=== PATIENT | female | born 1980 | race Caucasian/White ===

== ENCOUNTER 2024-08-09 15:57 | Inpatient (IN) | payer OTHER, SELFPAY ==
[2024-08-09 16:33] VITALS: BMI 40.0
[2024-08-09 16:57] VITALS: BP 135/78; PULSE 99; RESP 16; TEMP 37.3; O2SAT 96; O2SAT 97
[2024-08-09 16:58] LABS: Absolute Lymphocyte Count 1.71 X10^3/uL (0.83-4.51); Absolute Neutrophil Count 7.6 X10^3/uL (2.0-7.7); Basophil# 0.02 X10^3/uL; Basophil% 0.2 % (0-1); Eosinophil# 0.07 X10^3/uL; Eosinophils% 0.7 % (0-5); Hematocrit 37.4 % (37-47); Hemoglobin 12.9 g/dL (12.0-15.0); Lymphocyte # 1.71 X10^3/ul (0.83-4.51); Lymphocyte % 17.1 % (19-41); Mean Corp Hgb Conc 34.5 g/dL (32-36); Mean Corpuscular Hgb 29.5 pg (27.0-32.0); Mean Corpuscular Volume 85.6 fL (81-99); Mean Platelet Vol. 10.1 fl (6.2-12.0); Monocyte# 0.52 X10^3/uL; Monocyte% 5.2 % (0-10); NRBC Flagged by Analyzer 0 % (0-5); Neutrophil # 7.62 X10^3/uL (2.7-7.7); Neutrophil % 76.3 % (47-70); Platelet Count 304 K/mm3 (150-450); RBC Distribution Width CV 12.9 % (11.6-14.6); RBC Distribution Width SD 39.8 fl (35.1-43.9); Red Blood Count 4.37 M/mm3 (4.2-5.4)
[2024-08-09 17:33] LABS: Bedside Glucose 97 mg/dL (74-106)
[2024-08-09 17:50] LABS: Syphilis Antibodies Non-reactive
[2024-08-09 18:00] LABS: Prothrombin Time (Protime)PT. 13.3 SECONDS (11.7-14.9)
[2024-08-09 18:01] LABS: Partial Thromboplast Time 26.3 Seconds (24.1-36.2)
[2024-08-09 18:05] LABS: Hemoglobin A1c 5.2 % (3.8-5.6)
[2024-08-09 18:17] LABS: Mucous, Urine 0 SEEN /hpf (<or=2+); Red Blood Cells-Urine 0 SEEN /hpf (0-5)
[2024-08-09 18:20] LABS: Color, Urine Yellow (Yellow); Glucose, Dipstick Normal (Normal); Leukocyte Esterase-Dipstick Negative /ul (Negative); Nitrite-Dipstick Negative (Negative); Occult Blood-Urine 10 /ul (Negative); Protein-Dipstick Negative (Negative); Urine Bilirubin Dipstick Negative (Negative); Urine Clarity Sl. Cloudy (Clear); Urine Urobilinogen Normal (Normal)
[2024-08-09 18:20] LABS: Fibrinogen 540 mg/dl (203-444)
[2024-08-09 18:31] LABS: ALB/GLOB Ratio 0.8 RATIO (0.9-2.4); AST(SGOT) 14 U/L (15-37); Alanine Aminotransfer ALT/SGPT 23 U/L (13-56); Albumin, Serum 3.1 g/dL (3.2-5.0); Alkaline Phosphatase 42 U/L (45-117); Anion Gap 10 (5-15); BUN 8 mg/dL (7-18); BUN/Creat Ratio 15.3 RATIO (10-20); Chloride 109 mmol/L (98-107); Creatinine, Serum 0.52 mg/dL (0.55-1.02); EST Glomerular Filtration Rate 136 mL/min (>60); Est Glom Filt Rate - Afr Amer 165 mL/min (>60); Estimated Creatinine Clearance 167.27 ml/min; Globulin 3.7 g/dL (2.2-4.2); Glucose 92 mg/dL (74-106); Potassium 3.3 mmol/L (3.5-5.1); Protein, Total 6.8 g/dL (6.4-8.2); Sodium Level 138 mmol/L (136-145)
[2024-08-09] MEDS: miSOPROStol 200 MCG Tablet 800 MCG VAGINAL (18:40)
[2024-08-09 19:01] LABS: Ketone-Dipstick 150 mg/dl (Negative)
--- NOTE | 2024-08-09 19:02 | NURSING ---
Per Dr Ansari patient does not require TOCO or US monitoring
[2024-08-09 19:05] LABS: Bacteria RARE /hpf (None Seen); Squamous Epithelial Cells - UA 0-5 SEEN /hpf (5-10); White Blood Cells 0-5 SEEN /hpf (0-5)
[2024-08-09 19:40] VITALS: TEMP 36.8
[2024-08-09 19:41] VITALS: BP 137/64; PULSE 101; RESP 16; TEMP 36.8
[2024-08-09] MEDS: miSOPROStol 200 MCG Tablet 400 MCG VAGINAL (22:49)
[2024-08-09 22:52] VITALS: BP 138/65; PULSE 94
[2024-08-10] VITALS (48 sets, daily range): BP systolic 98–141; BP diastolic 49–82; PULSE 79–114; RESP 16–18; TEMP 35.5–37.2; O2SAT 82–98
--- NOTE | 2024-08-10 00:44 | PCM.HP.OB ---
HPI - General General Date of Admission: 08/09/24 HPI Narrative NITZA PASTRANA, is a 43 F who presents @ 19w1d with demise, confirmed on ultrasound over the weekend with demise infant measuring 15 weeks. no vb lof no regular ctx no fevers or recent illness. she was checking some BS at home and fastings were elevtaed in the 120s and she had some random sugars in the 200s. she had been receiving care by [facility] the [facility] community [facility] ultrasound confirms no color doppler flow, transverse to oblique presentation normal fluid, scalloping of the head/? lemon sign Maternal Data Information DC Calculator Estimated Delivery Date Method Current WG Current Estimate 01/03/25 Manual 19w 1d PFSH [facility] Medical History (Updated 08/10/24 @ 00:[address] Tiffani Ansari MD) Gestational diabetes Home Medications ?Medication ?Instructions ?Recorded ?Last Taken ?Type NK 08/09/24 Unknown History Allergy/AdvReac Type Severity Reaction Status Date / Time No Known Allergies Allergy Verified 08/09/24 16:33 Surgical History History of surgery Social History Smoking Status: Never smoker History Elective abortions Hx Para 3 Spontaneous abortions Hx # Term Pregnancies Ectopic pregnancies Hx # Pregnancies Multiple births # of living children ROS Constitutional Constitutional: Reports systems reviewed and no addt'l complaints, except as documented Eyes Eyes: Denies change in vision ENT HEENT: Reports systems reviewed and no addt'l complaints, except as documented; Denies headache(s) Cardiovascular Cardiovascular: Reports systems reviewed and no addt'l complaints, except as documented; Denies chest pain or dyspnea Respiratory/Chest Respiratory/Chest: Reports systems reviewed and no addt'l complaints, except as documented Gastrointestinal Gastrointestinal: Reports systems reviewed and no addt'l complaints, except as documented; Denies abdominal pain Genitourinary Genitourinary: Reports systems reviewed and no addt'l complaints, except as documented, contractions Details: present (irregular) and movement Details: present; Denies dysuria or genital lesions Musculoskeletal Musculoskeletal: Reports systems reviewed and no addt'l complaints, except as documented Neurologic Neurologic: Reports systems reviewed and no addt'l complaints, except as documented Endocrine Endocrinology: Reports systems reviewed and no addt'l complaints, except as documented Vital Signs Vital Signs Vital Signs: 08/09/24 16:57 08/09/24 16:57 08/09/24 16:57 Temperature Temperature Source Pulse Rate 99 Respiratory Rate Blood Pressure 135/78 H BP Systolic 135 BP Diastolic 78 Pulse Ox 96 08/09/24 16:57 08/09/24 16:57 08/09/24 16:57 Temperature 99.1 F Temperature Source Temporal Pulse Rate Respiratory Rate 16 Blood Pressure BP Systolic BP Diastolic Pulse Ox 08/09/24 16:57 08/09/24 16:57 08/09/24 19:40 Temperature 99.2 F H 98.2 F Temperature Source Pulse Rate Respiratory Rate Blood Pressure BP Systolic BP Diastolic Pulse Ox 97 08/09/24 19:41 08/09/24 19:41 08/09/24 19:41 Temperature Temperature Source Temporal Pulse Rate 101 H Respiratory Rate Blood Pressure 137/64 H BP Systolic 137 BP Diastolic 64 Pulse Ox 08/09/24 19:41 08/09/24 19:41 08/09/24 22:52 Temperature 98.3 F Temperature Source Pulse Rate Respiratory Rate 16 Blood Pressure 138/65 H BP Systolic 138 BP Diastolic 65 Pulse Ox 08/09/24 22:52 Temperature Temperature Source Pulse Rate 94 Respiratory Rate Blood Pressure BP Systolic BP Diastolic Pulse Ox Weight Weight: 233 lb 7.512 oz Body Mass Index (BMI) 40.0 Physical Exam Const alert, oriented x3, no apparent distress and healthy appearing HEENT normocephalic and moist oral mucous membranes Head and Scalp: atraumatic Neck full ROM, no lymphadenopathy, supple and thyroid normal General: trachea midline Lymph Lymphatic: no lymphadenopathy noted Chest inspection of chest normal Resp normal respiratory effort Cardio regular rate GI soft to palpation and non-tender Inspection: gravid Extremity normal to inspection General Extremity: Negative for edema Skin no rashes or lesions noted Neuro no focal motor deficits and deep tendon reflexes 2+ bilaterally Motor Exam: strength 5/5 throughout and clonus absent Psych mental status grossly normal Labs Labs Labs: Blood Type A NEGATIVE Antibody Screen NEGATIVE Hct 37.4 % (37-47) Hgb 12.9 g/dL (12.0-15.0) Syphilis Total Ab Non-reactive Assessment & Plan (1) demise before 20 weeks with retention of fetus: PLAN: Plan plan demise workup, cytotec IOL
[2024-08-10] MEDS: Acetaminophen 500 MG Tablet PO (02:42)
[2024-08-10] MEDS: fentaNYL 100 MCG/2 ML Ampul IV (02:46)
[2024-08-10] MEDS: miSOPROStol 200 MCG Tablet 400 MCG PO (05:23)
--- NOTE | 2024-08-10 05:41 | OB.VAGDELI_ITS ---
Assessment & Plan (1) Vaginal delivery: COMMENT: vaginal breech delivery 19 week demise measuring 15 weeks, carlos service order dispatcher chief patient Maternal Data Information DC Calculator Estimated Delivery Date Method Current WG Current Estimate 01/03/25 Manual 19w 1d Vaginal Delivery Vaginal Delivery Information Procedure Performed: Spontaneous Vaginal Delivery Surgeon/Practitioner: Tiffani Ansari Date of Procedure: 08/10/24 Pre-Procedure Diagnosis: IUFD 19 weeks Post-Procedure Diagnosis: same Type of anesthesia: None Estimated Blood Loss: 300 Findings Description of procedure: patient was feeling pressure and had increased bleeding. Upon vaginal examination the membranes were bulging through the cervix into the vagina with the presenting part of feet. Patient began having nausea and vomiting and spontaneously delivered in with spontaneous rupture of membranes. Cord was clamped and cut and the infant examined and noted to have low-set ears but otherwise no distinguishing abnormal features. Bleeding was within normal limits. Cord clamp placed on the patient's side of the cord and vaginal exam performed and part of the placenta was felt coming through the cervix additional Cytotec dose was given, pitocin started to aid in delivery of the placenta. Expectant management for the placenta was done and retained products noted after 3 hours so decision for d and c made please see separate operative note. ebl [id number] Multi Select Codes Urinary/Genital Urinary/Genital CPT Codes: Other Procedure See Report ([place] [id number] [place] IOL with cytotec delivery of infant under 20 weeks and then d and c for retained placenta)
--- NOTE | 2024-08-10 05:47 | DCINST_ITS ---
Discharge Instructions Diet Discharge Diet: No restrictions Activity Discharge Activity: Return to Normal Activity, May Not Drive (while taking narcotic pain medications.) and May Shower May resume sexual activity in: 4-6 weeks Dressing / Incision Call your doctor if your incision/area has: Continuous Slow Oozing, Sudden Increased Bleeding, Increased Pain/ Swelling, Increased Redness and Foul Smelling Discharge Follow Up Care Please Follow Up With: Tiffani Ansari MD When: Call [phone] to make an appointment with your doctor in 6 weeks. If you had elevated blood pressure or 4th degree laceration, you will need to be seen in 2 weeks. Test Results: Test results from this visit will be discussed in further detail at your follow- up appointment, if applicable. Discharge Plan Admission Admit Date/Time: 08/09/24 15:10 Attending Provider: Tiffani Ansari Primary Care Provider: Lionel Cruz Discharge Orders/Prescriptions Prescriptions: No Action NK Referrals / Follow Up: Lionel Cruz PA-C [Primary Care Provider] -
[2024-08-10] MEDS: Oxytocin 15 Units/NS 250ml 15 UNITS/250 ML IV.SOLN 83 UNITS IV (06:00)
[2024-08-10] MEDS: Ondansetron 4 MG/2 ML Vial IV (06:21)
--- NOTE | 2024-08-10 07:30 | PLAC_PTH ---
PATIENT: NITZA PASTRANA LOC: [facility] U#:[id number] AGE/SX: 43/F ROOM: WP020 RE08/09/[address]: Dr. Tiffani Ansari MD : 1980 BED: 1 DIS: 08/10/2024 SPEC #: [id number] RECD: 08/10/24 10:59 STATUS: KAVEH CAREY #: [id number] JACEK: 08/10/24 07:[address]: Tiffani Ansari DEPT: SURGICAL PATHOLOGY RECD BY: Althea Phillips ENTERED: 08/10/24 11:57 SP TYPE: PLACENTA OTHR DR: Lionel Cruz PA-C Tissues: Placenta, NOS Procedures: Surgery Specimen Level V HEADER OPERATION: Dilation and curettage, suction PRE-OP DIAGNOSIS: demise before 20 weeks with retention of fetus TISSUE SUBMITTED: Retained placenta MICROSCOPIC DIAGNOSIS Retained placenta: Placental disc - disrupted immature placental tissue and blood clots (108gm). - Focal calcification. Membranes - no pathologic diagnosis. Umbilical cord - three blood vessels and no pathologic diagnosis. : 08/11/2024 MICROSCOPIC DESCRIPTION Slides are reviewed. GROSS DESCRIPTION Received in fixative is one container labeled with the patient's name and designated Retained placenta. The specimen consists of placental tissue with marked disruption, separate pieces of placental tissue and blood clots weighing in aggregate 108gm and measuring 11.0 x 10.0 x 3.0cm. Placental tissue also shows presence of membrane which are watts, davis in color. Centrally inserted umbilical cord measures 16.5cm in length and 0.1cm in diameter. Lunch Cook sections are submitted as follows: 1- Membrane roll, 2- Cord, maternal end, 3 -Cord, end, 4- Placental disc, and maternal surfaces, 5- Placental disc, and maternal surfaces, 6- Placental disc, and maternal surfaces. . 08/10/2024 TC:5 CPT:94935
--- NOTE | 2024-08-10 07:49 | PRE.ANES_ITS ---
ASA Classification* ASA Classification ASA Classification: 3 Assessment & Plan Anesthesia* Anesthesia Assessment Anesthesia Assessment: Discussed sedation and/or anesthesia options, risks, benefits, and alternatives with patient/parents/legal guardian/POA. Questions invited. The patient/parents/legal guardian/POA seems to understand and agrees to proceed with anesthesia plan. Reviewed the physical assessment, medical history, allergy history and patient home medications list prior to surgery/procedure/anesthetic and documented any changes. Performed airway and anesthesia risk assessments. Anesthesia Type Anesthesia Type: MAC (Clear liquids until 5Am, No food over 8 hours) Anesthesia Focused Assessment* Temperature: 98.4 F Pulse Rate: 92 Blood Pressure: 127/58 Respiratory Rate: 18 Pulse Ox: 96 Airway Assessment Mouth opens: >3 cm Mallampati Score: II Focused Labs Anesthesia Preop lab: CBC WBC 10.0 K/mm3 (4.4-11.0) 08/09/24 16:45 RBC 4.37 M/mm3 (4.2-5.4) 08/09/24 16:45 Hgb 12.9 g/dL (12.0-15.0) 08/09/24 16:45 Hct 37.4 % (37-47) 08/09/24 16:45 Plt Count 304 K/mm3 (150-450) 08/09/24 16:45 CHEMISTRY Potassium 3.3 mmol/L (3.5-5.1) L 08/09/24 17:00 Sodium 138 mmol/L (136-145) 08/09/24 17:00 BUN 8 mg/dL (7-18) 08/09/24 17:00 Creatinine 0.52 mg/dL (0.55-1.02) L 08/09/24 17:00 Glucose 92 mg/dL (74-106) 08/09/24 17:00 POC Glucose 97 mg/dL (74-106) 08/09/24 17:03 TSH 1.110 uIU/mL (0.358-3.740) 08/09/24 17:00 COAG PT 13.3 SECONDS (11.7-14.9) 08/09/24 17:00 Pre-Assessment Diagnosis/Proposed Procedure Planned Operative Procedure(s): D&C Anesthesia History 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 When Was Last Pacemaker Check QUESTION #4 FULL TEXT: You/Your Family Experience fever (hyperthermia) with Anesthesia Last Oral Intake Last Oral intake: Last Oral Intake NPO since Meds taken in AM with sips of water? Meds patient instructed to take am of surgery PONV PONV - vice president business & corporate development: PONV - vice president business [employer] corporate development Female HX of Motion Sickness HX of N/V After Surgery Non-Smoker Duration of Surgery greater than 60 minutes Number of Risk Factors PONV Score Height & Weight Height & Weight: Anesthesia: Height & Weight Height 5 ft 4 in 08/09/24 16:33 Weight: 105.9 kg 08/09/24 16:33 Body Mass Index (BMI) 40.0 08/09/24 16:33 Respiratory Assessment Respiratory Assessment - vice president business & corporate development: Respiratory Tract Infection Hx - vice president business & corporate development Hx Respiratory Tract Infection STOP Sleep Apnea STOP Sleep Apnea - vice [employer] business [employer] corporate development: STOP Sleep Apnea - vice [employer] business [employer] corporate development Hx Hypertension Hx Sleep Apnea CPAP BIPAP Do you snore loudly (louder than talking or can be heard Do you often feel tired/ fatigued/ sleepy during daytime? Has anyone observed you stop breathing during sleep? STOP Results QUESTION #5 FULL TEXT : Do you snore loudly (louder than talking or can be heard through closed doors)? Tobacco Use History Tobacco Use History - vice president business & corporate development: Tobacco Use History - vice president business & corporate development Tobacco Use Smoking Status Never smoker 08/09/24 16:53 Hx Tobacco Use No 08/09/24 16:53 Years Smoking Packs Smoked per Day Smoking Cessation Date was within the last 15 years Hx Smoking Cessation Date Hx Smoking Cessation Counseling Hematologic Medial History Hematologic Hx - vice president business & corporate development: Hematologic Medical Hx - claims sorter Hx of Blood Transfusion Hx of Transfusion in last 3 Months Date of Last Transfusion (if within last 3 months) Ever experience any problems with transfusion(s)? Specify any problems Hx of Preganancy in last 3 Months Nurse Filling Out Transfusion & Questions: Date: Time: Patient unable to answer at this time (ie. confused, unrespo /Reproduction History /Reproductive History - [employer] president business [employer] corporate development: /Reproductive Hx- vice president business & corporate development Hx Now Gestational Age (in weeks): 19 08/10/24 06:36 EDC: 01/03/25 08/10/24 06:36 Hx 5 08/09/24 16:53 Hx Para 3 08/09/24 16:53 Hx Section SAB 1 08/09/24 16:53 Active Medications Active Medications: Current Medications Generic Name Dose Route Start Last Admin Trade Name Freq PRN Reason Stop Dose Admin Acetaminophen 500 - 1,000 mg 08/09/24 15:56 08/10/24 02:42 Acetaminophen 500 Mg Tablet PO 1,000 mg Q6H PRN PRN Administration Pain Score 1-3 Al Hydroxide/Mg Hydroxide 15 - 30 ml 08/09/24 15:56 Mag Hydrox/Al Hydrox/Simeth 30 Ml Udc PO Q4H PRN PRN INDIGESTION Carboprost Tromethamine 250 mcg 08/09/24 15:56 Carboprost Tromethamine 250 Mcg/Ml Ampul IM X1 PRN Provider Request Citric Acid/Sodium Citrate 30 ml 08/09/24 15:56 Sodium Citrate/Citric Acid 30 Ml Udc PO X1 PRN Section Fentanyl Citrate 25 - 50 mcg 08/09/24 15:56 08/10/24 02:46 Fentanyl 100 Mcg/2 Ml Ampul IV 25 mcg Q2H PRN PRN Administration Pain Score 4-10 Oxytocin/Sodium Chloride 15 units in 250 mls @ 334 mls/hr 08/09/24 15:56 IV .Q45M PRN Post Vaginal Delivery Lactated Ringer's 1,000 mls @ 999 mls/hr 08/09/24 15:56 IV .Q1H1M PRN Epidural Placement Protocol Lactated Ringer's 1,000 mls @ 50 mls/hr 08/09/24 16:00 08/10/24 06:44 IV 08/13/24 19:59 Not Given .Q20H NANCY Protocol Oxytocin/Sodium Chloride 15 units in 250 mls @ 83 mls/hr 08/10/24 05:46 08/10/24 06:00 IV 08/10/24 08:46 83 mls/hr .Q3H1M ONE Administration Lidocaine HCl 0 ml 08/09/24 15:56 Lidocaine 1% (20 Ml Mdv) 20 Ml Vial INFILT X1 PRN Provider Request Methylergonovine Maleate 0.2 mg 08/09/24 15:56 Methylergonovine 0.2 Mg/Ml Ampul IM X1 PRN Provider Request Misoprostol 400 mcg 08/09/24 15:30 08/10/24 06:43 Misoprostol 200 Mcg Tablet VAGINAL Not Given Q4H NANCY Misoprostol 1,000 mcg 08/09/24 15:56 Misoprostol 200 Mcg Tablet RC X1 PRN Provider Request Ondansetron HCl 4 mg 08/09/24 15:56 08/10/24 06:21 Ondansetron 4 Mg/2 Ml Vial IV 4 mg Q4H PRN PRN Administration NAUSEA Oxytocin 10 units 08/09/24 15:56 Oxytocin 10 Units/Ml Vial IM X1 PRN Post Vaginal Delivery Prochlorperazine Edisylate 10 mg 08/09/24 15:56 Prochlorperazine 10 Mg/2 Ml Vial IV Q6H PRN PRN NAUSEA Sodium Chloride 10 - 40 ml 08/09/24 15:56 0.9% Saline Lock 10 Ml Syringe IV X1 PRN SALINE FLUSH PFSH Medical History Gestational diabetes Home Medications ?Medication ?Instructions ?Recorded ?Last Taken ?Type NK 08/09/24 Unknown History Allergy/AdvReac Type Severity Reaction Status Date / Time No Known Allergies Allergy Verified 08/09/24 16:33 Surgical History History of surgery Social History Smoking Status: Never smoker Review of Systems (Anesthesia) ROS Narrative System reviewed and no additional complaints, except as documented.
--- NOTE | 2024-08-10 07:55 | OP.PCM_ITS ---
Problems Associated Problem List Diagnoses (1) Retained placenta: (2) Vaginal delivery: (3) demise before 20 weeks with retention of fetus: Operative Report (Standard) Operative Information Surgery/Procedure Performed: suction d and c Surgeon: Tiffani Ansari Date of Procedure: 08/10/24 Procedure Start Time: 08:15 Procedure Stop Time: 08:25 Pre-Operative Diagnosis: retained POC Post-Operative Diagnosis: same Select all DRAINS/GRAFTS/IMPLANTS that apply: None Type of Anesthesia: IV Sedation Estimated Blood Loss: 200 Specimen collected: Yes Description of specimen(s) removed: placenta Description of surgery: Patient was taken to the operating room and placed under MAC local anesthesia. She was prepped and draped in the normal sterile fashion the dorsal lithotomy position. Bladder was drained of clear urine and anterior lip of the cervix was grasped and after plcaenta noted at the cervical os was removed, multiple pieces were still seen left as it was very friable and fell apart, and the uterus sounded to 10cm. Cervix was progressively dilated to allow passage of a 10mm suction curette. Progressive passes were made removing the retained products of conception without complication. Sharp curettage confirmed complete removal of the retained products. All instruments were removed from the vagina and excellent hemostasis was noted and the patient was taken to recovery in stable condition. Surgical Findings: retained placenta Heat And Vent Aircraft Mechanic residential treatment specialist: No Complications Complications: No Multi Select Codes Urinary/Genital Urinary/Genital CPT Codes: Other Procedure See Report ([place] [id number] because IOL with cytotec delivery of infant under 20 weeks and then d and c for retained placenta)
[2024-08-10] MEDS: Cefazolin 2 GM in Syringe IV (08:03)
--- NOTE | 2024-08-10 08:42 | PCM.POST.ANE ---
Anesthesia: Postop Eval I Current Vital Signs Temperature: 97.8 F Pulse Rate: 94 Blood Pressure: 122/81 Respiratory Rate: 16 Pulse Ox: 98 Oxygen Delivery Method: Room Air Assessment Airway patent: Yes Spontaneous unlabored respirations: Yes Mental status: Awake and Calm nausea: No Vomiting: No Anesthesia Complication: No Fluid Hydration Crystalloid volume administer (ml): 20 Total IV fluid infused: 20 Progress Note Anesthesia document: Postop Eval 1 completed: Yes
[2024-08-10] MEDS: Rho(D) Immune Globulin 300 MCG (1500 Unit) Syringe IV (10:58)
[2024-08-10 11:14] LABS: Hematocrit 35.5 % (37-47); Hemoglobin 12.3 g/dL (12.0-15.0); Mean Corp Hgb Conc 34.6 g/dL (32-36); Mean Corpuscular Hgb 29.6 pg (27.0-32.0); Mean Corpuscular Volume 85.3 fL (81-99); Mean Platelet Vol. 10.1 fl (6.2-12.0); Platelet Count 316 K/mm3 (150-450); RBC Distribution Width CV 12.9 % (11.6-14.6); RBC Distribution Width SD 39.9 fl (35.1-43.9); Red Blood Count 4.16 M/mm3 (4.2-5.4); White Blood Count 10.1 K/mm3 (4.4-11.0)
--- NOTE | 2024-08-10 12:02 | NURSING ---
weight- 1.6 oz, 0.045 gram, length- 5.5 inches, head circ- 3 1/2 inches
--- NOTE | 2024-08-10 13:03 | CASEMGMT ---
Labor and Delivery Pit Crew Support Worker Sw presented to bedside to offer support to patient following demise. Also present was patient's and support person. Patient states that she has support at home and also found in family members and their gnosticism. Patient states that she is considering talking to her candy cooker helper when they have settled at home. Patient states that they have children at home that they know are going to be curious about their loss and they have been talking about how to help them process this. Sw provided parents with mental health resources and websites to utilize to help them process their loss/ grief. Parents were receptive to sw support. Much supportive listening and empathetic support provided. No other needs or concerns at this time. Zach Hernández, ELECTROTYPER APPRENTICE, ABRASIVE GRINDER
[2024-08-10 13:29] LABS: Kleihauer-Betke POSITIVE
--- NOTE | 2024-08-11 09:11 | POSTOPAN2_ITS ---
Anesthesia Postop Eval I Sum Postop Eval Completion status Anesthesia document: Postop Eval 1 completed: Yes Anesthesia Postop Eval I Summary Anesthesia Postop Eval I Summary: Anesthesia Postop Eval I: Assessment Summary Airway patent Yes 08/10/24 08:43 CHARGE MASTER [email or web address] Spontaneous unlabored Yes 08/10/24 08:43 CHARGE MASTER [email or web address] respirations Mental status Awake,Calm 08/10/24 08:43 CHARGE MASTER [email or web address] nausea No 08/10/24 08:43 CHARGE MASTER [email or web address] Vomiting No 08/10/24 08:43 CHARGE MASTER [email or web address] Anesthesia Postop Eval I: Fluid Summary Crystalloid volume administer 20 08/10/24 08:43 CHARGE MASTER [email or web address] (ml) Colloids volume administered ( ml) Blood Product volume administered (ml) Total IV fluid infused 20 08/10/24 08:43 CHARGE MASTER [email or web address] Anesthesia Postop Eval I: Summary Notes Anesthesia Complication No 08/10/24 08:43 CHARGE MASTER [email or web address] Anesthesia Complication Comment: Post-operative progress note Anesthesia: Postop Eval II Evaluation Mental status: Awake and Calm Pain Level: 1 nausea: No Vomiting: No Complications Anesthesia Complication: No
--- NOTE | 2024-08-11 09:11 | PCM.POSTANE2 ---
Anesthesia Postop Eval I Sum Postop Eval Completion status Anesthesia document: Postop Eval 1 completed: Yes Anesthesia Postop Eval I Summary Anesthesia Postop Eval I Summary: Anesthesia Postop Eval I: Assessment Summary Airway patent Yes 08/10/24 08:43 GRADES 1 THROUGH 5 [email or web address] Spontaneous unlabored Yes 08/10/24 08:43 GRADES 1 THROUGH 5 [email or web address] respirations Mental status Awake,Calm 08/10/24 08:43 GRADES 1 THROUGH 5 [email or web address] nausea No 08/10/24 08:43 GRADES 1 THROUGH 5 [email or web address] Vomiting No 08/10/24 08:43 GRADES 1 THROUGH 5 [email or web address] Anesthesia Postop Eval I: Fluid Summary Crystalloid volume administer 20 08/10/24 08:43 GRADES 1 THROUGH 5 [email or web address] (ml) Colloids volume administered ( ml) Blood Product volume administered (ml) Total IV fluid infused 20 08/10/24 08:43 GRADES 1 THROUGH 5 [email or web address] Anesthesia Postop Eval I: Summary Notes Anesthesia Complication No 08/10/24 08:43 GRADES 1 THROUGH 5 [email or web address] Anesthesia Complication Comment: Post-operative progress note Anesthesia: Postop Eval II Evaluation Mental status: Awake and Calm Pain Level: 1 nausea: No Vomiting: No Complications Anesthesia Complication: No
[2024-08-13 14:10] LABS: Anti-Cardiolipin Ab, IgA, Qn < 9 APL U/mL (0-11); Anti-Cardiolipin Ab, IgG, Qn < 9 GPL U/mL (0-14); Anti-Cardiolipin Ab, IgM, Qn < 9 MPL U/mL (0-12); Beta-2-Glycoprotein I IgA <9 (0-25); Beta-2-Glycoprotein I IgG <9 (0-20); Beta-2-Glycoprotein I IgM <9 (0-32); CMV Acute Antibody IgM < 30.0 AU/mL (0.0-29.9); Dilute Prothrombin Time (dPT) 34.2 sec (0.0-47.6); Dilute Russell Viper Venom 38.8 sec (0.0-47.0); Interpretation Comment: (.); PARVOVIRUS B19 IGG 0.2 index (0.0-0.8); PARVOVIRUS B19 IGM 0.1 index (0.0-0.8); Thrombin Time 16.2 sec (0.0-23.0); Toxoplasma Gondii IgG < 3.0 IU/mL (0.0-7.1); Toxoplasma Gondii IgM < 3.0 AU/mL (0.0-7.9); dPT Confirm Ratio 1.22 Ratio (0.00-1.34)
== END 2024-08-10 13:15 | disposition home or self-care (01) | DRG 798 ==
PROVIDERS: Advanced Practice Midwife; Admitting Provider Obstetrics & Gynecology; PCP Physician Assistant; Referring Provider Obstetrics & Gynecology; Visit Provider Obstetrics & Gynecology
PROC: 10D17ZZ Extraction of Products of Conception, Retained, Via Natural or Artificial Opening (ICD-10-PCS; principal; 2024-08-10 07:15)
DX: O02.1 Missed abortion (principal); Z37.1 Single stillbirth; O32.1XX0 Maternal care for breech presentation, not applicable or unspecified; Z3A.19 19 weeks gestation of pregnancy; O73.1 Retained portions of placenta and membranes, without hemorrhage
CPT/HCPCS: 59050; 80053; 81001; 82962; 83036; 84443; 85025; 85027; 85384; 85460; 85610; 85730; 86146; 86147; 86644; 86645; 86747; 86777; 86778; 86780; 86850; 86900; 86901; 87086; 87088; 87653; 88307; 90384; 99221; G0378; J2405; J2790; J2791; J3490

== ENCOUNTER → 2025-01-17 | Outpatient (CLI) | payer OTHER, SELFPAY ==
[2025-01-17 12:10] LABS: Absolute Lymphocyte Count 1.47 X10^3/uL (0.83-4.51); Absolute Neutrophil Count 6.7 X10^3/uL (2.0-7.7); Basophil# 0.03 X10^3/uL; Basophil% 0.3 % (0-1); Eosinophil# 0.01 X10^3/uL; Eosinophils% 0.1 % (0-5); Hematocrit 38.9 % (37-47); Hemoglobin 13.2 g/dL (12.0-15.0); Lymphocyte # 1.47 X10^3/ul (0.83-4.51); Mean Corp Hgb Conc 33.9 g/dL (32-36); Mean Corpuscular Hgb 28.5 pg (27.0-32.0); Monocyte# 0.44 X10^3/uL; Monocyte% 5.1 % (0-10); NRBC Flagged by Analyzer 0 % (0-5); Neutrophil # 6.67 X10^3/uL (2.7-7.7); Neutrophil % 77.3 % (47-70); Platelet Count 320 K/mm3 (150-450); RBC Distribution Width CV 14.9 % (11.6-14.6); RBC Distribution Width SD 45.2 fl (35.1-43.9); Red Blood Count 4.63 M/mm3 (4.2-5.4); White Blood Count 8.6 K/mm3 (4.4-11.0)
[2025-01-17 12:56] LABS: Hemoglobin A1c 5.3 % (<=5.6)
[2025-01-17 13:17] LABS: HIV Nonreactive (Nonreactive); Hepatitis B Surface Antigen Nonreactive (Nonreactive); Hepatitis C Antibody Nonreactive (Nonreactive); Rubella IgG Nonreactive (Nonreactive); Syphilis Antibodies Nonreactive (Nonreactive)
[2025-01-19 06:07] LABS: Chlamydia By Nucleic Acid AMP Negative (Negative); Gonococcus By Nucleic Acid AMP Negative (Negative)
[2025-01-20 10:08] LABS: HPV APTIMA, High Risk Negative (Negative)
== END | disposition home or self-care (01) ==
PROVIDERS: PCP Physician Assistant; Referring Provider Obstetrics & Gynecology; Visit Provider Obstetrics & Gynecology
DX: Z12.4 Encounter for screening for malignant neoplasm of cervix (principal); O99.210 Obesity complicating pregnancy, unspecified trimester; E66.9 Obesity, unspecified; Z3A.00 Weeks of gestation of pregnancy not specified
CPT/HCPCS: 36415; 83036; 85025; 86703; 86762; 86780; 86803; 86850; 86900; 86901; 87086; 87088; 87340; 87491; 87591; 87624; 88175; G0145

== ENCOUNTER → 2025-02-15 | Outpatient (CLI) | payer OTHER, SELFPAY ==
[2025-02-15 16:35] LABS: Protein, Urine (Random) 7.4 mg/dL (0.0-12.0); Protein:Creat Ratio 74 mg/g CRE (0-200)
== END | disposition home or self-care (01) ==
LOC: LABSPEC 14:10
PROVIDERS: PCP Physician Assistant; Referring Provider Nurse Practitioner Women's Health; Visit Provider Nurse Practitioner Women's Health
DX: I10 Essential (primary) hypertension (principal)
CPT/HCPCS: 82570; 84156

== ENCOUNTER → 2025-03-09 | Outpatient (CLI) | payer OTHER, SELFPAY ==
--- NOTE | 2025-03-09 14:46 | US_ITS ---
PROCEDURE: OB ANATOMY W/ TRANSVAGINAL 03/09/2025 REASON FOR EXAM: ANATOMY TECHNIQUE: High resolution obstetric ultrasound performed using a 2D transducer. Standard views obtained, including biometry, anatomy survey, and Doppler studies. FINDINGS Number: 1 Position: Variable between breech and transverse to the right Placental Position: Anterior, low-lying, 0.5 cm from the cervix. Placental Abnormalities: Placenta grade 0 Cervical length: 3.6 cm with closed cervical os DIMENSIONS: Biparietal Diameter: 5.02 cm/21 weeks, 2 days Head Circumference: 19.24 cm/21 weeks, 3 days Abdominal Circumference: 17.14 cm/22 weeks, 1 day Femur Length: 3.36 cm/20 weeks, 4 days ESTIMATED WEIGHT: 423 g +/-64 g ESTIMATED WEIGHT PERCENTILE (24+ weeks): 81 % ESTIMATED GESTATIONAL AGE: Baseline: 20 weeks, 5 days by LMP By Ultrasound: 21 weeks, 0 days ESTIMATED DATE OF DELIVERY: Baseline: 07 22 25 By Ultrasound: 07 20 25 BIOPHYSICAL ASSESSMENT: Amniotic Fluid Volume: 6.2 cm largest vertical pocket. Amniotic Fluid Index: Not calculated (8-24 cm normal range) Cardiac Motion: 164 (average) Trunk and Limb Motion: Present. MATERNAL ANATOMY: Adnexa: Neither maternal ovary is successfully identified. Cervical Length (if measured): 3.6 cm ANATOMY: Spine: Visualized Cranium: Visualized Cerebellum: Visualized 1.93 cm Cisterna Magna: Visualized 0.62 cm Cavum Septum Pellucidi: Visualized Lateral Ventricles: Visualized. 0.86 cm Choroid Plexus: Visualized Midline Falx: Nuchal Fold: Upper Lip: Visualized Heart: Four-chamber heart visualized Ventricular Outflow Tracts: Stomach: Visualized Kidneys: Visualized Bladder: Visualized Umbilical Cord: Visualized cord insertion three-vessel cord visualized Extremities: Visualized US/OB Anatomy w/ Transvaginal IMPRESSION: Live intrauterine gestation 21 weeks, 0 days and estimated due date of 07/20/20 Visualization of midline falx, nuchal fold and ventricular outflow tracts not r ecorded No gross anatomic defects. Estimated weight percentile: 81%. Reading [facility] [place]
== END | disposition home or self-care (01) ==
LOC: US 14:45
PROVIDERS: PCP Physician Assistant; Referring Provider Nurse Practitioner Women's Health; Visit Provider Nurse Practitioner Women's Health
DX: O09.90 Supervision of high risk pregnancy, unspecified, unspecified trimester (principal); Z3A.00 Weeks of gestation of pregnancy not specified
CPT/HCPCS: 76805; 76817

== ENCOUNTER → 2025-04-26 | Outpatient (CLI) | payer OTHER, SELFPAY ==
[2025-04-26 12:24] LABS: Hematocrit 34.8 % (37-47); Hemoglobin 11.9 g/dL (12.0-15.0); Immature Granulocytes Count 0.020 X10^3/uL (0.0-0.0); Mean Corp Hgb Conc 34.2 g/dL (32-36); Mean Corpuscular Volume 87.7 fL (81-99); Mean Platelet Vol. 10.4 fl (6.2-12.0); NRBC Flagged by Analyzer 0 % (0-5); Platelet Count 295 K/mm3 (150-450); RBC Distribution Width CV 13.2 % (11.6-14.6); RBC Distribution Width SD 42.5 fl (35.1-43.9); Red Blood Count 3.97 M/mm3 (4.2-5.4); White Blood Count 9.6 K/mm3 (4.4-11.0)
[2025-04-26 13:53] LABS: Glucose Challenge Gest 1H 50g 119 mg/dL (70-140); HIV Nonreactive (Nonreactive); Syphilis Antibodies Nonreactive (Nonreactive)
== END | disposition home or self-care (01) ==
PROVIDERS: Advanced Practice Midwife; PCP Physician Assistant; Referring Provider Obstetrics & Gynecology; Visit Provider Obstetrics & Gynecology
DX: O09.92 Supervision of high risk pregnancy, unspecified, second trimester (principal); Z3A.25 25 weeks gestation of pregnancy; Z13.1 Encounter for screening for diabetes mellitus
CPT/HCPCS: 36415; 82950; 85025; 86703; 86780; 86850; 86900; 86901

== ENCOUNTER → 2025-05-10 | Outpatient (CLI) | payer OTHER, SELFPAY | END | disposition home or self-care (01) | PROVIDERS: PCP Physician Assistant; Visit Provider Obstetrics & Gynecology | DX: O26.899 Other specified pregnancy related conditions, unspecified trimester (principal); Z67.91 Unspecified blood type, Rh negative; Z3A.00 Weeks of gestation of pregnancy not specified | CPT/HCPCS: 36415; 86850; 86900; 86901 ==

== ENCOUNTER → 2025-05-27 | Outpatient (CLI) | payer OTHER, SELFPAY ==
--- NOTE | 2025-05-27 11:47 | US_ITS ---
PROCEDURE: OB LIMITED WITH BIOMETRICS 05/27/2025 REASON FOR EXAM: GROWTH TECHNIQUE: OB LIMITED WITH BIOMETRICS COMPARISON: Prior study dated March 09, 2025. FINDINGS Number: 1 Position: Breech Placental Position: Anterior and not low-lying Placental Abnormalities: No evidence of previa. DIMENSIONS: Biparietal Diameter: 8.48 cm: 34 weeks and 1 day: 93rd percentile/ Head Circumference: 31.78 cm: 35 weeks and 5 days: 95th percentile/ Abdominal Circumference: 29.14 cm: 33 weeks and 1 day: 80 percentile/ Femur Length: 5.93 cm: 31 weeks and 0 days: 13 percentile/ ESTIMATED WEIGHT: 2041 g plus/-306 g ESTIMATED WEIGHT PERCENTILE (24+ weeks): 63rd ESTIMATED GESTATIONAL AGE: Baseline: 32 weeks and 0 days By Ultrasound: 34 weeks and 5 days ESTIMATED DATE OF DELIVERY: Baseline: July 22, 2025 By Ultrasound: July 03, 2025 BIOPHYSICAL ASSESSMENT: Amniotic Fluid Volume: 5.8 cm Amniotic Fluid Index: 10.8 cm (8-24 cm normal range) Cardiac Motion: 143 beats per min (average) Trunk and Limb Motion: Present. MATERNAL ANATOMY: Adnexa: Neither maternal ovary is successfully identified. Cervical Length (if measured): 4.1 cm US/OB Limited With Biometrics IMPRESSION: Single live intrauterine gestation with a mean gestational age of 32 weeks and 2 days. The measurements obtained today fall within normal expected range. Reading Location: [facility]
== END | disposition home or self-care (01) ==
PROVIDERS: PCP Physician Assistant; Referring Provider Obstetrics & Gynecology; Visit Provider Obstetrics & Gynecology
DX: O09.523 Supervision of elderly multigravida, third trimester (principal); O44.43 Low lying placenta NOS or without hemorrhage, third trimester; O99.213 Obesity complicating pregnancy, third trimester; O16.3 Unspecified maternal hypertension, third trimester; Z3A.32 32 weeks gestation of pregnancy; E66.9 Obesity, unspecified
CPT/HCPCS: 76816

== ENCOUNTER 2025-06-21 17:00 | Observation (INO) | payer SELFPAY ==
[2025-06-21] VITALS (15 sets, daily range): BP systolic 109–142; BP diastolic 55–79; PULSE 83–105; RESP 14–18; TEMP 36.4–36.9; O2SAT 95–100; BMI 40.4
[2025-06-21] MEDS: LACTATED RINGERS 1,000 ML 999 ML IV (12:20)
[2025-06-21] MEDS: Betamethasone/Betamethasone 30 MG/5 ML Vial 12 MG IM (13:06)
[2025-06-22 03:32] VITALS: BP 104/57; PULSE 92; RESP 18; TEMP 36.4; O2SAT 96
[2025-06-22 05:56] VITALS: PULSE 112; O2SAT 97
--- NOTE | 2025-06-22 06:53 | OB.TRI.PN ---
Progress Notes Date of Service: 06/21/25 Progress Note: Patient presents for triage evaluation secondary to uterine contractions at 35 weeks gestation. Was sent from the office for uterine contractions every 3 minutes and tachycardia. FHT: 130 Moderate variability reactive no decelerations category I tracing [place]: Moderate to strong Contractions every 3-4 minutes- now irregular and mild, no cervical change. SVE: 4.5/20/-4 Assessment and plan: IV hydration, Celestone IM x 2, Reactive NST, reassuring maternal and status patient discharged to home to follow-up in office. Will need growth US after friday See problem list details for additional plan information. Charges/Coding Multi Select Codes Visit Charges Office Visit/Consults: 88248 OV L3 Est 20min Urinary/Genital Urinary/Genital CPT Codes: 01335-61 non-stress test Interp Assessment & Plan (1) Uterine contractions during : COMMENT: celestone x 2, IV hydration, reactive NST, no cervical change (2) AMA (advanced maternal age) multigravida 35+: QUALIFIERS: Trimester: third trimester Qualified Code(s): O09.523 - Supervision of elderly multigravida, third trimester COMMENT: normal growth at 32 weeks (3) FH: Down syndrome: COMMENT: Pt Nephew (4) Obesity affecting : QUALIFIERS: Trimester: second trimester Obesity type affecting : unspecified obesity Qualified Code(s): O99.212 - Obesity complicating , second trimester COMMENT: [id number]. Weekly NSTs with growth US every 4w (5) Mild anxiety: (6) HTN (hypertension): QUALIFIERS: Hypertension type: unspecified Qualified Code(s): I10 - Essential (primary) hypertension COMMENT: Pt reports a little on the high side- baseline pih labs at [facility] ob (7) Supervision of high-risk : QUALIFIERS: Trimester: third trimester Qualified Code(s): O09.93 - Supervision of high risk , unspecified, third trimester COMMENT: PRR , [place] 07/22/25, CHIQUI Aldridge & Sohail(adopted), Pérez Medina Matthew, (Joel-19 wk demise), Jomar (8) : QUALIFIERS: Weeks of gestation: 35 weeks Qualified Code(s): Z3A.35 - 35 weeks gestation of COMMENT: discussed NIPT & Carrier testing-undecided (9) History of miscarriage, currently : COMMENT: x2, 2014 9 wk miscarriage, demise @ 19wks 08/2024 (10) Rh negative state in antepartum period: COMMENT: Rhogam given 05/10/25
--- NOTE | 2025-06-22 08:04 | OB.TRI.HP_ITS ---
HPI - General General Date of Admission: 06/21/25 HPI Narrative NITZA PASTRANA, is a 44 F who presents with PTL smptoms irregular ctx no vb lof good fm reeling better overnight no uti symptoms Maternal Data Information DC Calculator Estimated Delivery Date Method Current WG Current Estimate 07/22/25 LMP (Certain) 35w 5d PFSH PFSH Medical History PCOS (polycystic ovarian syndrome) demise before 20 weeks with retention of fetus Retained placenta Gestational diabetes Home Medications ?Medication ?Instructions ?Recorded ?Last Taken ?Type chromium 1,000 mcg tablet See Rx Instructions PO QDAY 01/14/25 Unknown History multivit-min no.71-iron fum 28 cap PO 01/14/25 Unknown History mg-folate no.1 1 mg-dha 300 mg capsule (PNV-[place]andem[place]) ondansetron HCl 4 mg tablet 4 mg PO Q6H PRN nausea and 01/17/25 06/14/25 08:00 Rx vomiting #60 tabs 4 mg Allergy/AdvReac Type Severity Reaction Status Date / Time No Known Allergies Allergy Verified 06/21/25 10:01 Family History Mother Cancer, Onset Age: 65 Leukemia- chronic Sister Cancer, Onset Age: 17 Lymphoma x2 Surgical History H/O dilation and curettage History of surgery Social History adopted: No household members: spouse and children housing: house number of children: 5 current occupational status: employed and unemployed current occupation: [employer] current occupational exposures/hazards: No pets and animals: Yes (chickens, cows) pets and animals: farm animals history of recent travel: No sexually active: Yes Smoking Status: Never smoker alcohol intake: never substance use type: does not use diet: diabetic well-balanced diet: daily or most days caffeine: No eating out: rarely or never during the past year weight has: remained stable what type of physical activity do you participate in: walking frequency: daily duration: < 15 minutes/day song/faith: Anabaptism seatbelt use: sometimes do you feel safe at home: Yes additional social history: - Jomar Singh History 6 Elective abortions Hx Para 3 Spontaneous abortions 2 Hx # Term Pregnancies Ectopic pregnancies Hx # Pregnancies Multiple births # of living children 3 Past Pregnancies Del. Date Name GA/Weeks Outcome Route Bth Weight Gen Labor Lgth Anesthesia Del Locatn Provider FOB Unknown 10/2014 9 spontaneous Unknown adopted Oly (20yo) Unknown adopted Sohail(13yo) 12/13/16 Jose Juan Hadley 40 live - full term 7# Male none Henrik Hadley 07/04/19 Pérez 40 live - full term 9# Male Home Jomar 08/14/21 Sina 38 live - full term 8# Male Home Jomar 08/10/24 Joel 19 still Male none [facility] Delivery Date: Last Updated by: Sonya Courtney D&C Delivery Date: 12/13/16 Last Updated by: Sonya Courtney IOL post date Delivery Date: 07/04/19 Last Updated by: Sonya Courtney PUPS Delivery Date: 08/10/24 Last Updated by: Terra Bains, RN See problem list for complications, and ? diabetes, anora testing sent, & D and C done for retained placenta Visit Details Expected Delivery Route/Plan Labor Preferences- CB/BF classes: no labor support person: Jomar labor intervention preferences: [] pain management options preferred: limited cut cord/dad catch: yes : yes PP control planned: [] discussed possible routes of delivery and associated risks: [] special requests: [] Plans Covid status: [] Flu vaccine: [] Tdap vaccine:declined Rhogam: [] LARC form signed: [] Problem list reviewed and updated with the most current plan of care details and appropriate orders placed. Relevant counseling for the gestational age provided. Continue routine care and follow up unless otherwise noted in visit notes/problem list details OB Flowsheet Initial Weight: 230 lb Date -?-?-?--?-?-?-?-?-?-?-?-?- EGA Weight BP Urine Prot -?-?-?-?-?-?-?-?-?-?-?-?- Glucose FHR FuHt Pres Dilation -?-?-?-?-?-?-?-?-?-?-?-?- Effaced St Visit Note 01/17/25 -?-?-?-?-?-?-?-?-?-?-?-?- 13w 3d 229 lb (-16 oz) 131/81 -?-?-?-?-?-?-?-?-?-?-?-?- 150 -?-?-?-?-?-?-?-?-?-?-?-?- JV- CRL consiste nt with LMP> patient declines NIPT despite AMA. plan for MFM anatomy scan. 02/15/25 -?-?-?-?-?-?-?-?-?-?-?-?- 17w 4d 233 lb 2 oz (+3 lb 2 oz) 132/82 Negative -?-?-?-?-?-?-?-?-?-?-?-?- Negative 151 -?-?-?-?-?-?-?-?-?-?-?-?- -no VB. Nano crum. Getting baseline P/C ratio today as was unable to do with NOB labs. She will RTO 3 weeks inorder to save on drivers with [address] fina 03/09/25 -?-?-?-?-?-?-?-?-?-?-?-?- 20w 5d 233 lb 4 oz (+3 lb 4 oz) 134/82 Negative -?-?-?-?-?-?-?-?-?-?-?-?- Negative 154 -?-?-?-?-?-?-?-?-?-?-?-?- MH-No VB. Quentin Gerard McdonaldHans Has glucose monitor at home and checked FBS and a couple >100 but she doesn't always go 8 hr for fasting. Discussed this, diet. She is checking because of issues in last . She will call w abnormal readings. 04/14/25 -?-?-?-?-?-?-?-?-?-?-?-?- 25w 6d 232 lb 6 oz (+2 lb 6 oz) 116/69 Negative -?-?-?-?-?-?-?-?-?-?-?-?- Negative 154 -?-?-?-?-?-?-?-?-?-?-?-?- KW- no vb/lof/ct x. good fm. adding high protein snack in the evenings to help with fasting numbers- around 100. will bring in numbers next visit and plans to do the 1 hour gct 04/26/25 -?-?-?-?-?-?-?-?-?-?-?-?- 27w 4d 231 lb 6 oz (+1 lb 6 oz) 126/83 Negative -?-?-?-?-?-?-?-?-?-?-?-?- Negative 145 29 -?-?-?-?-?-?-?-?-?-?-?-?- Sm- no vb lof go od fm no regular ctx Sm- no vb lof good fm no reg ular ctx cbc gct today too early for rhogam will give next visit 05/10/25 -?-?-?-?-?-?-?-?-?-?-?-?- 29w 4d 234 lb 1 oz (+4 lb 1 oz) 120/78 Negative -?-?-?-?-?-?-?-?-?-?-?-?- Negative 140 29 -?-?-?-?-?-?-?-?-?-?-?-?- JV- plannign 32 week scan to look at placenta placement. (was 0.5 cm from os) rhogam done today. 05/27/25 -?-?-?-?-?-?-?-?-?-?-?-?- 32w 0d 237 lb (+7 lb) 133/85 Negative -?-?-?-?-?-?-?-?-?-?-?-?- Negative 155 32 -?-?-?-?-?-?-?-?-?-?-?-?- LC- no vb/ctx/lo f. has growth scan this afternoon. mild le swelling in afternoons otherwise no complaints. 06/08/25 -?-?-?-?-?-?-?-?-?-?-?-?- 33w 5d 235 lb 2 oz (+5 lb 2 oz) 111/76 Negative -?-?-?-?-?-?-?-?-?-?-?-?- Negative 140 -?-?-?-?-?-?-?-?-?-?-?-?- MH-reactive NST. No VB, LOF. Good FM. No concerns 06/21/25 -?-?-?-?-?-?-?-?-?-?-?-?- 35w 4d 235 lb 8 oz (+5 lb 8 oz) 124/76 Negative -?-?-?-?-?-?-?-?-?-?-?-?- Negative 165 3 -?-?-?-?-?-?-?-?-?-?-?-?- 70 -3 KW- NST sh ows tachycardia of 165-170 and regular ctx. GBS done and to WP for monitoring ROS Constitutional Constitutional: Reports systems reviewed and no addt'l complaints, except as documented and as per HPI ENT HEENT: Reports systems reviewed and no addt'l complaints, except as documented Cardiovascular Cardiovascular: Reports systems reviewed and no addt'l complaints, except as documented Respiratory/Chest Respiratory/Chest: Reports systems reviewed and no addt'l complaints, except as documented Gastrointestinal Gastrointestinal: Reports as per HPI Genitourinary Genitourinary: Reports as per HPI Musculoskeletal Musculoskeletal: Reports systems reviewed and no addt'l complaints, except as documented Integumentary Integumentary: Reports systems reviewed and no addt'l complaints, except as documented Neurologic Neurologic: Reports systems reviewed and no addt'l complaints, except as documented Physical Exam Const alert, oriented x3 and no apparent distress HEENT Head and Scalp: normocephalic and atraumatic Neck full ROM and no lymphadenopathy Chest inspection of chest normal Resp normal respiratory effort GI GI Narrative: gravid, abdomen nontender, AGA Manual OB Exam: dilated, effaced and station NST FHR Rate Baby A Baseline: 140 Variability:: Moderate Accelerations:: 15 x 15 Decelerations:: None NST Reactive:: Yes FHR Category:: Category I Uterine Activity:: regular q 2-4 Assessment & Plan (1) Uterine contractions during : COMMENT: celestone x 2, IV hydration, reactive NST, no cervical change (2) AMA (advanced maternal age) multigravida 35+: QUALIFIERS: Trimester: third trimester Qualified Code(s): O09.523 - Supervision of elderly multigravida, third trimester COMMENT: normal growth at 32 weeks (3) FH: Down syndrome: COMMENT: Pt Nephew (4) Obesity affecting : QUALIFIERS: Trimester: second trimester Obesity type affecting : unspecified obesity Qualified Code(s): O99.212 - Obesity complicating , second trimester COMMENT: [id number]. Weekly NSTs with growth US every 4w (5) Mild anxiety: (6) HTN (hypertension): QUALIFIERS: Hypertension type: unspecified Qualified Code(s): I10 - Essential (primary) hypertension COMMENT: Pt reports a little on the high side- baseline pih labs at [facility] [place] ob (7) Supervision of high-risk : QUALIFIERS: Trimester: third trimester Qualified Code(s): O09.93 - Supervision of high risk , unspecified, third trimester COMMENT: PRR , [place] 07/22/25, CHIQUI Aldridge & Sohail(adopted), Pérez Medina Matthew, ([facility]-19 wk demise), Jomar (8) : QUALIFIERS: Weeks of gestation: 35 weeks Qualified Code(s): Z3A.35 - 35 weeks gestation of COMMENT: discussed NIPT & Carrier testing-undecided (9) History of miscarriage, currently : COMMENT: x2, 2014 9 wk miscarriage, demise @ 19wks 08/2024 (10) Rh negative state in antepartum period: COMMENT: Rhogam given 05/10/25 PLAN: Plan stable for discharge to home Charges/Coding Multi Select Codes Visit Charges Office Visit/Consults: 57944 OV L3 Est 20min Urinary/Genital Urinary/Genital CPT Codes: 42290-31 non-stress test Interp
[2025-06-22 08:05] VITALS: BP 111/52; PULSE 93; PULSE 99; RESP 14; TEMP 36.7; O2SAT 99
[2025-06-22 08:32] LABS: Color, Urine Yellow (Yellow); Glucose, Dipstick Normal (Normal); Leukocyte Esterase-Dipstick 100 /ul (Negative); Nitrite-Dipstick Negative (Negative); Occult Blood-Urine 25 /ul (Negative); Protein-Dipstick 30 mg/dl (Negative); Specific Gravity, Urine 1.020 (1.002-1.030); Urine Bilirubin Dipstick Negative (Negative)
[2025-06-22 08:34] LABS: Ketone-Dipstick 150 mg/dl (Negative)
[2025-06-22] MEDS: Betamethasone/Betamethasone 30 MG/5 ML Vial 12 MG IM (08:45)
== END 2025-06-22 10:15 | disposition home or self-care (01) ==
LOC: WPOUT 06-22 09:02 → WP 06-22 09:02
PROVIDERS: Obstetrics & Gynecology; Admitting Provider Advanced Practice Midwife; PCP Physician Assistant; Referring Provider Advanced Practice Midwife; Visit Provider Advanced Practice Midwife
DX: O62.9 Abnormality of forces of labor, unspecified (principal); O10.013 Pre-existing essential hypertension complicating pregnancy, third trimester; Z3A.35 35 weeks gestation of pregnancy; O09.523 Supervision of elderly multigravida, third trimester; O26.893 Other specified pregnancy related conditions, third trimester; O09.93 Supervision of high risk pregnancy, unspecified, third trimester; O99.891 Other specified diseases and conditions complicating pregnancy; R00.0 Tachycardia, unspecified; O99.213 Obesity complicating pregnancy, third trimester
CPT/HCPCS: 96360; 36415; 59025; 59050; 76815; 81002; 87077; 87086; 87088; 87186; 96372; 99221; G0378; J0702

== ENCOUNTER → 2025-06-21 | Outpatient (CLI) | payer SELFPAY ==
--- OUTSIDE RECORDS SUMMARY | 2025-06-21 21:11 | XMS RPT_ITS | CCD ---
Author Organization [facility] Care Team Providers Care Container Packer Operator Name Role Phone Anthony ACUNA, Dr. Flowers Primary Care Provider [phone] Anthony ACUNA, Dr. Flowers Referring Provider Dr. Natalie Shelton DO Attending Provider Yovany Shell DO, Dr. Estrada Referring Provider Oscar KRAUSE-Beti Keith Attending Provider Oscar KRAUSE-CBeti Referring Provider [phone] Nori Lomeli CNM Attending Provider Coty BOUDREAUX, Dr. Nixon Attending Provider [phone] Dr. Tiffani Ansari MD Referring Provider [phone] Anthony ACUNA, Dr. Flowers Primary Care Provider [phone] Anthony ACUNA, Dr. Flowers Referring Provider Dr. Natalie Shelton DO Attending Provider Jen Gerber CNM Attending Provider Lionel Cruz Referring Unavailable Natalie Shelton Attending Unavailabl e Lionel Cruz Primary Care Unavailable Lionel Cruz Referring Unavailable Lionel Cruz Primary Care Unavailable Tiffani Ansari Attending Unavailable Beti Moore NP Attending Unavailable Lionel Cruz Primary Care Unavailable CruzLionel alcantar Referring Unavailable CruzLionel alcantar Referring Unavailable Jen Gerber Attending Unavailable Lionel Cruz Primary Care Unavailable Beti Moore NP Attending Unavailable CruzLionel Primary Care Unavailable Cruz, Lionel Referring Unavailable Vande Zulema Shellfer Attending Unavailabl e Cruz, Lionel Primary Care Unavailable Cruz, Lionel Referring Unavailable Cruz, Lionel Referring Unavailable Cruz, Lionel Primary Care Unavailable Crane COLD ROLLING MACHINE SETTER, Beti Attending Unavailable Oscar COLD ROLLING MACHINE SETTER, Beti Attending Unavailable Cruz, Lionel Primary Care Unavailable Crane COLD ROLLING MACHINE SETTER, Beti Referring Unavailable Cruz, Lionel Primary Care Unavailable Marcanthony, Tiffani Referring Unavailable Marcanthony, Tiffani Attending Unavailable Crane COLD ROLLING MACHINE SETTER, Beti Attending Unavailable Cruz, Lionel Primary Care Unavailable Oscar COLD ROLLING MACHINE SETTER, Beti Referring Unavailable Vande Velde, Natalie Referring Unavailabl e Vande Velde, Natalie Attending Unavailabl e Cruz, Lionel Primary Care Unavailable Cruz, Lionel Primary Care Unavailable Marcanthony, Tiffani Referring Unavailable Marcanthony, Tiffani Attending Unavailable Cruz, Lionel Primary Care Unavailable Marcanthony, Tiffani Admitting Unavailable Marcanthony, Tiffani Referring Unavailable Marcanthony, Tiffani Attending Unavailable Cruz, Lionel Primary Care Unavailable Marcanthony, Tiffani Admitting Unavailable Marcanthony, Tiffani Attending Unavailable Yanee Velrufus, Natalie Attending Unavailabl e Cruz, Lionel Primary Care Unavailable Cruz, Lionel Referring Unavailable Cruz, Lionel Primary Care Unavailable Nori Lomeli Attending Unavailable Cruz, Lionel Primary Care Unavailable VimalanthonyTiffani Consulting Unavailable Marcanthony, Tiffani Admitting Unavailable Marcanthony, Tiffani Referring Unavailable Marcanthony, Tiffani Attending Unavailable Cruz, Lionel Referring Unavailable Cruz, Lionel Primary Care Unavailable VimalanthonyTiffani Attending Unavailable Dr. Lionel Cruz PA-C Primary Care Provider Dr. Lionel Cruz PA-C Referring Provider Oscar COLD ROLLING MACHINE SETTER-CBeti Attending Provider Oscar COLD ROLLING MACHINE SETTER-C, Beti Referring Provider Medications Current Medications Medication Drug Class(es) Dates Sig (Normalized) Sig (Original) Chromium (15 sources) Standardized Chemical Allergen Start: 01-14-2025 take 1 tablet by mouth once daily Chromium 1,000 mcg tablet Active 0 PO daily January 14, 2025 12:00am 1000mcg orally daily; Mv-Mins 36-Qung-Phwwj No.1-Dha (Pnv-Zwolle) 28-1-300 mg capsule (15 sources) Start: 01-14-2025 Mv-Mins 78-Cuhz-Uwjgz No.1-Dha (Pnv-Zwolle) 28-1-300 mg capsule Active NMA PO January 14, 2025 12:00am ondansetron 4 mg oral tablet (15 sources) Serotonin-3 Receptor Antagonist Start: 01-17-2025 take 1 tablet by mouth every six hours as needed for nausea and vomiting Ondansetron Hcl 4 mg tablet Active 4 mg PO EVERY 6 HOURS as needed for nausea and vomiting 60 4 January 17, 2025 12:00am Problems Active Problems Problem Classification Problem Date Documented Date Episodic/Chronic Anxiety disorders (20 sources) Mild anxiety; Translations: [Anxiety disorder, unspecified] Onset: 06-13-2025 01-14-2025 Chronic Essential hypertension (20 sources) Hypertensive disorder; Translations: [Essential (primary) hypertension] Onset: 06-13-2025 01-18-2025 Chronic Comment on above: Pt reports a little on the high side- baseline pih labs at new ob Hemorrhage during ; abruptio placenta; placenta previa (20 sources) Low lying placenta; Translations: [Low lying placenta NOS or without hemorrhage, unspecified trimester] Onset: 04-14-2025 03-14-2025 Episodic Comment on above: [facility] will rescan 28 w eeks resolved Other complications of ; puerperium affecting management of mother (15 sources) Retained placenta; Translations: [Retained placenta without hemorrhage] 01-14-2025 Episodic Other complications of (20 sources) Maternal obesity complicating , childbirth and the puerperium, antepartum; Translations: [Obesity complicating , unspecified trimester] 01-14-2025 Chronic Comment on above: HGBA1C [id number]-of. Weekly NS Ts with growth US every 4w Other complications of (1 source) Obesity complicating , second trimester; Translations: [Obesity complicating , second trimester] Onset: 06-14-2025 Chronic Other complications of (1 source) Obesity complicating , unspecified trimester; Translations: [Obesity complicating , unspecified trimester] Onset: 01-17-2025 Chronic Other complications of (20 sources) H/O: miscarriage; Translations: [Supervision of with other poor reproductive or obstetric history, unspecified trimester] 01-14-2025 Episodic Comment on above: x2, 2014 9 wk miscar riage, demise @ 19wks 08/2024 Other complications of (20 sources) High risk ; Translations: [Supervision of high risk , unspecified, unspecified trimester] 01-14-2025 Episodic Comment on above: , [place] 07/22/25, [facility] Soh[facility](adopted), [facility] Matthew, (Joel-19 wk demise), Jomar PRR , [place] , [facility] Sohail(adopted), P[facility]rez Medina Matthew, (Joel-19 wk demise), Jomar Other complications of (15 sources) with abortive outcome; Translations: [Missed ] 01-14-2025 Episodic Other complications of (20 sources) RhD negative; Translations: [Other specified related conditions, unspecified trimester] 01-14-2025 Episodic Comment on above: Rhogam given 05/10/25 Other complications of (20 sources) Multigravida of advanced maternal age; Translations: [Supervision of elderly multigravida, unspecified trimester] 04-14-2025 Episodic Comment on above: normal growth at 32 weeks Other complications of (1 source) Other specified related conditions, unspecified trimester; Translations: [Other specified related conditions, unspecified trimester] Onset: 06-13-2025 Episodic Other complications of (1 source) Supervision of with other poor reproductive or obstetric history, unspecified trimester; Translations: [Supervision of with other poor reproductive or obstetric history, unspecified trimester] Onset: 06-13-2025 Episodic Other complications of (1 source) Supervision of elderly multigravida, unspecified trimester; Translations: [Supervision of elderly multigravida, unspecified trimester] Onset: 06-13-2025 Episodic Other complications of (1 source) Supervision of high risk , unspecified, third trimester; Translations: [Supervision of high risk , unspecified, third trimester] Onset: 06-13-2025 Episodic Other complications of (1 source) Supervision of elderly multigravida, third trimester; Translations: [Supervision of elderly multigravida, third trimester] Onset: 06-13-2025 Episodic Other complications of (1 source) Supervision of high risk , unspecified, second trimester; Translations: [Supervision of high risk , unspecified, second trimester] Onset: 05-10-2025 Episodic Other complications of (1 source) Supervision of high risk , unspecified, unspecified trimester; Translations: [Supervision of high risk , unspecified, unspecified trimester] Onset: 05-10-2025 Episodic Other and delivery including normal (20 sources) Vaginal delivery; Translations: [Encounter for full-term uncomplicated delivery] 01-14-2025 Episodic Comment on above: vaginal breech radha mireles 19 week demise measuring 15 weeks, carlos cna patient discussed NIPT & Car rier testing-undecided Residual codes; unclassified (2 sources) FH: Chromosomal anomaly; Translations: [Family history of other congenital malformations, deformations and chromosomal abnormalities] 01-14-2025 Episodic Comment on above: Pt Nephew Residual codes; unclassified (20 sources) Down's child in family; Translations: [Family history of other congenital malformations, deformations and chromosomal abnormalities] 01-14-2025 Episodic Comment on above: Pt Nephew Residual codes; unclassified (1 source) Unspecified blood type, Rh negative; Translations: [Unspecified blood type, Rh negative] Onset: 06-13-2025 Episodic Residual codes; unclassified (1 source) Family history of other congenital malformations, deformations and chromosomal abnormalities; Translations: [Family history of other congenital malformations, deformations and chromosomal abnormalities] Onset: 06-13-2025 Episodic Residual codes; unclassified (1 source) 33 weeks gestation of ; Translations: [33 weeks gestation of ] Onset: 06-13-2025 Episodic Residual codes; unclassified (1 source) 25 weeks gestation of ; Translations: [25 weeks gestation of ] Onset: 04-14-2025 Episodic Past or Other Problems Problem Classification Problem Date Documented Da te Episodic/Chronic Other complications of (2 sources) Missed ; Translations: [Missed ] Onset: 02-15-2025 Episodic Residual codes; unclassified (1 source) 17 weeks gestation of ; Translations: [17 weeks gestation of ] Onset: 02-15-2025 Episodic Results Test Name Value Interpretation Reference Range Facility Laboratory - Chemistry and C hemistry - challengeOrdered By: Tiffani Littlemustapha on 06-14-2025 Glucose Ql (U) Negative [facility] Laboratory - UrinalysisOrder ed By: Tiffani Ansari on 06-14-2025 Protein Ql (U) Negative [facility] Bench Grinder Office Visit Reporton 06-14-2025 Bench Grinder Office Visit Report [facility] [address], [address] [place] [address] OFFICE VISIT Date of Service: 06/14/25 MR#: [id number] Acct: [id number] Name: NITZA PASTRANA Rep #: [id number] : 1980 Provider: Dr. Tiffani amor MD Age/Sex: 44/F Location: [facility] [place] Status: Signed Intake Vital Signs 04/26/25 10:18 05/10/25 10:21 06/08/25 09:54 06/14/25 10:50 06/14/25 10:51 Height 5 ft 4 in 5 ft 4 in 5 ft 4 in 5 ft 4 in 5 ft 4 in Weight: 235 lb 2 oz 235 lb 7 oz BMI 40.4 40.4 BP 111/76 121/73 H Intake Visit Reasons: 35wk nst only Video Surveillance Technician Required: No Is patient in pain?: No Allergies No Known Allergies Allergy (Verified 06/14/25 10:50) Medications ???Medication ???Instructions ???Recorded ???Confirmed ???Type chromium 1,000 mcg tablet See Rx Instructions PO QDAY 06/14/25 History multivit-min no.71-iron fum 28 cap PO 01/14/25 06/14/25 History mg-folate no.1 1 mg-dha 300 mg capsule (PNV-Zwolle) ondansetron HCl 4 mg tablet 4 mg PO Q6H PRN nausea and 01/17/ 5 06/14/25 Rx vomiting #60 tabs Last Menstrual Period: 10/15/24 Zika: Zika virus screening: Negative : No PFSH PFSH Medical History PCOS (polycystic ovarian syndrome) demise before 20 weeks with retention of fetus Retained placenta Gestational diabetes Surgical History H/O dilation and curettage History of surgery Family History Mother Cancer, Onset Age: 65 Leukemia- chronic Sister Cancer, Onset Age: 17 Lymphoma x2 Social History adopted: No household members: spouse and children housing: house number of children: 5 current occupational status: employed and unemployed current occupation: [employer] current occupational exposures/hazards: No pets and animals: Yes (chickens, cows) pets and animals: farm animals history of recent travel: No sexually active: Yes Smoking Status: Never smoker alcohol intake: never substance use type: does not use diet: diabetic well-balanced diet: daily or most days caffeine: No eating out: rarely or never during the past year weight has: remained stable what type of physical activity do you participate in: walking frequency: daily duration: < 15 minutes/day song/sikh: Confucianism seatbelt use: sometimes do you feel safe at home: Yes additional social history: - Jomar Singh History 6 Elective abortions Hx Para 3 Spontaneous abortions 2 Hx # Term Pregnancies Ectopic pregnancies Hx # Pregnancies Multiple births # of living children 3 Past Pregnancies Del. Date Name GA/Weeks Outcome Route Bth Weight Gen Labor Lgth Anesthesia Del Locatn Provider FOB Unknown 10/2014 9 spontaneous Unknown adopted Oly (20yo) Unknown adopted Sohail(13yo) 12/13/16 Jose Juan Hadley 40 live - full term 7# Male none Henrik Hadley 07/04/19 Pérez 40 live - full term 9# Male Home Jomar 08/14/21 Sina 38 live - full term 8# Male Home Jomar 08/10/24 [facility] 19 still Male none [facility] SM Delivery Date: Last Updated by: Sonya Garzon C Delivery Date: 12/13/16 Last Updated by: Sonya Courtney IOL post date Delivery Date: 07/04/19 Last Updated by: Sonya Tamara Courtney PUPS Delivery Date: 08/10/24 Last Updated by: Terra Bains, RN See problem list for complications, and ? diabetes, anora testing sent, D and C done for retained placenta HPI 35wk nst only Details: NITZA PASTRANA is a 44 year old who presents for routine OB visit. OB Visit DC Calculator Estimated Delivery Date Method Current WG Current Estimate 07/22/25 LMP (Certain) 35w 1d Expected Delivery Route/Plan Labor Preferences- CB/BF classes: no labor support person: Jomar labor intervention preferences: [] pain management options preferred: limited cut cord/dad catch: yes : yes PP control planned: [] discussed possible routes of delivery and associated risks: [] special requests: [] Specific Issue/Plans Covid status: [] Flu vaccine: [] Tdap vaccine:declined Rhogam: [] LARC form signed: [] Problem list reviewed and updated with the most current plan of care details and appropriate orders placed. Relevant counseling for the gestational age provided. Continue routine care and follow up unless otherwise noted in visit notes/problem list details Initial Weight: 230 lb Date -???-???-???-???-?? ?-???-???-???-???-? ??-???-???- EGA Weight BP Urine Pr (more content not included)... Normal [facility] Laboratory - Chemistry and C hemistry - challengeOrdered By: Beti Moore on 06-08-2025 Glucose Ql (U) Negative [facility] Laboratory - UrinalysisOrder ed By: Beti Moore on 06-08-2025 Protein Ql (U) Negative [facility] Bench Grinder Office Visit Reporton 06-08-2025 Bench Grinder Office Visit Report [facility] [address] [place] [address], [address] [place] [address] OFFICE VISIT Date of Service: 06/08/25 MR#: [id number] Acct: [id number] Name: NITZA PASTRANA Rep #: [id number] : 1980 Provider: KALYANI corrigan Age/Sex: 44/F Location: [facility] [place] Status: Signed Intake Vital Signs 04/26/25 10:18 05/27/25 09:46 06/08/25 09:54 Height 5 ft 4 in 5 ft 4 in 5 ft 4 in Weight: 237 lb 235 lb 2 oz BMI 40.6 40.4 BP 133/85 H 111/76 Intake Visit Reasons: 34wk ob/nst Chief Complaint: 34 Week OB/NST Video Surveillance Technician Required: No Is patient in pain?: No Allergies No Known Allergies Allergy (Verified 06/08/25 09:54) Medications ???Medication ???Instructions ???Recorded ???Confirmed ???Type chromium 1,000 mcg tablet See Rx Instructions PO QDAY 06/08/25 History multivit-min no.71-iron fum 28 cap PO 01/14/25 06/08/25 History mg-folate no.1 1 mg-dha 300 mg capsule (PNV-Zwolle) ondansetron HCl 4 mg tablet 4 mg PO Q6H PRN nausea and 5 06/08/25 Rx vomiting #60 tabs Last Menstrual Period: 10/15/24 Zika: Zika virus screening: Negative : No PFSH PFSH Medical History PCOS (polycystic ovarian syndrome) demise before 20 weeks with retention of fetus Retained placenta Gestational diabetes Surgical History H/O dilation and curettage History of surgery Family History Mother Cancer, Onset Age: 65 Leukemia- chronic Sister Cancer, Onset Age: 17 Lymphoma x2 Social History adopted: No household members: spouse and children housing: house number of children: 5 current occupational status: employed and unemployed current occupation: [employer] current occupational exposures/hazards: No pets and animals: Yes (chickens, cows) pets and animals: farm animals history of recent travel: No sexually active: Yes Smoking Status: Never smoker alcohol intake: never substance use type: does not use diet: diabetic well-balanced diet: daily or most days caffeine: No eating out: rarely or never during the past year weight has: remained stable what type of physical activity do you participate in: walking frequency: daily duration: < 15 minutes/day song/sikh: Confucianism seatbelt use: sometimes do you feel safe at home: Yes additional social history: - Jomar Singh History 6 Elective abortions Hx Para 3 Spontaneous abortions 2 Hx # Term Pregnancies Ectopic pregnancies Hx # Pregnancies Multiple births # of living children 3 Past Pregnancies Del. Date Name GA/Weeks Outcome Route Bth Weight Infant Gen Labor Lgth Anesthesia Del Locatn Provider FOB Unknown 10/2014 9 spontaneous Unknown adopted Oly (20yo) Unknown adopted Sohail(13yo) 12/13/16 Jose Juan Hadley 40 live - full term 7# Male none Henrik Carpenter Jomar 07/04/19 P[facility]rez 40 live - full term 9# Male Home Jomar 08/14/21 Sina 38 live - full term 8# Male Home [place] 08/10/24 [facility] 19 still Male none [facility] SM Delivery Date: Last Updated by: Sonya Garzon C Delivery Date: 12/13/16 Last Updated by: Sonya Courtney IOL post date Delivery Date: 07/04/19 Last Updated by: Sonya Courtney PUPS Delivery Date: 08/10/24 Last Updated by: Terra Bains, RN See problem list for complications, and ? diabetes, anora testing sent, D and C done for retained placenta HPI 34wk ob/nst Details: NITZA PASTRANA is a 44 year old who presents for routine OB visit. OB Visit DC Calculator Estimated Delivery Date Method Current WG Current Estimate 07/22/25 LMP (Certain) 33w 5d Expected Delivery Route/Plan Labor Preferences- CB/BF classes: no labor support person: Jomar labor intervention preferences: [] pain management options preferred: limited cut cord/dad catch: yes : yes PP control planned: [] discussed possible routes of delivery and associated risks: [] special requests: [] Specific Issue/Plans Covid status: [] Flu vaccine: [] Tdap vaccine:declined Rhogam: [] LARC form signed: [] Problem list reviewed and updated with the most current plan of care details and appropriate orders placed. Relevant counseling for the gestational age provided. Continue routine care and follow up unless otherwise noted in visit notes/problem list details Initial Weight: 230 lb Date -???-???-???-???-?? ?-???-???-???-???-? ??-???-???- EGA Weight BP Urine Prot -???-???-???-???-?? ?-???-?? (more content not included)... Normal [facility] Laboratory - Chemistry and C hemistry - challengeOrdered By: Jen Gerber on 05-27-2025 Glucose Ql (U) Negative [facility] Laboratory - UrinalysisOrder ed By: Jen Gerber on 05-27-2025 Protein Ql (U) Negative [facility] OB Limited With Biometricson 05-27-2025 OB Limited With Biometrics [facility] [address] [place], [place] [id number] OB Limited With Biometrics MR#: [id number] Acct: [id number] Name: NITZA PASTRANA Rep #: [id number] : 1980 F 44 From: Feliberto vela MD PCP: Lionel Cruz PA-C Status: [facility] Study: OB Limited With Biometrics Date of Exam: 05/27 Exam# [id number] Ordering Dr: Tiffani Ansari PROCEDURE: OB LIMITED WITH BIOMETRICS 05/27/2025 REASON FOR EXAM: GROWTH TECHNIQUE: OB LIMITED WITH BIOMETRICS COMPARISON: Prior study dated March 09, 2025. FINDINGS Number: 1 Position: Breech Placental Position: Anterior and not low-lying Placental Abnormalities: No evidence of previa. DIMENSIONS: Biparietal Diameter: 8.48 cm: 34 weeks and 1 day: 93rd percentile/ Head Circumference: 31.78 cm: 35 weeks and 5 days: 95th percentile/ Abdominal Circumference: 29.14 cm: 33 weeks and 1 day: 80 percentile/ Femur Length: 5.93 cm: 31 weeks and 0 days: 13 percentile/ ESTIMATED WEIGHT: 2041 g plus/-306 g ESTIMATED WEIGHT PERCENTILE (24+ weeks): 63rd ESTIMATED GESTATIONAL AGE: Baseline: 32 weeks and 0 days By Ultrasound: 34 weeks and 5 days ESTIMATED DATE OF DELIVERY: Baseline: July 22, 2025 By Ultrasound: July 03, 2025 BIOPHYSICAL ASSESSMENT: Amniotic Fluid Volume: 5.8 cm Amniotic Fluid Index: 10.8 cm (8-24 cm normal range) Cardiac Motion: 143 beats per min (average) Trunk and Limb Motion: Present. MATERNAL ANATOMY: Adnexa: Neither maternal ovary is successfully identified. Cervical Length (if measured): 4.1 cm US/OB Limited With Biometrics IMPRESSION: Single live intrauterine gestation with a mean gestational age of 32 weeks and 2 days. The measurements obtained today fall within normal expected range. Reading Location: [id number] CC: KALPANA Cruz; Dr. Tiffani Ansari MD Bow Tacker: Signed Normal [facility] Bench Grinder Office Visit Reporton 05-27-2025 Bench Grinder Office Visit Report [facility] [address], [address] [place] [address] OFFICE VISIT Date of Service: 05/27/25 MR#: [id number] Acct: [id number] Name: NITZA PASTRANA Rep #: [id number] : 1980 Provider: ROSEMARY fernandez Age/Sex: 44/F Location: [facility] [place] Status: Signed Intake Vital Signs 03/09/25 13:51 05/10/25 10:21 05/27/25 09:46 Height 5 ft 4 in 5 ft 4 in 5 ft 4 in Weight: 237 lb BMI 40.6 BP 133/85 H Intake Visit Reasons: 32wk ob Video Surveillance Technician Required: No Is patient in pain?: No Allergies No Known Allergies Allergy (Verified 05/27/25 09:46) Medications ???Medication ???Instructions ???Recorded ???Confirmed ???Type chromium 1,000 mcg tablet See Rx Instructions PO QDAY 05/27/25 History multivit-min no.71-iron fum 28 cap PO 01/14/25 05/27/25 History mg-folate no.1 1 mg-dha 300 mg capsule (PNV-Zwolle) ondansetron HCl 4 mg tablet 4 mg PO Q6H PRN nausea and 5 05/27/25 Rx vomiting #60 tabs Last Menstrual Period: 10/15/24 Zika: Zika virus screening: Negative : No Have you fallen in the past year?: No PFSH PFSH Medical History PCOS (polycystic ovarian syndrome) demise before 20 weeks with retention of fetus Retained placenta Gestational diabetes Surgical History H/O dilation and curettage History of surgery Family History Mother Cancer, Onset Age: 65 Leukemia- chronic Sister Cancer, Onset Age: 17 Lymphoma x2 Social History adopted: No household members: spouse and children housing: house number of children: 5 current occupational status: employed and unemployed current occupation: [employer] current occupational exposures/hazards: No pets and animals: Yes (chickens, cows) pets and animals: farm animals history of recent travel: No sexually active: Yes Smoking Status: Never smoker alcohol intake: never substance use type: does not use diet: diabetic well-balanced diet: daily or most days caffeine: No eating out: rarely or never during the past year weight has: remained stable what type of physical activity do you participate in: walking frequency: daily duration: < 15 minutes/day song/sikh: Confucianism seatbelt use: sometimes do you feel safe at home: Yes additional social history: - Jomar Singh History 6 Elective abortions Hx Para 3 Spontaneous abortions 2 Hx # Term Pregnancies Ectopic pregnancies Hx # Pregnancies Multiple births # of living children 3 Past Pregnancies Del. Date Name GA/Weeks Outcome Route Bth Weight Infant Gen Labor Lgth Anesthesia Del Locatn Provider FOB Unknown 10/2014 9 spontaneous Unknown adopted Oly (20yo) Unknown adopted Sohail(13yo) 12/13/16 Jose Juan Hadley 40 live - full term 7# Male none Henrik Hadley 07/04/19 Pérez 40 live - full term 9# Male Home Jomar 08/14/21 Sina 38 live - full term 8# Male Home Jomar 08/10/24 [facility] 19 still Male none [facility] SM Delivery Date: Last Updated by: Sonya Garzon C Delivery Date: 12/13/16 Last Updated by: Sonya Courtney IOL post date Delivery Date: 07/04/19 Last Updated by: Sonya Courtney PUPS Delivery Date: 08/10/24 Last Updated by: Terra Bains, RN See problem list for complications, and ? diabetes, anora testing sent, D and C done for retained placenta HPI 32wk ob Details: NITZA PASTRANA is a 44 year old who presents for routine OB visit. OB Visit DC Calculator Estimated Delivery Date Method Current WG Current Estimate 07/22/25 LMP (Certain) 32w 0d Expected Delivery Route/Plan Labor Preferences- CB/BF classes: [] labor support person: [] labor intervention preferences: [] pain management options preferred: [] cut cord/dad catch: [] : [] PP control planned: [] discussed possible routes of delivery and associated risks: [] special requests: [] Specific Issue/Plans Covid status: [] Flu vaccine: [] Tdap vaccine:declined Rhogam: [] LARC form signed: [] Problem list reviewed and updated with the most current plan of care details and appropriate orders placed. Relevant counseling for the gestational age provided. Continue routine care and follow up unless otherwise noted in visit notes/problem list details Initial Weight: 230 lb Date -???-???-???-???-?? ?-???-???-???-???-? ??-???-???- EGA Weight BP Urine Prot -???-???-???-???-?? ?-???-???-???-???-? ??-???-???- Glucose FHR FuHt Pres Dilation (more content not included)... Normal [facility] - Chemistry and C hemistry - challengeOrdered By: Natalie Shell on 05-10-2025 Glucose Ql (U) Negative [facility] - UrinalysisOrder ed By: Natalie Shell on 05-10-2025 Protein Ql (U) Negative [facility] Bench Grinder Office Visit Reporton 05-10-2025 Bench Grinder Office Visit Report [facility]'s [address], [address] [place] [address] OFFICE VISIT Date of Service: 05/10/25 MR#: [id number] Acct: [id number] Name: NITZA PASTRANA Rep #: [id number] : 1980 Provider: Dr. Natalie Bonner, Age/Sex: 44/F Location: [facility] [place] Status: Signed Intake Vital Signs 03/09/25 13:51 04/26/25 10:18 05/10/25 10:20 05/10/25 10:21 Height 5 ft 4 in 5 ft 4 in 5 ft 4 in 5 ft 4 in Weight: 234 lb 1 oz BMI 40.1 BP 120/78 Intake Visit Reasons: 30wk ob Video Surveillance Technician Required: No Is patient in pain?: No Allergies No Known Allergies Allergy (Verified 05/10/25 10:20) Medications ???Medication ???Instructions ???Recorded ???Confirmed ???Type chromium 1,000 mcg tablet See Rx Instructions PO QDAY 05/10/25 History multivit-min no.71-iron fum 28 cap PO 01/14/25 05/10/25 History mg-folate no.1 1 mg-dha 300 mg capsule (PNV-Zwolle) ondansetron HCl 4 mg tablet 4 mg PO Q6H PRN nausea and 5 05/10/25 Rx vomiting #60 tabs Last Menstrual Period: 10/15/24 Zika: Zika virus screening: Negative : No PFSH PFSH Medical History PCOS (polycystic ovarian syndrome) demise before 20 weeks with retention of fetus Retained placenta Gestational diabetes Surgical History H/O dilation and curettage History of surgery Family History Mother Cancer, Onset Age: 65 Leukemia- chronic Sister Cancer, Onset Age: 17 Lymphoma x2 Social History adopted: No household members: spouse and children housing: house number of children: 5 current occupational status: employed and unemployed current occupation: [employer] current occupational exposures/hazards: No pets and animals: Yes (chickens, cows) pets and animals: farm animals history of recent travel: No sexually active: Yes Smoking Status: Never smoker alcohol intake: never substance use type: does not use diet: diabetic well-balanced diet: daily or most days caffeine: No eating out: rarely or never during the past year weight has: remained stable what type of physical activity do you participate in: walking frequency: daily duration: < 15 minutes/day song/sikh: Confucianism seatbelt use: sometimes do you feel safe at home: Yes additional social history: - Jomar Singh History 6 Elective abortions Hx Para 3 Spontaneous abortions 2 Hx # Term Pregnancies Ectopic pregnancies Hx # Pregnancies Multiple births # of living children 3 Past Pregnancies Del. Date Name GA/Weeks Outcome Route Bth Weight Infant Gen Labor Lgth Anesthesia Del Locatn Provider FOB Unknown 10/2014 9 spontaneous Unknown adopted Oly (20yo) Unknown adopted Sohail(13yo) 12/13/16 Jose Juan Hadley 40 live - full term 7# Male none Henrik Carpenter Jomar 07/04/19 Pérez 40 live - full term 9# Male Home Jomar 08/14/21 Sina 38 live - full term 8# Male Home Jomar 08/10/24 [facility] 19 still Male none [facility] SM Delivery Date: Last Updated by: Sonya Garzon C Delivery Date: 12/13/16 Last Updated by: Sonya Courtney IOL post date Delivery Date: 07/04/19 Last Updated by: Sonya Courtney PUPS Delivery Date: 08/10/24 Last Updated by: Terra Bains, RN See problem list for complications, and ? diabetes, anora testing sent, D and C done for retained placenta HPI 30wk ob Details: NITZA PASTRANA is a 44 year old who presents for routine OB visit. OB Visit DC Calculator Estimated Delivery Date Method Current WG Current Estimate 07/22/25 LMP (Certain) 29w 4d Expected Delivery Route/Plan Labor Preferences- CB/BF classes: [] labor support person: [] labor intervention preferences: [] pain management options preferred: [] cut cord/dad catch: [] : [] PP control planned: [] discussed possible routes of delivery and associated risks: [] special requests: [] Specific Issue/Plans Covid status: [] Flu vaccine: [] Tdap vaccine:declined Rhogam: [] LARC form signed: [] Problem list reviewed and updated with the most current plan of care details and appropriate orders placed. Relevant counseling for the gestational age provided. Continue routine care and follow up unless otherwise noted in visit notes/problem list details Initial Weight: 230 lb Date -???-???-???-???-?? ?-???-???-???-???-? ??-???-???- EGA Weight BP Urine Prot -???-???-???-???-?? ?-???-???-???-???-? ??-???-???- Glucose FHR FuHt (more content not included)... Normal [facility] Type AND Screenon 05-10-2025 Ab SCREEN GEL Negative Normal [facility] Comment on above: Order Comment: PN Performed By: #### L 501.0900 #### [facility] [address] [place], [place] [address]chris [place], [address] Absolute lymphocyte countOrd ered By: Nori Lomeli on 04-26-2025 Lymphocytes Auto (Unsp spec) [#/Vol] 1.53 10*3/uL 0.83-4.51 [facility] Absolute neutrophil countOrd ered By: Nori Lomeli on 04-26-2025 Neutrophils (Bld) [#/Vol] 7.6 10*3/uL 2.0-7.7 [facility] Automated lymphocyte count a s percentage of total leukocytesOrdered By: Nori Lomeli on 04-26-2025 Lymphocytes/100 WBC Auto (Unsp spec) 15.9 % Low 19-41 [facility] Basophil percentageOrdered B y: Nori Lomeli on 04-26-2025 Basophils/100 WBC (Bld) 0.2 % 0-1 [facility] CBC W/Diff, Automatedon 04-06 Absolute Lymph 1.53 X10 3/uL Normal 0.83-4.51 [facility] Comment on above: Performed By: #### L 100.0100, BTS, L3890.6006, L501.0250, L509.8002 #### [facility] [address] [place], [address] Absolute Neut 7.6 X10 3/uL Normal 2.0-7.7 [facility] Comment on above: Performed By: #### L 100.0100, BTS, L3890.6006, L501.0250, L509.8002 #### [facility] [address] [place], [address] Basophils/100 WBC (Bld) 0.2 % Normal 0-1 [facility] Comment on above: Performed By: #### L 100.0100, BTS, L3890.6006, L501.0250, L509.8002 #### [facility] [address] [place], [address] Eosinophils/100 WBC (Bld) 0.2 % Normal 0-5 [facility] Comment on above: Performed By: #### L 100.0100, BTS, L3890.6006, L501.0250, L509.8002 #### [facility] [address] [place], [address] Erythrocyte distribution width (RBC) [Ratio] 13.2 % Normal 11.6-14.6 [facility] Comment on above: Performed By: #### L 100.0100, BTS, L3890.6006, L501.0250, L509.8002 #### [facility] [address] [place], [address] Hematocrit (Bld) [Volume fraction] 34.8 % Low 37-47 [facility] Comment on above: Performed By: #### L 100.0100, BTS, L3890.6006, L501.0250, L509.8002 #### [facility] [address] [place], [address] Hemoglobin (Bld) [Mass/Vol] 11.9 g/dL Low 12.0-15.0 [facility] Comment on above: Performed By: #### L 100.0100, BTS, L3890.6006, L501.0250, L509.8002 #### [facility] [address] [place], [address] IG% 0.200 Normal 0.0-0.9 [facility] Comment on above: Result Comment: IG% - Immature Granulocytes (promyelocytes, myelocytes and metamyelocytes) > 1% indicates that a LEFT SHIFT is Present. Performed By: #### L 100.0100, BTS, L3890.6006, L501.0250, L509.8002 #### [facility] [address] [place], [address] Lymphocytes/100 WBC (Bld) 15.9 % Low 19-41 [facility] Comment on above: Performed By: #### L 100.0100, BTS, L3890.6006, L501.0250, L509.8002 #### [facility] [address] [place], [address] MCH (RBC) [Entitic mass] 30.0 pg Normal 27.0-32.0 [facility] Comment on above: Performed By: #### L 100.0100, BTS, L3890.6006, L501.0250, L509.8002 #### [facility] [address] [place], [address] MCHC (RBC) [Mass/Vol] 34.2 g/dL Normal 32-36 [facility] Comment on above: Performed By: #### L 100.0100, BTS, L3890.6006, L501.0250, L509.8002 #### [facility] [address] [place], [address] MCV (RBC) [Entitic vol] 87.7 fL Normal 81-99 [facility] Comment on above: Performed By: #### L 100.0100, BTS, L3890.6006, L501.0250, L509.8002 #### [facility] [address] [place], [address] Monocytes/100 WBC (Bld) 4.8 % Normal 0-10 [facility] Comment on above: Performed By: #### L 100.0100, BTS, L3890.6006, L501.0250, L509.8002 #### [facility] [address] [place], [address] Neutrophils/100 WBC (Bld) 78.7 % High 47-70 [facility] Comment on above: Performed By: #### L 100.0100, BTS, L3890.6006, L501.0250, L509.8002 #### [facility] [address] [place], [address] Nucleated RBC (Bld) [#/Vol] 0 10*3/uL Normal 0-5 [facility] Comment on above: Performed By: #### L 100.0100, BTS, L3890.6006, L501.0250, L509.8002 #### [facility] [address] [place], [address] Platelet mean volume (Bld) [Entitic vol] 10.4 fL Normal 6.2-12.0 [facility] Comment on above: Performed By: #### L 100.0100, BTS, L3890.6006, L501.0250, L509.8002 #### [facility] [address] [place], [address] Platelets (Bld) [#/Vol] 295 10*3/uL Normal 150-450 [facility] Comment on above: Performed By: #### L 100.0100, BTS, L3890.6006, L501.0250, L509.8002 #### [facility] [address] [place], [address] RBC (Bld) [#/Vol] 3.97 10*6/uL Low 4.2-5.4 [facility] Comment on above: Performed By: #### L 100.0100, BTS, L3890.6006, L501.0250, L509.8002 #### [facility] [address] [place], [address] RDW SD 42.5 fl Normal 35.1-43.9 [facility] Comment on above: Performed By: #### L 100.0100, BTS, L3890.6006, L501.0250, L509.8002 #### [facility] [address] [place], [address] WBC (Bld) [#/Vol] 9.6 10*3/uL Normal 4.4-11.0 [facility] Comment on above: Performed By: #### L 100.0100, BTS, L3890.6006, L501.0250, L509.8002 #### [facility] [address] [place], [address] Eosinophil percentageOrdered By: Nori Lomeli on 04-26-2025 Eosinophils/100 WBC (Bld) 0.2 % 0-5 [facility] Erythrocyte distribution wid th ratioOrdered By: Nori Lomeli on 04-26-2025 Erythrocyte distribution width (RBC) [Ratio] 13.2 % 11.6-14.6 [facility] Erythrocyte distribution wid th standard deviationOrdered By: Nori Lomeli on 04-26-2025 Erythrocyte distribution width (RBC) [Ratio] 42.5 fl 35.1-43.9 [facility] Glucose Challenge Gest 1H 50 patty 04-26-2025 GLU GEST 50g 1H 119 mg/dL Normal 70-140 [facility] Comment on above: Performed By: #### L 100.0100, BTS, L3890.6006, L501.0250, L509.8002 #### [facility] [address] [place], [place], [id number] Glucose measurement at 2 josee rs post-dose gestational glucose tolerance testOrdered By: Nori Lomeli on 04-26-2025 Glucose [Mass/Vol] 119 mg/dL 70-140 [facility] HIVon 04-26-2025 HIV Non-Reactive Normal Nonreactive [facility] Comment on above: Result Comment: Non- Reactive Reactive Repeatedly reactive samples must be confirmed according to CDC recommended confirmatory algorithms. The subresults for either HIVAG or AHIV can be used as an aid in the selection of the confirmation algorithm for reactive samples. Send out specimens with Reactive results to [facility] for confirmation. Order the HIV antibody detection and differentiation: lc#[id number] Performed By: #### L 100.0100, BTS, L3890.6006, L501.0250, L509.8002 #### [facility] [address] [place], [place], [id number] Hematocrit Auto (Bld) [Volum e fraction]Ordered By: Nori Lomeli on 04-26-2025 Hematocrit (Bld) [Volume fraction] 34.8 % Low 37-47 [facility] Hemoglobin measurementOrdere d By: Nori Lomeli on 04-26-2025 Hemoglobin (Bld) [Mass/Vol] 11.9 g/dL Low 12.0-15.0 [facility] Immature granulocytes/100 WB C Auto (Bld)Ordered By: Nori Lomeli on 04-26-2025 Immature granulocytes/100 WBC (Bld) 0.200 % 0.0-0.9 [facility] Comment on above: IG% - Immature Granu locytes (promyelocytes, myelocytes and metamyelocytes) > 1% indicates that a LEFT SHIFT is Present. Laboratory - Chemistry and C hemistry - challengeOrdered By: Tiffani Ansari on 04-26-2025 Glucose Ql (U) Negative [facility] - UrinalysisOrder ed By: Tiffani Ansari on 04-26-2025 Protein Ql (U) Negative [facility] MCV (mean corpuscular volume ) determinationOrdered By: Nori Lomeli on 04-26-2025 MCV (RBC) [Entitic vol] 87.7 fL 81-99 [facility] Mean corpuscular hemoglobin (MCH) determinationOrdered By: Nori Lomeli on 04-26-2025 MCH (RBC) [Entitic mass] 30.0 pg 27.0-32.0 [facility] Mean corpuscular hemoglobin concentration (MCHC) determinationOrdered By: Nori Lomeli on 04-26-2025 MCHC (RBC) [Mass/Vol] 34.2 g/dL 32-36 [facility] Mean platelet volume determi nationOrdered By: Nori Lomeli on 04-26-2025 Platelet mean volume (Bld) [Entitic vol] 10.4 fL 6.2-12.0 [facility] Monocyte percentageOrdered B y: Nori Lomeli on 04-26-2025 Monocytes/100 WBC (Bld) 4.8 % 0-10 [facility] Neutrophil percentageOrdered By: Nori Lomeli on 04-26-2025 Neutrophils/100 WBC (Bld) 78.7 % High 47-70 [facility] No Panel InformationOrdered By: Nori Lomeli on 04-26-2025 HIV (1&2) Antibody Non-Reactive Nonreactive [facility] Comment on above: Non-ReactiveReactive Repeatedly reactive samples must be confirmed according to CDC recommended confirmatory algorithms. The subresults for either HIVAG or AHIV can be used as an aid in the selection of the confirmation algorithm for reactive samples.Send out specimens with Reactive results to [facility] for confirmation.Order the HIV antibody detection and differentiation: #[id number] Nucleated red blood cell per centageOrdered By: Nori Lomeli on 04-26-2025 Nucleated RBC/100 WBC (Bld) [Ratio] 0 % 0-5 [facility] Bench Grinder Office Visit Reporton 04-26-2025 Bench Grinder Office Visit Report [facility] [address], [address] [place] [address] OFFICE VISIT Date of Service: 04/26/25 MR#: [id number] Acct: [id number] Name: NITZA PASTRANA Rep #: [id number] : 1980 Provider: Dr. Tiffani amor MD Age/Sex: 44/F Location: [facility] [place] Status: Signed Intake Vital Signs 02/15/25 13:08 04/14/25 15:33 04/26/25 10:18 Height 5 ft 4 in 5 ft 4 in 5 ft 4 in Weight: 231 lb 6 oz BMI 39.6 BP 126/83 H Intake Visit Reasons: 28 wk ob/glucose Video Surveillance Technician Required: No Is patient in pain?: No Allergies No Known Allergies Allergy (Verified 04/26/25 10:20) Medications ???Medication ???Instructions ???Recorded ???Confirmed ???Type chromium 1,000 mcg tablet See Rx Instructions PO QDAY 04/26/25 History multivit-min no.71-iron fum 28 cap PO 01/14/25 04/26/25 History mg-folate no.1 1 mg-dha 300 mg capsule (PNV-Zwolle) ondansetron HCl 4 mg tablet 4 mg PO Q6H PRN nausea and 01/17/ 5 04/26/25 Rx vomiting #60 tabs Last Menstrual Period: 10/15/24 Zika: Zika virus screening: Negative : No PFSH PFSH Medical History PCOS (polycystic ovarian syndrome) demise before 20 weeks with retention of fetus Retained placenta Gestational diabetes Surgical History H/O dilation and curettage History of surgery Family History Mother Cancer, Onset Age: 65 Leukemia- chronic Sister Cancer, Onset Age: 17 Lymphoma x2 Social History adopted: No household members: spouse and children housing: house number of children: 5 current occupational status: employed and unemployed current occupation: [employer] current occupational exposures/hazards: No pets and animals: Yes (chickens, cows) pets and animals: farm animals history of recent travel: No sexually active: Yes Smoking Status: Never smoker alcohol intake: never substance use type: does not use diet: diabetic well-balanced diet: daily or most days caffeine: No eating out: rarely or never during the past year weight has: remained stable what type of physical activity do you participate in: walking frequency: daily duration: < 15 minutes/day song/sikh: Confucianism seatbelt use: sometimes do you feel safe at home: Yes additional social history: - Jomar Singh History 6 Elective abortions Hx Para 3 Spontaneous abortions 2 Hx # Term Pregnancies Ectopic pregnancies Hx # Pregnancies Multiple births # of living children 3 Past Pregnancies Del. Date Name GA/Weeks Outcome Route Bth Weight Infant Gen Labor Lgth Anesthesia Del Locatn Provider FOB Unknown 10/2014 9 spontaneous Unknown adopted Oly (20yo) Unknown adopted Sohail(13yo) 12/13/16 Jose Juan Hadley 40 live - full term 7# Male none Henrik Carpenter Jomar 07/04/19 Pérez 40 live - full term 9# Male Home Jomar 08/14/21 Sina 38 live - full term 8# Male Home Jomar 08/10/24 [facility] 19 still Male none [facility] Delivery Date: Last Updated by: Sonya Garzon C Delivery Date: 12/13/16 Last Updated by: Sonya Courtney IOL post date Delivery Date: 07/04/19 Last Updated by: Sonya Courtney PUPS Delivery Date: 08/10/24 Last Updated by: Terra Bains, RN See problem list for complications, and ? diabetes, anora testing sent, D and C done for retained placenta HPI 28 wk ob/glucose Details: NITZA PASTRANA is a 44 year old who presents for routine OB visit. OB Visit DC Calculator Estimated Delivery Date Method Current WG Current Estimate 07/22/25 LMP (Certain) 27w 4d Expected Delivery Route/Plan Labor Preferences- CB/BF classes: [] labor support person: [] labor intervention preferences: [] pain management options preferred: [] cut cord/dad catch: [] : [] PP control planned: [] discussed possible routes of delivery and associated risks: [] special requests: [] Specific Issue/Plans Covid status: [] Flu vaccine: [] Tdap vaccine:declined Rhogam: [] LARC form signed: [] Problem list reviewed and updated with the most current plan of care details and appropriate orders placed. Relevant counseling for the gestational age provided. Continue routine care and follow up unless otherwise noted in visit notes/problem list details Initial Weight: 230 lb Date -???-???-???-???-?? ?-???-???-???-???-? ??-???-???- EGA Weight BP Urine Prot -???-???-???-???-?? ?-???-???-???-???-? ??-???-???- Glucose FHR FuHt Pres Dilation (more content not included)... Normal [facility] Platelet countOrdered By: Luis Felipe Lomeli on 04-26-2025 Platelets (Bld) [#/Vol] 295 10*3/uL 150-450 [facility] RBC Auto (Bld) [#/Vol]Ordere d By: Nori Lomeli on 04-26-2025 RBC (Bld) [#/Vol] 3.97 10*6/uL Low 4.2-5.4 [facility] Syphilis Antibodieson 2024 Syphilis Abs Non-Reactive Normal Nonreactive [facility] Comment on above: Performed By: #### L 100.0100, BTS, L3890.6006, L501.0250, L509.8002 #### [facility] [address] [place], [place], [id number] Type AND Screenon 04-26-2025 Ab SCREEN GEL Negative Normal [facility] Comment on above: Order Comment: PN Performed By: #### L 100.0100, BTS, L3890.6006, L501.0250, L509.8002 #### [facility] [address] [place], [address] White blood cell (WBC) count Ordered By: Nori Lomeli on 04-26-2025 WBC (Bld) [#/Vol] 9.6 10*3/uL 4.4-11.0 [facility] - Chemistry and C hemistry - challengeOrdered By: Nori Lomeli on 04-14-2025 Glucose Ql (U) Negative [facility] - UrinalysisOrder ed By: Nori Lomeli on 04-14-2025 Protein Ql (U) Negative [facility] Bench Grinder Office Visit Reporton 04-14-2025 Bench Grinder Office Visit Report [facility] [address], [address] [place] [address] OFFICE VISIT Date of Service: 04/14/25 MR#: [id number] Acct: [id number] Name: NITZA PASTRANA Rep #: [id number] : 1980 Provider: ROSEMARY Castillo ams Age/Sex: 44/F Location: [facility] [place] Status: Signed Intake Vital Signs 02/15/25 13:08 03/09/25 13:51 04/14/25 15:33 Height 5 ft 4 in 5 ft 4 in 5 ft 4 in Weight: 232 lb 6 oz BMI 39.9 BP 116/69 Intake Visit Reasons: 25 wk ob Chief Complaint: 25wk ob Video Surveillance Technician Required: No Is patient in pain?: No Allergies No Known Allergies Allergy (Verified 04/14/25 15:32) Medications ???Medication ???Instructions ???Recorded ???Confirmed ???Type chromium 1,000 mcg tablet See Rx Instructions PO QDAY 04/14/25 History multivit-min no.71-iron fum 28 cap PO 01/14/25 04/14/25 History mg-folate no.1 1 mg-dha 300 mg capsule (PNV-Zwolle) ondansetron HCl 4 mg tablet 4 mg PO Q6H PRN nausea and 01/17/2 5 04/14/25 Rx vomiting #60 tabs Last Menstrual Period: 10/15/24 : No PFSH PFSH Medical History PCOS (polycystic ovarian syndrome) demise before 20 weeks with retention of fetus Retained placenta Gestational diabetes Surgical History H/O dilation and curettage History of surgery Family History Mother Cancer, Onset Age: 65 Leukemia- chronic Sister Cancer, Onset Age: 17 Lymphoma x2 Social History adopted: No household members: spouse and children housing: house number of children: 5 current occupational status: employed and unemployed current occupation: [employer] current occupational exposures/hazards: No pets and animals: Yes (chickens, cows) pets and animals: farm animals history of recent travel: No sexually active: Yes Smoking Status: Never smoker alcohol intake: never substance use type: does not use diet: diabetic well-balanced diet: daily or most days caffeine: No eating out: rarely or never during the past year weight has: remained stable what type of physical activity do you participate in: walking frequency: daily duration: < 15 minutes/day song/sikh: Confucianism seatbelt use: sometimes do you feel safe at home: Yes additional social history: - Jomar Singh History 6 Elective abortions Hx Para 3 Spontaneous abortions 2 Hx # Term Pregnancies Ectopic pregnancies Hx # Pregnancies Multiple births # of living children 3 Past Pregnancies Del. Date Name GA/Weeks Outcome Route Bth Weight Gen Labor Lgth Anesthesia Del Locatn Provider FOB Unknown 10/2014 9 spontaneous Unknown adopted Oly (20yo) Unknown adopted Sohail(13yo) 12/13/16 Jose Juan Hadley 40 live - full term 7# Male none Henrik Hadley 07/04/19 Pérez 40 live - full term 9# Male Home Jomar 08/14/21 Sina 38 live - full term 8# Male Home Jomar 08/10/24 [facility] 19 still Male none [facility] SM Delivery Date: Last Updated by: Sonya Garzon C Delivery Date: 12/13/16 Last Updated by: Sonya Courtney IOL post date Delivery Date: 07/04/19 Last Updated by: Sonya Courtney PUPS Delivery Date: 08/10/24 Last Updated by: Terra Bains, RN See problem list for complications, and ? diabetes, anora testing sent, D and C done for retained placenta HPI 25 wk ob Details: NITZA PASTRANA is a 44 year old who presents for routine OB visit. OB Visit DC Calculator Estimated Delivery Date Method Current WG Current Estimate 07/22/25 LMP (Certain) 25w 6d Expected Delivery Route/Plan Labor Preferences- CB/BF classes: [] labor support person: [] labor intervention preferences: [] pain management options preferred: [] cut cord/dad catch: [] : [] PP control planned: [] discussed possible routes of delivery and associated risks: [] special requests: [] Specific Issue/Plans Covid status: [] Flu vaccine: [] Tdap vaccine: [] Rhogam: [] LARC form signed: [] Problem list reviewed and updated with the most current plan of care details and appropriate orders placed. Relevant counseling for the gestational age provided. Continue routine care and follow up unless otherwise noted in visit notes/problem list details Initial Weight: Not Recorded Date -???-???-???-???-?? ?-???-???-???-???-? ??-???-???- EGA Weight BP Urine Prot -???-???-???-???-?? ?-???-???-???-???-? ??-???-???- Glucose FHR FuHt Pres Dilation -???-???-???-???-?? ?-???-???-???-???-? ??-???-???- (more content not included)... Normal [facility] - Chemistry and C hemistry - challengeOrdered By: Beti Moore on 03-09-2025 Glucose Ql (U) Negative [facility] - UrinalysisOrder ed By: Beti Moore on 03-09-2025 Protein Ql (U) Negative [facility] OB Anatomy w/ Transvaginalon 03-09-2025 OB Anatomy w/ Transvaginal [facility] [address] [place] [id number] OB Anatomy w/ Transvaginal MR#: [id number] Acct: [id number] Name: NITZA PASTRANA Rep #: [id number] : 1980 F 44 From: Caleb Bolaños DO PCP: Lionel Cruz PA-C Status: REG CLI Study: OB Anatomy w/ Transvaginal Date of Exam: 03/09 Exam# [id number] Ordering Dr: Beti Moore COLD ROLLING MACHINE SETTER COLD ROLLING MACHINE SETTER -C PROCEDURE: OB ANATOMY W/ TRANSVAGINAL 03/09/2025 REASON FOR EXAM: ANATOMY TECHNIQUE: High resolution obstetric ultrasound performed using a 2D transducer. Standard views obtained, including biometry, anatomy survey, and Doppler studies. FINDINGS Number: 1 Position: Variable between breech and transverse to the right Placental Position: Anterior, low-lying, 0.5 cm from the cervix. Placental Abnormalities: Placenta grade 0 Cervical length: 3.6 cm with closed cervical os DIMENSIONS: Biparietal Diameter: 5.02 cm/21 weeks, 2 days Head Circumference: 19.24 cm/21 weeks, 3 days Abdominal Circumference: 17.14 cm/22 weeks, 1 day Femur Length: 3.36 cm/20 weeks, 4 days ESTIMATED WEIGHT: 423 g +/-64 g ESTIMATED WEIGHT PERCENTILE (24+ weeks): 81 % ESTIMATED GESTATIONAL AGE: Baseline: 20 weeks, 5 days by LMP By Ultrasound: 21 weeks, 0 days ESTIMATED DATE OF DELIVERY: Baseline: 07 22 25 By Ultrasound: 07 20 25 BIOPHYSICAL ASSESSMENT: Amniotic Fluid Volume: 6.2 cm largest vertical pocket. Amniotic Fluid Index: Not calculated (8-24 cm normal range) Cardiac Motion: 164 (average) Trunk and Limb Motion: Present. MATERNAL ANATOMY: Adnexa: Neither maternal ovary is successfully identified. Cervical Length (if measured): 3.6 cm ANATOMY: Spine: Visualized Cranium: Visualized Cerebellum: Visualized 1.93 cm Cisterna Magna: Visualized 0.62 cm Cavum Septum Pellucidi: Visualized Lateral Ventricles: Visualized. 0.86 cm Choroid Plexus: Visualized Midline Falx: Nuchal Fold: Upper Lip: Visualized Heart: Four-chamber heart visualized Ventricular Outflow Tracts: Stomach: Visualized Kidneys: Visualized Bladder: Visualized Umbilical Cord: Visualized cord insertion three-vessel cord visualized Extremities: Visualized US/OB Anatomy w/ Transvaginal IMPRESSION: Live intrauterine gestation 21 weeks, 0 days and estimated due date of 07/20/2020 Visualization of midline falx, nuchal fold and ventricular outflow tracts not recorded No gross anatomic defects. Estimated weight percentile: 81%. Reading Location: [facility] CC: KALYANI Moore; KALPANA Cruz Bow Tacker: Signed Normal [facility] Bench Grinder Office Visit Reporton 03-09-2025 Bench Grinder Office Visit Report [facility]'s [address], [address] [place] [address] OFFICE VISIT Date of Service: 03/09/25 MR#: [id number] Acct: [id number] Name: NITZA PASTRANA Rep #: [id number] : 1980 Provider: KALYANI corrigan Age/Sex: 44/F [place] [facility] Status: Signed Intake Vital Signs 01/17/25 10:12 02/15/25 13:08 03/09/25 13:51 Height 5 ft 4 in 5 ft 4 in 5 ft 4 in Weight: 233 lb 4 oz BMI 40.0 BP 134/82 H Intake Visit Reasons: 21 wk ob Chief Complaint: 21 Week OB Video Surveillance Technician Required: No Is patient in pain?: No Allergies No Known Allergies Allergy (Verified 03/09/25 13:50) Medications ???Medication ???Instructions ???Recorded ???Confirmed ???Type chromium 1,000 mcg tablet See Rx Instructions PO QDAY 03/09/25 History multivit-min no.71-iron fum 28 cap PO 01/14/25 03/09/25 History mg-folate no.1 1 mg-dha 300 mg capsule (PNV-Zwolle) ondansetron HCl 4 mg tablet 4 mg PO Q6H PRN nausea and 5 03/09/25 Rx vomiting #60 tabs Last Menstrual Period: 10/15/24 Zika: Zika virus screening: Negative : No PFSH PFSH Medical History PCOS (polycystic ovarian syndrome) demise before 20 weeks with retention of fetus Retained placenta Gestational diabetes Surgical History H/O dilation and curettage History of surgery Family History Mother Cancer, Onset Age: 65 Leukemia- chronic Sister Cancer, Onset Age: 17 Lymphoma x2 Social History adopted: No household members: spouse and children housing: house number of children: 5 current occupational status: employed and unemployed current occupation: [employer] current occupational exposures/hazards: No pets and animals: Yes (chickens, cows) pets and animals: farm animals history of recent travel: No sexually active: Yes Smoking Status: Never smoker alcohol intake: never substance use type: does not use diet: diabetic well-balanced diet: daily or most days caffeine: No eating out: rarely or never during the past year weight has: remained stable what type of physical activity do you participate in: walking frequency: daily duration: < 15 minutes/day song/sikh: Confucianism seatbelt use: sometimes do you feel safe at home: Yes additional social history: - Jomar Singh History 6 Elective abortions Hx Para 3 Spontaneous abortions 2 Hx # Term Pregnancies Ectopic pregnancies Hx # Pregnancies Multiple births # of living children 3 Past Pregnancies Del. Date Name GA/Weeks Outcome Route Bth Weight Infant Gen Labor Lgth Anesthesia Del Locatn Provider FOB Unknown 10/2014 9 spontaneous Unknown adopted Oly (20yo) Unknown adopted Sohail(13yo) 12/13/16 Jose Juan Hadley 40 live - full term 7# Male none Henrik Carpenter Jomar 07/04/19 Pérez 40 live - full term 9# Male Home Jomar 08/14/21 Sina 38 live - full term 8# Male Home Jomar 08/10/24 [facility] 19 still Male none [facility] SM Delivery Date: Last Updated by: Sonya Garzon C Delivery Date: 12/13/16 Last Updated by: Sonya Courtney IOL post date Delivery Date: 07/04/19 Last Updated by: Sonya Courtney PUPS Delivery Date: 08/10/24 Last Updated by: Terra Bains, RN See problem list for complications, and ? diabetes, anora testing sent, D and C done for retained placenta HPI 21 wk ob Details: NITZA PASTRANA is a 44 year old who presents for routine OB visit. OB Visit DC Calculator Estimated Delivery Date Method Current WG Current Estimate 07/22/25 LMP (Certain) 20w 5d Expected Delivery Route/Plan Labor Preferences- CB/BF classes: [] labor support person: [] labor intervention preferences: [] pain management options preferred: [] cut cord/dad catch: [] : [] PP control planned: [] discussed possible routes of delivery and associated risks: [] special requests: [] Specific Issue/Plans Covid status: [] Flu vaccine: [] Tdap vaccine: [] Rhogam: [] LARC form signed: [] Problem list reviewed and updated with the most current plan of care details and appropriate orders placed. Relevant counseling for the gestational age provided. Continue routine care and follow up unless otherwise noted in visit notes/problem list details Initial Weight: Not Recorded Date -???-???-???-???-?? ?-???-???-???-???-? ??-???-???- EGA Weight BP Urine Prot -???-???-???-???-?? ?-???-???-???-???-? ??-???-???- Glucose FHR F (more content not included)... Normal [facility] - Chemistry and C hemistry - challengeOrdered By: Beti Moore on 02-15-2025 Glucose Ql (U) Negative [facility] - UrinalysisOrder ed By: Beti Moore on 02-15-2025 Protein Ql (U) Negative [facility] Bench Grinder Office Visit Reporton 02-15-2025 Bench Grinder Office Visit Report [facility]'s [address], [address] [place] [address] OFFICE VISIT Date of Service: 02/15/25 MR#: [id number] Acct: [id number] Name: NITZA PASTRANA Rep #: [id number] : 1980 Provider: KALYANI corrigan Age/Sex: 44/F Location: [facility] [place] Status: Signed Intake Vital Signs 01/17/25 10:12 02/15/25 13:08 Height 5 ft 4 in 5 ft 4 in Weight: 233 lb 2 oz BMI 40.0 BP 132/82 H Intake Visit Reasons: 17 wk ob Chief Complaint: 17 Week OB Video Surveillance Technician Required: No Is patient in pain?: No Allergies No Known Allergies Allergy (Verified 02/15/25 13:09) Medications ???Medication ???Instructions ???Recorded ???Confirmed ???Type chromium 1,000 mcg tablet See Rx Instructions PO QDAY 02/15/25 History multivit-min no.71-iron fum 28 cap PO 01/14/25 02/15/25 History mg-folate no.1 1 mg-dha 300 mg capsule (PNV-Zwolle) ondansetron HCl 4 mg tablet 4 mg PO Q6H PRN nausea and 5 02/15/25 Rx vomiting #60 tabs Last Menstrual Period: 10/15/24 Zika: Zika virus screening: Negative : No PFSH PFSH Medical History PCOS (polycystic ovarian syndrome) demise before 20 weeks with retention of fetus Retained placenta Gestational diabetes Surgical History H/O dilation and curettage History of surgery Family History Mother Cancer, Onset Age: 65 Leukemia- chronic Sister Cancer, Onset Age: 17 Lymphoma x2 Social History adopted: No household members: spouse and children housing: house number of children: 5 current occupational status: employed and unemployed current occupation: [employer] current occupational exposures/hazards: No pets and animals: Yes (chickens, cows) pets and animals: farm animals history of recent travel: No sexually active: Yes Smoking Status: Never smoker alcohol intake: never substance use type: does not use diet: diabetic well-balanced diet: daily or most days caffeine: No eating out: rarely or never during the past year weight has: remained stable what type of physical activity do you participate in: walking frequency: daily duration: < 15 minutes/day song/sikh: Confucianism seatbelt use: sometimes do you feel safe at home: Yes additional social history: - Jomar Singh History 6 Elective abortions Hx Para 3 Spontaneous abortions 2 Hx # Term Pregnancies Ectopic pregnancies Hx # Pregnancies Multiple births # of living children 3 Past Pregnancies Del. Date Name GA/Weeks Outcome Route Bth Weight Gen Labor Lgth Anesthesia Del Locatn Provider FOB Unknown 10/2014 9 spontaneous Unknown adopted Oly (20yo) Unknown adopted Sohail(13yo) 12/13/16 Jose Juan Hadley 40 live - full term 7# Male none Henrik Hadley 07/04/19 Pérez 40 live - full term 9# Male Home Jomar 08/14/21 Sina 38 live - full term 8# Male Home Jomar 08/10/24 [facility] 19 still Male none [facility] SM Delivery Date: Last Updated by: Sonya Garzon C Delivery Date: 12/13/16 Last Updated by: Sonya Courtney IOL post date Delivery Date: 07/04/19 Last Updated by: Sonya Courtney PUPS Delivery Date: 08/10/24 Last Updated by: Terra Bains, RN See problem list for complications, and ? diabetes, anora testing sent, D and C done for retained placenta HPI 17 wk ob Details: NITZA PASTRANA is a 44 year old who presents for routine OB visit. OB Visit DC Calculator Estimated Delivery Date Method Current WG Current Estimate 07/22/25 LMP (Certain) 17w 4d Expected Delivery Route/Plan Labor Preferences- CB/BF classes: [] labor support person: [] labor intervention preferences: [] pain management options preferred: [] cut cord/dad catch: [] : [] PP control planned: [] discussed possible routes of delivery and associated risks: [] special requests: [] Specific Issue/Plans Covid status: [] Flu vaccine: [] Tdap vaccine: [] Rhogam: [] LARC form signed: [] Problem list reviewed and updated with the most current plan of care details and appropriate orders placed. Relevant counseling for the gestational age provided. Continue routine care and follow up unless otherwise noted in visit notes/problem list details Initial Weight: Not Recorded Date -???-???-???-???-?? ?-???-???-???-???-? ??-???-???- EGA Weight BP Urine Prot -???-???-???-???-?? ?-???-???-???-???-? ??-???-???- Glucose FHR FuHt Pres Dilation -???-?? (more content not included)... Normal [facility] Protein+Creatinine Ratio,Uri neon 02-15-2025 PROT:CRE RATIO 74 mg/g CRE Normal 0-200 [facility] Comment on above: Performed By: #### L 501.0900 #### [facility] [address] [place], [address] Protein (U) [Mass/Vol] 7.4 mg/dL Normal 0.0-12.0 [facility] Comment on above: Performed By: #### L 501.0900 #### [facility] [address] [place], [address] UR CREAT 99.70 mg/dL Normal 28.00-217.00 [facility] Comment on above: Performed By: #### L 501.0900 #### [facility] [address] [place], [address] Random urine creatinine marlo urement (mass/volume)Ordered By: Beti Moore on 02-15-2025 Creatinine Unsp time (U) [Mass/Vol] 99.70 mg/dL 28.00-217.00 [facility] Urine protein measurement (m ass/volume)Ordered By: Beti Moore on 02-15-2025 Protein (U) [Mass/Vol] 7.4 mg/dL 0.0-12.0 [facility] Urine protein/creatinine mas s ratioOrdered By: Beti Moore on 02-15-2025 Protein/Creatinine (U) [Mass ratio] 74 mg/g CRE 0-200 [facility] PAP IG HPV APTIMA 16/18,45on 01-20-2025 ADEQ Comment Normal . [facility] Comment on above: Order Comment: Speci men Comment: [id number] Comment: Source.............CervixSpecimen Comment: LMP / Prev Treat...[id number] Comment: Other..............Specimen Comment: No. of containers..01 ThinPrep Vial Result Comment: Sati sfactory for evaluation. Endocervical and/or squamous metaplastic cells (endocervical component) are present. Performed By: #### L 100.0100, BTS, L3890.6006, L501.0250, L509.8002 #### [facility] [address] [place], [place], [id number] COMM . Normal . [facility] Comment on above: Order Comment: Speci men Comment: [id number] Comment: Source.............CervixSpecimen Comment: LMP / Prev Treat...[id number] Comment: Other..............Specimen Comment: No. of containers..01 ThinPrep Vial Performed By: #### L 100.0100, BTS, L3890.6006, L501.0250, L509.8002 #### [facility] [address] [place], [place], [id number] COMMENT Comment Normal . [facility] Comment on above: Order Comment: Speci men Comment: [id number] Comment: Source.............CervixSpecimen Comment: LMP / Prev Treat...[id number] Comment: Other..............Specimen Comment: No. of containers..01 ThinPrep Vial Result Comment: This liquid based ThinPrep(R) pap test was screened with the use of an image guided system. Performed By: #### L 100.0100, BTS, L3890.6006, L501.0250, L509.8002 #### [facility] [address] [place], [place], [id number] DIAG Comment Normal . [facility] Comment on above: Order Comment: Speci men Comment: [id number] Comment: Source.............CervixSpecimen Comment: LMP / Prev Treat...[id number] Comment: Other..............Specimen Comment: No. of containers..01 ThinPrep Vial Result Comment: NEGA TIVE FOR INTRAEPITHELIAL LESION OR MALIGNANCY. Performed By: #### L 100.0100, BTS, L3890.6006, L501.0250, L509.8002 #### [facility] [address] [place], [place], [id number] HPV APTIMA, HR Negative Normal Negative [facility] Comment on above: Order Comment: Speci men Comment: [id number] Comment: Source.............CervixSpecimen Comment: LMP / Prev Treat...[id number] Comment: Other..............Specimen Comment: No. of containers..01 ThinPrep Vial Result Comment: This nucleic acid amplification test detects fourteen high- risk HPV types (16,18,31,33,35,39,45,51,52,56,58,59,66,68) without differentiation. Performed By: #### L 100.0100, BTS, L3890.6006, L501.0250, L509.8002 #### [facility] [address] [place], [place], [address] HPV Holli Rfx Comment Normal . [facility] Comment on above: Order Comment: Speci men Comment: [id number] Comment: Source.............CervixSpecimen Comment: LMP / Prev Treat...[id number] Comment: Other..............Specimen Comment: No. of containers..01 ThinPrep Vial Result Comment: Crit eria not met, HPV Genotype not performed. Performed at: - [facility] [id number] [employer]: Analilia Amaro MD, Phone: [phone] Performed at: = - [facility] [id number] [employer]: Analilia Amaro MD, Phone: [phone] Performed By: #### L 100.0100, BTS, L3890.6006, L501.0250, L509.8002 #### [facility] [address] [place], [place], [id number] PAPSMR Comment Normal . [facility] Comment on above: Order Comment: Speci men Comment: [id number] Comment: Source.............CervixSpecimen Comment: LMP / Prev Treat...[id number] Comment: Other..............Specimen Comment: No. of containers..01 ThinPrep Vial Result Comment: The Pap smear is a screening test designed to aid in the detection of premalignant and malignant conditions of the uterine cervix. It is not a diagnostic procedure and should not be used as the sole means of detecting cervical cancer. Both false-positive and false-negative reports do occur. Performed By: #### L 100.0100, BTS, L3890.6006, L501.0250, L509.8002 #### [facility] [address] [place], [address] PERFORM Comment Normal . [facility] Comment on above: Order Comment: Speci men Comment: [id number] Comment: Source.............CervixSpecimen Comment: LMP / Prev Treat...[id number] Comment: Other..............Specimen Comment: No. of containers..01 ThinPrep Vial Result Comment: Car Dooley, Chip Drier Performed By: #### L 100.0100, BTS, L3890.6006, L501.0250, L509.8002 #### [facility] [address] [place], [address] Chlamydia/GC ODALYS aptimaon CHLAMY,NUC ACID Negative Normal Negative [facility] Comment on above: Performed By: #### L 100.0100, BTS, L3890.6006, L501.0250, L509.8002 #### [facility] [address] [place], [address] GC BY NUC ACID Negative Normal Negative [facility] Comment on above: Result Comment: Perf ormed at: =G - [facility] [id number] [employer]: Analilia Amaro MD, Phone: [phone] Performed By: #### L 100.0100, BTS, L3890.6006, L501.0250, L509.8002 #### [facility] [address] [place], [address] Urine Cultureon 01-19-2025 URC Mixed Gram Pos Gram Neg Org [place] Count 11,000-25,000 MIXC Mixed contaminants. Submit a new specimen if indicated. Normal [facility] Comment on above: Performed By: #### L 100.0100, BTS, L3890.6006, L501.0250, L509.8002 #### [facility] [address] [place], [place], [id number] Absolute lymphocyte countOrd ered By: Natalie Suleman on 01-17-2025 Lymphocytes Auto (Unsp spec) [#/Vol] 1.47 10*3/uL 0.83-4.51 [facility] Absolute neutrophil countOrd ered By: Natalie Suleman on 01-17-2025 Neutrophils (Bld) [#/Vol] 6.7 10*3/uL 2.0-7.7 [facility] Automated lymphocyte count a s percentage of total leukocytesOrdered By: Natalie Suleman on 01-17-2025 Lymphocytes/100 WBC Auto (Unsp spec) 17.0 % Low 19-41 [facility] Basophil percentageOrdered B y: Natalie Suleman on 01-17-2025 Basophils/100 WBC (Bld) 0.3 % 0-1 [facility] C. trachomatis rRNA ODALYS+prob e Ql (Unsp spec)Ordered By: Natalie Suleman on 01-17-2025 Chlamydia DNA (ODALYS) Negative Negative [facility] CBC W/Diff, Automatedon 01-04 Absolute Lymph 1.47 X10 3/uL Normal 0.83-4.51 [facility] Comment on above: Performed By: #### L 100.0100, L3890.6102, L501.9985, BTS, L3890.6301, L509.8002, L3890.6006, L509.4006 #### [facility] [address] [place], [address] Absolute Neut 6.7 X10 3/uL Normal 2.0-7.7 [facility] Comment on above: Performed By: #### L 100.0100, L3890.6102, L501.9985, BTS, L3890.6301, L509.8002, L3890.6006, L509.4006 #### [facility] [address] [place], [address] Basophils/100 WBC (Bld) 0.3 % Normal 0-1 [facility] Comment on above: Performed By: #### L 100.0100, L3890.6102, L501.9985, BTS, L3890.6301, L509.8002, L3890.6006, L509.4006 #### [facility] [address] [place], [address] Eosinophils/100 WBC (Bld) 0.1 % Normal 0-5 [facility] Comment on above: Performed By: #### L 100.0100, L3890.6102, L501.9985, BTS, L3890.6301, L509.8002, L3890.6006, L509.4006 #### [facility] [address] [place], [address] Erythrocyte distribution width (RBC) [Ratio] 14.9 % High 11.6-14.6 [facility] Comment on above: Performed By: #### L 100.0100, L3890.6102, L501.9985, BTS, L3890.6301, L509.8002, L3890.6006, L509.4006 #### [facility] [address] [place], [address] Hematocrit (Bld) [Volume fraction] 38.9 % Normal 37-47 [facility] Comment on above: Performed By: #### L 100.0100, L3890.6102, L501.9985, BTS, L3890.6301, L509.8002, L3890.6006, L509.4006 #### [facility] [address] [place], [address] Hemoglobin (Bld) [Mass/Vol] 13.2 g/dL Normal 12.0-15.0 [facility] Comment on above: Performed By: #### L 100.0100, L3890.6102, L501.9985, BTS, L3890.6301, L509.8002, L3890.6006, L509.4006 #### [facility] [address] [place] [place], [address] IG% 0.200 Normal 0.0-0.9 [facility] Comment on above: Result Comment: IG% - Immature Granulocytes (promyelocytes, myelocytes and metamyelocytes) > 1% indicates that a LEFT SHIFT is Present. Performed By: #### L 100.0100, L3890.6102, L501.9985, BTS, L3890.6301, L509.8002, L3890.6006, L509.4006 #### [facility] [address] [place], [address] Lymphocytes/100 WBC (Bld) 17.0 % Low 19-41 [facility] Comment on above: Performed By: #### L 100.0100, L3890.6102, L501.9985, BTS, L3890.6301, L509.8002, L3890.6006, L509.4006 #### [facility] [address] [place], [address] MCH (RBC) [Entitic mass] 28.5 pg Normal 27.0-32.0 [facility] Comment on above: Performed By: #### L 100.0100, L3890.6102, L501.9985, BTS, L3890.6301, L509.8002, L3890.6006, L509.4006 #### [facility] [address] [place], [address] MCHC (RBC) [Mass/Vol] 33.9 g/dL Normal 32-36 [facility] Comment on above: Performed By: #### L 100.0100, L3890.6102, L501.9985, BTS, L3890.6301, L509.8002, L3890.6006, L509.4006 #### [facility] [address] [place], [address] MCV (RBC) [Entitic vol] 84.0 fL Normal 81-99 [facility] Comment on above: Performed By: #### L 100.0100, L3890.6102, L501.9985, BTS, L3890.6301, L509.8002, L3890.6006, L509.4006 #### [facility] [address] [place], [address] Monocytes/100 WBC (Bld) 5.1 % Normal 0-10 [facility] Comment on above: Performed By: #### L 100.0100, L3890.6102, L501.9985, BTS, L3890.6301, L509.8002, L3890.6006, L509.4006 #### [facility] [address] [place], [address] Neutrophils/100 WBC (Bld) 77.3 % High 47-70 [facility] Comment on above: Performed By: #### L 100.0100, L3890.6102, L501.9985, BTS, L3890.6301, L509.8002, L3890.6006, L509.4006 #### [facility] [address] [place], [address] Nucleated RBC (Bld) [#/Vol] 0 10*3/uL Normal 0-5 [facility] Comment on above: Performed By: #### L 100.0100, L3890.6102, L501.9985, BTS, L3890.6301, L509.8002, L3890.6006, L509.4006 #### [facility] [address] [place], [address] Platelet mean volume (Bld) [Entitic vol] 10.0 fL Normal 6.2-12.0 [facility] Comment on above: Performed By: #### L 100.0100, L3890.6102, L501.9985, BTS, L3890.6301, L509.8002, L3890.6006, L509.4006 #### [facility] [address] [place], [address] Platelets (Bld) [#/Vol] 320 10*3/uL Normal 150-450 [facility] Comment on above: Performed By: #### L 100.0100, L3890.6102, L501.9985, BTS, L3890.6301, L509.8002, L3890.6006, L509.4006 #### [facility] [address] [place], [address] RBC (Bld) [#/Vol] 4.63 10*6/uL Normal 4.2-5.4 [facility] Comment on above: Performed By: #### L 100.0100, L3890.6102, L501.9985, BTS, L3890.6301, L509.8002, L3890.6006, L509.4006 #### [facility] [address] [place], [address] RDW SD 45.2 fl High 35.1-43.9 [facility] Comment on above: Performed By: #### L 100.0100, L3890.6102, L501.9985, BTS, L3890.6301, L509.8002, L3890.6006, L509.4006 #### [facility] [address] [place], [address] WBC (Bld) [#/Vol] 8.6 10*3/uL Normal 4.4-11.0 [facility] Comment on above: Performed By: #### L 100.0100, L3890.6102, L501.9985, BTS, L3890.6301, L509.8002, L3890.6006, L509.4006 #### [facility] [address] [place], [address] Cervical or vaginal specimen microscopic examination by liquid based cytology (reportOrdered By: Natalie Shell on 01-17-2025 Cytology report Cyto stain.thin prep Doc (Cvx/Vag) Comment . [facility] Comment on above: Criteria not met, HP V Genotype not performed.Performed at: [facility] [id number] Director: Analilia Amaro MD, Phone: [phone] at: =[facility] [id number] Director: Analilia Amaro MD, Phone: [phone] Cervical or vagninal specime n microscopic examination by cytology stain (reported asOrdered By: Natalie Shell on 01-17-2025 Cytology report Cyto stain Doc (Cvx/Vag) Comment . [facility] Comment on above: The Pap smear is a s creening test designed to aid in thedetection of premalignant and malignant conditions of theuterine cervix. It is not a diagnostic procedure andshould not be used as the sole means of detecting cervicalcancer. Both false-positive and false-negative reports dooccur. Chlamydia trachomatis rRNA d etection by probe and target amplification methodOrdered By: Natalie Shell on 01-17-2025 C. trachomatis rRNA ODALYS+probe Ql (Unsp spec) Negative Negative [facility] Detection in cervical specim en of any of human papilloma virus (HPV) 16, 18, 31, 33,Ordered By: Natalie Shell on 01-17-2025 HPV 16+18+31+33+35+39+45+51+5 2+56+58+59+66+68 DNA Probe+sig amp Ql (Cvx) Negative Negative [facility] Comment on above: This nucleic acid am plification test detects fourteen high-risk HPV types (16,18,31,33,35,39,45,51,52,56,58,59,66,68)without differentiation. Eosinophil percentageOrdered By: Nataliejoslyn Shell on 01-17-2025 Eosinophils/100 WBC (Bld) 0.1 % 0-5 [facility] Erythrocyte distribution wid th (RBC) [Ratio]Ordered By: Nataliekaylen Shell on 01-17-2025 Erythrocyte distribution width (RBC) [Entitic vol] 45.2 fL High 35.1-43.9 [facility] Erythrocyte distribution wid th ratioOrdered By: [facility] Suleman on 01-17-2025 Erythrocyte distribution width (RBC) [Ratio] 14.9 % High 11.6-14.6 [facility] Erythrocyte distribution wid th standard deviationOrdered By: [facility] Suleman on 01-17-2025 Erythrocyte distribution width (RBC) [Ratio] 45.2 fl High 35.1-43.9 [facility] HBV surface Ag Ql (S)Ordered By: [facility] on 01-17-2025 Hepatitis B Surface Antigen Non-Reactive Nonreactive [facility] Comment on above: Reactive: Presumptiv e evidence of HBV. Repeatedly reactive samples must be confirmed using a neutralization test (Ele[employer]ys HBsAg Confirmatory Test)Non-Reactive: HBsAg not detected; does not exclude the possibility of exposure to HBV HIVon 01-17-2025 HIV Non-Reactive Normal Nonreactive [facility] Comment on above: Result Comment: Non- Reactive Reactive Repeatedly reactive samples must be confirmed according to CDC recommended confirmatory algorithms. The subresults for either HIVAG or AHIV can be used as an aid in the selection of the confirmation algorithm for reactive samples. Send out specimens with Reactive results to [facility] for confirmation. Order the HIV antibody detection and differentiation: lc#[id number] Performed By: #### L 100.0100, BTS, L3890.6006, L501.0250, L509.8002 #### [facility] [address] [place], [address] Hematocrit Auto (Bld) [Volum e fraction]Ordered By: Natalie Shell on 01-17-2025 Hematocrit (Bld) [Volume fraction] 38.9 % 37-47 [facility] Hemoglobin A1con 01-17-2025 HbA1c (Bld) [Mass fraction] 5.3 % Normal <=5.6 [facility] Comment on above: Result Comment: Norm al < 5.7 % Prediabetic 5.7 - 6.4 % Diabetic >or= 6.5 % Please note range changes. Performed By: #### L 100.0100, L3890.6102, L501.9985, BTS, L3890.6301, L509.8002, L3890.6006, L509.4006 #### [facility] [address] [place], [place], [address] Hemoglobin A1c percentageOrd ered By: Natalie Shell on 01-17-2025 HbA1c (Bld) [Mass fraction] 5.3 % <5.7 [facility] Comment on above: Normal < 5.7 % Predi abetic 5.7 - 6.4 % Diabetic >or= 6.5 % Please note range changes. Hemoglobin measurementOrdere d By: Natalie Shell on 01-17-2025 Hemoglobin (Bld) [Mass/Vol] 13.2 g/dL 12.0-15.0 [facility] Hepatitis C Antibodyon 01-17 Hepatitis C Ab Non-Reactive Normal Nonreactive [facility] Comment on above: Result Comment: Reac tive: Presumptive evidence of antibodies to HCV. Follow CDC recommendations for supplemental testing. Non-Reactive: Antibodies to HCV were not detected; does not exclude the possibility of exposure to HCV Reactive Results are presumptive evidence of antibodies to HCV. Follow CDC recommendations for supplemental testing. Order confirmation testing: HCV Quant by PCR testing - HCVPCR #[id number] Non Reactive: < 0.8 Equivocal: >/= 0.8 to < 1.0 Reactive: >/= 1.0 The CDC requires that a reactive/equivocal HCV antibody result be sent out for confirmation. HCV Quant by PCR testing. Performed By: #### L 100.0100, BTS, L3890.6006, L501.0250, L509.8002 #### [facility] [address] [place], [place], [address] Hepatitis C antibodyOrdered By: Natalie Shell on 01-17-2025 Hepatitis C Antibody Non-Reactive Nonreactive [facility] Comment on above: Reactive: Presumptiv e evidence of antibodies to HCV. Follow CDC recommendations for supplemental testing.Non-Reactive: Antibodies to HCV were not detected; does not exclude the possibility of exposure to HCVReactive Results are presumptive evidence of antibodies to HCV. Follow CDC recommendations for supplemental testing.Order confirmation testing: HCV Quant by PCR testing - HCVPCR #[id number] Non Reactive: < 0.8 Equivocal: >/= 0.8 to < 1.0 Reactive: >/= 1.0The CDC requires that a reactive/equivocal HCV antibody result be sent out for confirmation. HCV Quant by PCR testing. Immature granulocytes/100 WB C Auto (Bld)Ordered By: Natalie Shell on 01-17-2025 Immature granulocytes/100 WBC (Bld) 0.200 % 0.0-0.9 [facility] Comment on above: IG% - Immature Granu locytes (promyelocytes, myelocytes and metamyelocytes) > 1% indicates that a LEFT SHIFT is Present. L3890.6102on 01-17-2025 HEP B Surf Ag Non-Reactive Normal Nonreactive [facility] Comment on above: Result Comment: Reac tive: Presumptive evidence of HBV. Repeatedly reactive samples must be confirmed using a neutralization test ([employer] HBsAg Confirmatory Test) Non-Reactive: HBsAg not detected; does not exclude the possibility of exposure to HBV Performed By: #### L 100.0100, BTS, L3890.6006, L501.0250, L509.8002 #### [facility] [address] [place], [place], [address] L509.4006on 01-17-2025 Rubella IgG Non-Reactive Normal Nonreactive [facility] Comment on above: Result Comment: Anti body Result: Interpretation Non-Reactive: Non-Immune Reactive: Immune The following results were obtained with the Elecsys Rubella IgG assay. Results from assays of other manufacturers cannot be used interchangeably. Performed By: #### L 100.0100, BTS, L3890.6006, L501.0250, L509.8002 #### [facility] [address] [place], [address] Laboratory - CytologyOrdered By: Natalie Shell on 01-17-2025 Textile Slitting Machine Operator Cyto stain Nom (Cvx/Vag) [ID] Comment . [facility] Comment on above: Jonelle Dooley Cyto technologist Laboratory - Microbiology an d Antimicrobial susceptibilityOrdered By: Natalie Shell on 01-17-2025 HBV surface Ag Ql (S) Non-Reactive Nonreactive [facility] Comment on above: Reactive: Presumptiv e evidence of HBV. Repeatedly reactive samples must be confirmed using a neutralization test ([employer] HBsAg Confirmatory Test)Non-Reactive: HBsAg not detected; does not exclude the possibility of exposure to HBV Laboratory - Miscellaneous t estsOrdered By: Natalie Shell on 01-17-2025 Service comment (Unsp spec) [Interp] . . [facility] Lymphocytes Auto (Unsp spec) [#/Vol]Ordered By: Natalie Shell on 01-17-2025 Lymphocytes (Bld) [#/Vol] 1.47 10*3/uL 0.83-4.5 1 [facility] Lymphocytes/100 WBC Auto (Un sp spec)Ordered By: Natalie Shell on 01-17-2025 Lymphocytes/100 WBC (Bld) 17.0 % Low 19-41 [facility] MCV (mean corpuscular volume ) determinationOrdered By: Natalie Shell on 01-17-2025 MCV (RBC) [Entitic vol] 84.0 fL 81-99 [facility] Mean corpuscular hemoglobin (MCH) determinationOrdered By: Natalie Shell on 01-17-2025 MCH (RBC) [Entitic mass] 28.5 pg 27.0-32.0 [facility] Mean corpuscular hemoglobin concentration (MCHC) determinationOrdered By: Natalie Shell on 01-17-2025 MCHC (RBC) [Mass/Vol] 33.9 g/dL 32-36 [facility] Mean platelet volume determi nationOrdered By: Natalie Shell on 01-17-2025 Platelet mean volume (Bld) [Entitic vol] 10.0 fL 6.2-12.0 [facility] Monocyte percentageOrdered B y: Natalie Shell on 01-17-2025 Monocytes/100 WBC (Bld) 5.1 % 0-10 [facility] Neisseria gonorrhoeae nuclei c acid detection by amplified probe techniqueOrdered By: Natalie Shell on 01-17-2025 N. gonorrhoeae DNA ODALYS+probe Ql (Unsp spec) Negative Negative [facility] Comment on above: Performed at: [address] [id number] Director: Analilia Amaro MD, Phone: [phone] Neutrophil percentageOrdered By: Natalie Shell on 01-17-2025 Neutrophils/100 WBC (Bld) 77.3 % High 47-70 [facility] No Panel InformationOrdered By: Natalie Shell on 01-17-2025 Pap Smear Specimen Adequacy Comment . [facility] Comment on above: Satisfactory for chrystal luation. Endocervical and/or squamous metaplasticcells (endocervical component) are present. HIV (1&2) Antibody Non-Reactive Nonreactive [facility] Comment on above: Non-ReactiveReactive Repeatedly reactive samples must be confirmed according to CDC recommended confirmatory algorithms. The subresults for either HIVAG or AHIV can be used as an aid in the selection of the confirmation algorithm for reactive samples.Send out specimens with Reactive results to [facility] for confirmation.Order the HIV antibody detection and differentiation: #[id number] Nucleated red blood cell per centageOrdered By: Natalie Shell on 01-17-2025 Nucleated RBC/100 WBC (Bld) [Ratio] 0 % 0-5 [facility] Bench Grinder Office Visit Reporton 01-17-2025 Bench Grinder Office Visit Report [facility] [address], [address] [place] [address] OFFICE VISIT Date of Service: 01/17/25 MR#: [id number] Acct: [id number] Name: NITZA PASTRANA Mar[place]osa Rep #: [id number] : 1980 Provider: Dr. Natalie Bonner, Age/Sex: 44/F Location: [facility] [place] Status: Signed Intake Vital Signs 08/09/24 16:33 01/17/25 10:12 Height 5 ft 4 in 5 ft 4 in Weight: 229 lb BMI 39.3 BP 131/81 H Intake Visit Reasons: 13wk LMP 10/15 Video Surveillance Technician Required: No Is patient in pain?: No Allergies No Known Allergies Allergy (Verified 01/17/25 10:10) Medications ???Medication ???Instructions ???Recorded ???Confirmed ???Type chromium 1,000 mcg tablet See Rx Instructions PO QDAY 01/17/25 History multivit-min no.71-iron fum 28 cap PO 01/14/25 01/17/25 History mg-folate no.1 1 mg-dha 300 mg capsule (PNV-Zwolle) ondansetron HCl 4 mg tablet 4 mg PO Q6H PRN nausea and 5 01/17/25 Rx vomiting #60 tabs Last Menstrual Period: 10/15/24 Zika: Zika virus screening: Negative : No PFSH PFSH Medical History PCOS (polycystic ovarian syndrome) demise before 20 weeks with retention of fetus Retained placenta Gestational diabetes Surgical History H/O dilation and curettage History of surgery Family History Mother Cancer, Onset Age: 65 Leukemia- chronic Sister Cancer, Onset Age: 17 Lymphoma x2 Social History adopted: No household members: spouse and children housing: house number of children: 5 current occupational status: employed and unemployed current occupation: [employer] current occupational exposures/hazards: No pets and animals: Yes (chickens, cows) pets and animals: farm animals history of recent travel: No sexually active: Yes Smoking Status: Never smoker alcohol intake: never substance use type: does not use diet: diabetic well-balanced diet: daily or most days caffeine: No eating out: rarely or never during the past year weight has: remained stable what type of physical activity do you participate in: walking frequency: daily duration: < 15 minutes/day song/sikh: Confucianism seatbelt use: sometimes do you feel safe at home: Yes additional social history: - Jomar Singh History 6 Elective abortions Hx Para 3 Spontaneous abortions 2 Hx # Term Pregnancies Ectopic pregnancies Hx # Pregnancies Multiple births # of living children 3 Past Pregnancies Del. Date Name GA/Weeks Outcome Route Bth Weight Gen Labor Lgth Anesthesia Del Locatn Provider FOB Unknown 10/2014 9 spontaneous Unknown adopted Oly (20yo) Unknown adopted Sohail(13yo) 12/13/16 Jose Juan Hadley 40 live - full term 7# Male none Henrik Hadley 07/04/19 Pérez 40 live - full term 9# Male Home Jomar 08/14/21 Sina 38 live - full term 8# Male Home Jomar 08/10/24 Joel 19 still Male none [facility] SM Delivery Date: Last Updated by: Sonya Garzon C Delivery Date: 12/13/16 Last Updated by: Sonya Courtney IOL post date Delivery Date: 07/04/19 Last Updated by: Sonya Courtney PUPS Delivery Date: 08/10/24 Last Updated by: Terra Bains RN See problem list for complications, and ? diabetes, anora testing sent, D and C done for retained placenta HPI 13wk LMP 10/15 Details: NITZA PASTRANA is a 44 year old who presents for New OB visit. OB Visit DC Calculator Estimated Delivery Date Method Current WG Current Estimate 07/22/25 LMP (Certain) 13w 4d Comments: HIV: Urine Culture: Sequential Screen: NIPT Screen: Estimated Due Date: 07/22/25 Expected Delivery Route/Plan Labor Preferences- CB/BF classes: [] labor support person: [] labor intervention preferences: [] pain management options preferred: [] cut cord/dad catch: [] : [] PP control planned: [] discussed possible routes of delivery and associated risks: [] special requests: [] Specific Issue/Plans Covid status: [] Flu vaccine: [] Tdap vaccine: [] Rhogam: [] LARC form signed: [] Problem list reviewed and updated with the most current plan of care details and appropriate orders placed. Relevant counseling for the gestational age provided. Continue routine care and follow up unless otherwise noted in visit notes/problem list details Initial Weight: Not Recorded Date -???-???-???-???-?? ?-???-???-???-???-? ??-???-???- EGA Weight BP Urine Prot -???-???-?? (more content not included)... Normal [facility] Platelet countOrdered By: Haile Shell on 01-17-2025 Platelets (Bld) [#/Vol] 320 10*3/uL 150-450 [facility] RBC Auto (Bld) [#/Vol]Ordere d By: Natalie Shell on 01-17-2025 RBC (Bld) [#/Vol] 4.63 10*6/uL 4.2-5.4 [facility] Rubella immune status determ ination by IgG antibody assayOrdered By: Natalie Shell on 01-17-2025 Rubella IgG Antibody Non-Reactive Nonreactive [facility] Comment on above: Antibody Result: Int erpretationNon-Reactive: Non-ImmuneReactive: ImmuneThe following results were obtained with the [employer]ys Rubella IgG assay. Results from assays of other manufacturers cannot be used interchangeably. Syphilis Antibodieson 2024 Syphilis Abs Non-Reactive Normal Nonreactive [facility] Comment on above: Performed By: #### L 100.0100, BTS, L3890.6006, L501.0250, L509.8002 #### [facility] [address] [place], [place], [id number] T. pallidum abOrdered By: Haile Shell on 01-17-2025 Syphilis Total Antibody Non-Reactive Nonreactiv e [facility] Type AND Screenon 01-17-2025 ABO and Rh group Nom (Bld) Blood group A Rh(D) negative Normal [facility] Comment on above: Order Comment: PN Performed By: #### L 100.0100, L3890.6102, L501.9985, BTS, L3890.6301, L509.8002, L3890.6006, L509.4006 #### [facility] [address] [place], [place], [id number] Urine cultureOrdered By: Millie Shell on 01-17-2025 Bacteria identified Cx Nom (U) Mixed Gram Pos & Gram Neg Org Abnormal [facility] White blood cell (WBC) count Ordered By: Natalie Suleman on 01-17-2025 WBC (Bld) [#/Vol] 8.6 10*3/uL 4.4-11.0 [facility] Anticardiolipin IgA,G,Mon ANTICARDIO IgA < 9 Normal 0-11 [facility] Comment on above: Result Comment: Nega tive: <12 Indeterminate: 12 - 20 Low-Med Positive: >20 - 80 High Positive: >80 Performed By: #### L 100.0100, BTS, L3890.6006, L501.0250, L509.8002 #### [facility] [address] [place], [place], [id number] ANTICARDIO IgG < 9 Normal 0-14 [facility] Comment on above: Result Comment: Nega tive: <15 Indeterminate: 15 - 20 Low-Med Positive: >20 - 80 High Positive: >80 Performed By: #### L 100.0100, BTS, L3890.6006, L501.0250, L509.8002 #### [facility] [address] [place], [address] Anticardio.IgM < 9 Normal 0-12 [facility] Comment on above: Result Comment: Nega tive: <13 Indeterminate: 13 - 20 Low-Med Positive: >20 - 80 High Positive: >80 Performed By: #### L 100.0100, BTS, L3890.6006, L501.0250, L509.8002 #### [facility] [address] [place], [address] Beta-2 Glycoprot IgG, A, 08-13-2024 B2 GLYCO I IGA <9 Normal 0-25 [facility] Comment on above: Result Comment: Resu lt Units: GPI IgA units The reference interval reflects a 3SD or 99th percentile interval, which is thought to represent a potentially clinically significant result in accordance with the International Consensus Statement on the classification criteria for definitive antiphospholipid syndrome (APS). J Thromb Haem 2006;4:295-306. Performed By: #### L 100.0100, BTS, L3890.6006, L501.0250, L509.8002 #### [facility] [address] [place], [address] B2 GLYCO I IGG <9 Normal 0-20 [facility] Comment on above: Result Comment: Resu lt Units: GPI IgG units The reference interval reflects a 3SD or 99th percentile interval, which is thought to represent a potentially clinically significant result in accordance with the International Consensus Statement on the classification criteria for definitive antiphospholipid syndrome (APS). J Thromb Haem 2006;4:295-306. Performed By: #### L 100.0100, BTS, L3890.6006, L501.0250, L509.8002 #### [facility] [address] [place], [address] B2 GLYCO I IGM <9 Normal 0-32 [facility] Comment on above: Result Comment: Resu lt Units: GPI IgM units The reference interval reflects a 3SD or 99th percentile interval, which is thought to represent a potentially clinically significant result in accordance with the International Consensus Statement on the classification criteria for definitive antiphospholipid syndrome (APS). J Thromb Haem 2006;4:295-306. Performed By: #### L 100.0100, BTS, L3890.6006, L501.0250, L509.8002 #### [facility] [address] [place], [address] CMV Acute Antibody IgMon CMV Ab, IgM < 30.0 Normal 0.0-29.9 [facility] Comment on above: Result Comment: Nega tive <30.0 Equivocal 30.0 - 34.9 Positive >34.9 A positive result is generally indicative of acute infection, reactivation or persistent IgM production. Performed at: [facility] [id number] [employer]: Arti Prince MD, Phone: [phone] Performed at: [facility] [address] [id number] [employer]: Sam Barron PhD, Phone: [phone] Performed By: #### L 100.0100, BTS, L3890.6006, L501.0250, L509.8002 #### [facility] [address] [place], [address] CMV Antibody IgGon 4 CMV AB IgG 9.70 U/mL High 0.00-0.59 [facility] Comment on above: Result Comment: Nega tive <0.60 Equivocal 0.60 - 0.69 Positive >0.69 Performed By: #### L 100.0100, BTS, L3890.6006, L501.0250, L509.8002 #### [facility] [address] [place], [address] Lupus Anticoagulant Compon 1 10-13-2023 aPTT Coag (Bld) [Time] 35.0 s Normal 0.0-43.5 [facility] Comment on above: Performed By: #### L 100.0100, BTS, L3890.6006, L501.0250, L509.8002 #### [facility] [address] [place], [address] DILUTE PT (dPT) 34.2 sec Normal 0.0-47.6 [facility] Comment on above: Performed By: #### L 100.0100, BTS, L3890.6006, L501.0250, L509.8002 #### [facility] [address] [place], [address] dPT Conf. Ratio 1.22 Ratio Normal 0.00-1.34 [facility] Comment on above: Performed By: #### L 100.0100, BTS, L3890.6006, L501.0250, L509.8002 #### [facility] [address] [place], [address] DRVVT 38.8 sec Normal 0.0-47.0 [facility] Comment on above: Performed By: #### L 100.0100, BTS, L3890.6006, L501.0250, L509.8002 #### [facility] [address] [place], [address] Interpretation Comment: Normal . [facility] Comment on above: Result Comment: No l upus anticoagulant was detected. Performed By: #### L 100.0100, BTS, L3890.6006, L501.0250, L509.8002 #### [facility] [address] [place], [address] THROMBIN TIME 16.2 sec Normal 0.0-23.0 [facility] Comment on above: Performed By: #### L 100.0100, BTS, L3890.6006, L501.0250, L509.8002 #### [facility] [address] [place], [address] Parvovirus B19 IgG AND IgMon 08-13-2024 PARVO B19 IGG 0.2 index Normal 0.0-0.8 [facility] Comment on above: Result Comment: Nega tive <0.9 Equivocal 0.9 - 1.1 Positive >1.1 Performed By: #### L 100.0100, BTS, L3890.6006, L501.0250, L509.8002 #### [facility] [address] [place], [address] PARVO B19 IGM 0.1 index Normal 0.0-0.8 [facility] Comment on above: Result Comment: Nega tive <0.9 Equivocal 0.9 - 1.1 Positive >1.1 Performed By: #### L 100.0100, BTS, L3890.6006, L501.0250, L509.8002 #### [facility] [address] [place], [address] Toxoplasma Gondii IgGon TOXOPLASMA IgG < 3.0 Normal 0.0-7.1 [facility] Comment on above: Result Comment: Nega tive <7.2 Equivocal 7.2 - 8.7 Positive >8.7 Performed By: #### L 100.0100, BTS, L3890.6006, L501.0250, L509.8002 #### [facility] [address] [facility] [place], [address] Toxoplasma Gondii IgMon Tox. gondii Com Comment Normal . [facility] Comment on above: Result Comment: It i s presumed the patient has not been infected with and is not undergoing an acute infection with Toxoplasma. If symptoms persist, submit a new specimen after three weeks. Performed By: #### L 100.0100, BTS, L3890.6006, L501.0250, L509.8002 #### [facility] [address] [facility] [place], [address] TOXOPLASMA IgM < 3.0 Normal 0.0-7.9 [facility] Comment on above: Result Comment: Nega tive <8.0 Equivocal 8.0 - 9.9 Positive >9.9 Performed By: #### L 100.0100, BTS, L3890.6006, L501.0250, L509.8002 #### [facility] [address] [facility] [place], [address] MR/[id number] 08-11-2024 MR/POSTOPAN2 [facility] Medical Records Department [address] [place] [address] Anesthesia Postop Eval II 08/11/24 0911 MR#: [id number] Acct: [id number] Name: NITZA PASTRANA Rep #: [id number] : 1980 43 From: Shelton Bearden MD PCP: Lionel Cruz PA-C Status:DIS IN Y Race: C Location: [id number] Anesthesia Postop Eval I Sum Postop Eval Completion status Anesthesia document: Postop Eval 1 completed: Yes Anesthesia Postop Eval I Summary Anesthesia Postop Eval I Summary: Anesthesia Postop Eval I: Assessment Summary Airway patent Yes 08/10/24 08:43 [employer].JDEF Spontaneous unlabored Yes 08/10/24 08:43 [employer].JDEF respirations Mental status Awake,Calm 08/10/24 08:43 [employer].JDEF nausea No 08/10/24 08:43 SU[employer]VIS[employer].JDEF Vomiting No 08/10/24 08:43 [employer]VIS[employer].JDEF Anesthesia Postop Eval I: Fluid Summary Crystalloid volume administer 20 08/10/24 08:43 SU[employer]VIS[employer].JDEF (ml) Colloids volume administered ( ml) Blood Product volume administered (ml) Total IV fluid infused 20 08/10/24 08:43 SU[employer]VIS[employer].JDEF Anesthesia Postop Eval I: Summary Notes Anesthesia Complication No 08/10/24 08:43 SUPERVIS[employer].JDEF Anesthesia Complication Comment: Post-operative progress note Anesthesia: Postop Eval II Evaluation Mental status: Awake and Calm Pain Level: 1 nausea: No Vomiting: No Complications Anesthesia Complication: No 08/11/2412 Date Shelton Bearden MD Cosigner Signature: Date CC: Signed [facility] Urine Cultureon 08-11-2024 URC Below infection level. Mixed Gram Pos Gram Neg Org [place] Count 1000-10,000 MIXC Mixed contaminants. Submit a new specimen if indicated. [facility] Comment on above: Performed By: #### L 100.0100, BTS, L3890.6006, L501.0250, L509.8002 #### [facility] [address] [place], [address] CBC-Complete Blood Cnt No Di ffon 08-10-2024 Erythrocyte distribution width (RBC) [Ratio] 12.9 % Normal 11.6-14.6 [facility] Comment on above: Performed By: #### L 100.0100, BTS, L3890.6006, L501.0250, L509.8002 #### [facility] [address] [place], [address] Hematocrit (Bld) [Volume fraction] 35.5 % Low 37-47 [facility] Comment on above: Performed By: #### L 100.0100, BTS, L3890.6006, L501.0250, L509.8002 #### [facility] [address] [place], [address] Hemoglobin (Bld) [Mass/Vol] 12.3 g/dL Normal 12.0-15.0 [facility] Comment on above: Performed By: #### L 100.0100, BTS, L3890.6006, L501.0250, L509.8002 #### [facility] [address] [place], [address] MCH (RBC) [Entitic mass] 29.6 pg Normal 27.0-32.0 [facility] Comment on above: Performed By: #### L 100.0100, BTS, L3890.6006, L501.0250, L509.8002 #### [facility] [address] [place], [address] MCHC (RBC) [Mass/Vol] 34.6 g/dL Normal 32-36 [facility] Comment on above: Performed By: #### L 100.0100, BTS, L3890.6006, L501.0250, L509.8002 #### [facility] [address] [place], [address] MCV (RBC) [Entitic vol] 85.3 fL Normal 81-99 [facility] Comment on above: Performed By: #### L 100.0100, BTS, L3890.6006, L501.0250, L509.8002 #### [facility] [address] [place], [address] Platelet mean volume (Bld) [Entitic vol] 10.1 fL Normal 6.2-12.0 [facility] Comment on above: Performed By: #### L 100.0100, BTS, L3890.6006, L501.0250, L509.8002 #### [facility] [address] [place], [address] Platelets (Bld) [#/Vol] 316 10*3/uL Normal 150-450 [facility] Comment on above: Performed By: #### L 100.0100, BTS, L3890.6006, L501.0250, L509.8002 #### [facility] [address] [place], [address] RBC (Bld) [#/Vol] 4.16 10*6/uL Low 4.2-5.4 [facility] Comment on above: Performed By: #### L 100.0100, BTS, L3890.6006, L501.0250, L509.8002 #### [facility] [address] [place], [address] RDW SD 39.9 fl Normal 35.1-43.9 [facility] Comment on above: Performed By: #### L 100.0100, BTS, L3890.6006, L501.0250, L509.8002 #### [facility] [address] [place], [address] WBC (Bld) [#/Vol] 10.1 10*3/uL Normal 4.4-11.0 [facility] Comment on above: Performed By: #### L 100.0100, BTS, L3890.6006, L501.0250, L509.8002 #### [facility] [address] [place], [address] Discharge Instructionon Discharge Instruction [facility] Medical Records Department [address] [place] [address] Instructions for Home/Discharge Instructions 08/10/24 0547 MR#: [id number] Acct: [id number] Name: NITZA PASTRANA Rep #: [id number] : 1980 43 From: Tiffani Ansari MD PCP: Lionel Cruz PA-C Status:ADM IN Discharge Instructions Diet Discharge Diet: No restrictions Activity Discharge Activity: Return to Normal Activity, May Not Drive (while taking narcotic pain medications.) and May Shower May resume sexual activity in: 4-6 weeks Dressing / Incision Call your doctor if your incision/area has: Continuous Slow Oozing, Sudden Increased Bleeding, Increased Pain/ Swelling, Increased Redness and Foul Smelling Discharge Follow Up Care Please Follow Up With: Tiffani Ansari MD When: Call [phone] to make an appointment with your doctor in 6 weeks. If you had elevated blood pressure or 4th degree laceration, you will need to be seen in 2 weeks. Test Results: Test results from this visit will be discussed in further detail at your follow-up appointment, if applicable. Discharge Plan Admission Admit Date/Time: 08/09/24 15:10 Attending Provider: Tiffani Ansari Primary Care Provider: Lionel Cruz Discharge Orders/Prescription s Prescriptions: No Action NK Referrals / Follow Up: Lionel Cruz PA-C [Primary Care Provider] - 08/10/24 0548 Tiffani Ansari MD CC: KALPANA Cruz Signed Normal [facility] H AND P Exam - OB/GYNon H&P Exam - CLINICAL SUPERVISOR [facility] Medical Records Department [address] [place] [address] H P Exam - CLINICAL SUPERVISOR 08/10/24 0044 MR#: [id number] Acct: [id number] Name: NITZA PASTRANA Rep #: [id number] : 1980 43 From: Tiffani Ansari MD PCP: Lionel Cruz PA-C Status:ADM IN [facility] - General General Date of Admission: 08/09/24 HPI Narrative NITZA PASRTANA, is a 43 F who presents @ 19w1d with demise, confirmed on ultrasound over the weekend with demise measuring 15 weeks. no vb lof no regular ctx no fevers or recent illness. she was checking some BS at home and fastings were elevtaed in the 120s and she had some random sugars in the 200s. she had been receiving [facility] confirms no color doppler flow, transverse to oblique presentation normal fluid, scalloping of the head/? lemon sign Maternal Data Information DC Calculator Estimated Delivery Date Method Current WG Current Estimate 01/03/25 [facility]w [facility] Medical History (Updated 08/10/24 @ 00:[address] Tiffani Ansari MD) Gestational diabetes Home Medications ???Medication ???Instructions ???Recorded ???Last Taken ???Type NK 08/09/24 Unknown History Allergy/AdvReac Type Severity Reaction Status Date / Time No Known Allergies Allergy Verified 08/09/24 16:33 Surgical History History of surgery Social History Smoking Status: Never smoker History Elective abortions Hx Para 3 Spontaneous abortions Hx # Term Pregnancies Ectopic pregnancies Hx # Pregnancies Multiple births # of living children ROS Constitutional Constitutional: Reports systems reviewed and no addt'l complaints, except as documented Eyes Eyes: Denies change in vision ENT HEENT: Reports systems reviewed and no addt'l complaints, except as documented; Denies headache(s) Cardiovascular Cardiovascular: Reports systems reviewed and no addt'l complaints, except as documented; Denies chest pain or dyspnea Respiratory/Chest Respiratory/Chest: Reports systems reviewed and no addt'l complaints, except as documented Gastrointestinal Gastrointestinal: Reports systems reviewed and no addt'l complaints, except as documented; Denies abdominal pain Genitourinary Genitourinary: Reports systems reviewed and no addt'l complaints, except as documented, contractions Details: present (irregular) and movement Details: present; Denies dysuria or genital lesions Musculoskeletal Musculoskeletal: Reports systems reviewed and no addt'l complaints, except as documented Neurologic Neurologic: Reports systems reviewed and no addt'l complaints, except as documented Endocrine Endocrinology: Reports systems reviewed and no addt'l complaints, except as documented Vital Signs Vital Signs Vital Signs: 08/09/24 16:57 08/09/24 16:57 08/09/24 16:57 Temperature Temperature Source Pulse Rate 99 Respiratory Rate Blood Pressure 135/78 H BP Systolic 135 BP Diastolic 78 Pulse Ox 96 08/09/24 16:57 08/09/24 16:57 08/09/24 16:57 Temperature 99.1 F Temperature Source Temporal Pulse Rate Respiratory Rate 16 Blood Pressure BP Systolic BP Diastolic Pulse Ox 08/09/24 16:57 08/09/24 16:57 08/09/24 19:40 Temperature 99.2 F H 98.2 F Temperature Source Pulse Rate Respiratory Rate Blood Pressure BP Systolic BP Diastolic Pulse Ox 97 08/09/24 19:41 08/09/24 19:41 08/09/24 19:41 Temperature Temperature Source Temporal Pulse Rate 101 H Respiratory Rate Blood Pressure 137/64 H BP Systolic 137 BP Diastolic 64 Pulse Ox 08/09/24 19:41 08/09/24 19:41 08/09/24 22:52 Temperature 98.3 F Temperature Source Pulse Rate Respiratory Rate 16 Blood Pressure 138/65 H BP Systolic 138 BP Diastolic 65 Pulse Ox 08/09/24 22:52 Temperature Temperature Source Pulse Rate 94 Respiratory Rate Blood Pressure BP Systolic BP Diastolic Pulse Ox Weight Weight: 233 lb 7.512 oz Body Mass Index (BMI) 40.0 Physical Exam Const alert, oriented x3, no apparent distress and healthy appearing HEENT normocephalic and moist oral mucous membranes Head and Scalp: atraumatic Neck full ROM, no lymphadenopathy, supple and thyroid normal General: trachea midline Lymph Lymphatic: no lymphadenopathy noted Chest inspection of chest normal Resp normal respiratory effort Cardio regular rate GI soft to palpation and non-tender Inspection: gravid Extremity normal to inspection General Extrem (more content not included)... Normal [facility] KBSTon 08-10-2024 [facility] Study Positive Abnormal Negative [facility] Comment on above: Result Comment: Feta l-maternal hemorrhage ( RBCs): 5 mL. Performed By: #### K BST #### [facility] [address] [place], [place] [address] SamsonsamJorgeon 08-10-2024 [facility] Positive Abnormal [facility] Comment on above: Order Comment: RESUL TS CALLED TO ILEANA 08/10/24 1329 Fransico Jacobs.REPORT READ BACK BY KEVIN. Result Comment: Samsonwillam rajan [facility] Study Reference: Negative POSITIVE AB* -maternal hemorrhage ( RBCs): 5 mL. TESTING PERFORMED AT [facility]. ORIGINAL REPORT ON FILE IN LAB CONTAINS ADDITIONAL TEST SITE INFORMATION. Performed By: #### L 100.0100, BTS, L3890.6006, L501.0250, L509.8002 #### [facility] [address] [facility] [place], [address] MR/OB.VAGDELIon 08-10-2024 [facility] Medical Records Department [address] [place] [address] OB VAGINAL DELIVERY 08/10/24 0541 MR#: [id number] Acct: [id number] Name: NITZA PASTRANA Rep #: [id number] : 1980 43 From: Tiffani Ansari MD PCP: Lionel Cruz PA-C Status:ADM IN Location: [id number] Assessment Plan (1) Vaginal delivery: COMMENT: vaginal breech delivery 19 week demise measuring 15 weeks, carlos cna patient Maternal Data Information DC Calculator Estimated Delivery Date Method Current WG Current Estimate 01/03/25 Manual 19w 1d Vaginal Delivery Vaginal Delivery Information Procedure Performed: Spontaneous Vaginal Delivery Surgeon/Jess r: Tiffani Ansari Date of Procedure: 08/10/24 Pre-Procedure Diagnosis: IUFD 19 weeks Post-Procedure Diagnosis: same Type of anesthesia: None Estimated Blood Loss: 300 Findings Description of procedure: patient was feeling pressure and had increased bleeding. Upon vaginal examination the membranes were bulging through the cervix into the vagina with the presenting part of feet. Patient began having nausea and vomiting and spontaneously delivered in with spontaneous rupture of membranes. Cord was clamped and cut and the examined and noted to have low-set ears but otherwise no distinguishing abnormal features. Bleeding was within normal limits. Cord clamp placed on the patient's side of the cord and vaginal exam performed and part of the placenta was felt coming through the cervix additional Cytotec dose was given, pitocin started to aid in delivery of the placenta. Expectant management for the placenta was done and retained products noted after 3 hours so decision for d and c made please see separate operative note. ebl [id number] Multi Select Codes Urinary/Genital Urinary/Genital CPT Codes: Other Procedure See Report ([place] [address] because IOL with cytotec delivery of under 20 weeks and then d and c for retained placenta) 08/10/24 8365 Cosigner Signature (if applicable): CC: KALPANA Cruz; Dr. Tiffani Ansari MD Signed Normal [facility] MR/POSTOP.Lisandro 08-10-2024 MR/POSTOP.[facility] Medical Records Department [address] [place] [address] Anesthesia Postop Eval I 08/10/24 0842 MR#: [id number] Acct: [id number] Name: NITZA PASTRANA Rep #: [id number] : 1980 43 From: Kellie Capone CRNA PCP: Lionel Cruz PA-C Status:ADM IN Y Race: C Location: [place] [address] Anesthesia: Postop Eval I Current Vital Signs Temperature: 97.8 F Pulse Rate: 94 Blood Pressure: 122/81 Respiratory Rate: 16 Pulse Ox: 98 Oxygen Delivery Method: Room Air Assessment Airway patent: Yes Spontaneous unlabored respirations: Yes Mental status: Awake and Calm nausea: No Vomiting: No Anesthesia Complication: No Fluid Hydration Crystalloid volume administer (ml): 20 Total IV fluid infused: 20 Progress Note Anesthesia document: Postop Eval 1 completed: Yes 08/10/24 0843 Date Kellie DeForeest [employer] Cosigner Signature: Date CC: Signed Normal [facility] Operative Reporton 4 Operative Report [facility] Medical Records Department [address] [place] [address] Operative Report 08/10/24 0755 MR#: [id number] Acct: [id number] Name: NITZA PASTRANA Rep #: [id number] : 1980 43 From: Tiffani Ansari MD PCP: Lionel Cruz PA-C Status:ADM IN Location: [id number] Problems Associated Problem List Diagnoses (1) Retained placenta: (2) Vaginal delivery: (3) demise before 20 weeks with retention of fetus: Operative Report (Standard) Operative Information Surgery/Procedure Performed: suction d and c Surgeon: Tiffani Ansari Date of Procedure: 08/10/24 Procedure Start Time: 08:15 Procedure Stop Time: 08:25 Pre-Operative Diagnosis: retained POC Post-Operative Diagnosis: same Select all DRAINS/GRAFTS/IMPLA NTS that apply: None Type of Anesthesia: IV Sedation Estimated Blood Loss: 200 Specimen collected: Yes Description of specimen(s) removed: placenta Description of surgery: Patient was taken to the operating room and placed under MAC local anesthesia. She was prepped and draped in the normal sterile fashion the dorsal lithotomy position. Bladder was drained of clear urine and anterior lip of the cervix was grasped and after plcaenta noted at the cervical os was removed, multiple pieces were still seen left as it was very friable and fell apart, and the uterus sounded to 10cm. Cervix was progressively dilated to allow passage of a 10mm suction curette. Progressive passes were made removing the retained products of conception without complication. Sharp curettage confirmed complete removal of the retained products. All instruments were removed from the vagina and excellent hemostasis was noted and the patient was taken to recovery in stable condition. Surgical Findings: retained placenta Area Counselor mercerizer machine operator: No Complications Complications: No Multi Select Codes Urinary/Genital Urinary/Genital CPT Codes: Other Procedure See Report (see [place] [address] because IOL with cytotec delivery of under 20 weeks and then d and c for r etained placenta) 08/10/24 1311 Cosigner Signature (if applicable): CC: KALPANA Cruz; Dr. Tiffani Ansari MD Signed Normal [facility] Rh Negative Mom Workupon ABO and Rh group Nom (Bld) Test Not Performed Normal [facility] Comment on above: Order Comment: Comme nts: Age > 13 [id number] Result Comment: DUPL ICATE Performed By: #### L 100.0100, BTS, L3890.6006, L501.0250, L509.8002 #### [facility] [address] [facility] [place], [place], [id number] DIRECT ANTIGLOB Not performed Normal NEGATIVE [facility] Comment on above: Order Comment: Comme nts: Age > 13 [id number] Result Comment: DUPL ICATE Performed By: #### L 100.0100, BTS, L3890.6006, L501.0250, L509.8002 #### [facility] [address] [place], [place], [id number] SCREEN Not performed Normal NEGATIVE [facility] Comment on above: Order Comment: Comme nts: Age > 14 [id number] Result Comment: DUPL ICATE Performed By: #### L 100.0100, BTS, L3890.6006, L501.0250, L509.8002 #### [facility] [address] [place], [place], [address] MOM'S ABS Not performed Normal [facility] Comment on above: Order Comment: Comme nts: Age > 14 [id number] Result Comment: DUPL ICATE Performed By: #### L 100.0100, BTS, L3890.6006, L501.0250, L509.8002 #### [facility] [address] [place], [address] Surgery Specimen Level Von 1 10-10-2023 Surgery Specimen Level V ---- Patient Age/Sex Location Account Attending Physician NITZA PASTRANA 43/F [id number] Dr. Tiffani Ansari MD Specimen: [id number] Received: 08/10/24 Status: KAVEH Lakhani Num: [id number] Spec Type: PLACENTA Subm Dr: Dr. Tiffani Ansari MD HEADER OPERATION: Dilation and curettage, suction PRE-OP DIAGNOSIS: demise before 20 weeks with retention of fetus TISSUE SUBMITTED: Retained placenta MICROSCOPIC DIAGNOSIS Retained placenta: Placental disc - disrupted immature placental tissue and blood clots (108gm). - Focal calcification. Membranes - no pathologic diagnosis. Umbilical cord - three blood vessels and no pathologic diagnosis. AUDREY: 08/11/2024 MICROSCOPIC DESCRIPTION Slides are reviewed. GROSS DESCRIPTION Received in fixative is one container labeled with the patient's name and designated Retained placenta. The specimen consists of placental tissue with marked disruption, separate pieces of placental tissue and blood clots weighing in aggregate 108gm and measuring 11.0 x 10.0 x 3.0cm. Placental tissue also shows presence of membrane which are watts, davis in color. Centrally inserted umbilical cord measures 16.5cm in length and 0.1cm in diameter. Mechanics Supervisor sections are submitted as follows: 1- Membrane roll, 2- Cord, maternal end, 3 -Cord, end, 4- Placental disc, and maternal surfaces, 5- Placental disc, and maternal surfaces, 6- Placental disc, and maternal surfaces. 08/10/2024 TC:5 CPT:17734 Patient Age/Sex Location Account Attending Physician NITZA PASTRANA 43/F [id number] Dr. Tiffani Ansari MD Signed (signatur e on file) Dr. Josue Ralph MD 08/11/24 1312 Normal [facility] Comment on above: Performed By: #### L 100.0100, BTS, L3890.6006, L501.0250, L509.8002 #### [facility] [address] [place], [place], [address] BRho(D) IGon 08-09-2024 Rho(D) IG Normal [facility] Comment on above: Result Comment: [id number] Rho(D) IG PRSMD TRFSD 08/10/24 1045 Performed By: #### L 100.0100, BTS, L3890.6006, L501.0250, L509.8002 #### [facility] [address] [place], [place], [id number] Bedside Glucoseon 08-09-2024 FINGERSTICK GLU 97 mg/dL Normal 74-106 [facility] Comment on above: Result Comment: ROCIO WHITT OF PATIENT CARE PER NURSING PROTOCOL Performed By: #### L 501.080 #### [facility] [address] [place], [address] CBC W/Diff, Automatedon 11-0 4-2023 Absolute Lymph 1.71 X10 3/uL Normal 0.83-4.51 [facility] Comment on above: Performed By: #### L 100.0100, BTS, L3890.6006, L501.0250, L509.8002 #### [facility] [address] [place], [address] Absolute Neut 7.6 X10 3/uL Normal 2.0-7.7 [facility] Comment on above: Performed By: #### L 100.0100, BTS, L3890.6006, L501.0250, L509.8002 #### [facility] [address] [place], [address] Basophils/100 WBC (Bld) 0.2 % Normal 0-1 [facility] Comment on above: Performed By: #### L 100.0100, BTS, L3890.6006, L501.0250, L509.8002 #### [facility] [address] [place], [address] Eosinophils/100 WBC (Bld) 0.7 % Normal 0-5 [facility] Comment on above: Performed By: #### L 100.0100, BTS, L3890.6006, L501.0250, L509.8002 #### [facility] [address] [place], [address] Erythrocyte distribution width (RBC) [Ratio] 12.9 % Normal 11.6-14.6 [facility] Comment on above: Performed By: #### L 100.0100, BTS, L3890.6006, L501.0250, L509.8002 #### [facility] [address] [place], [address] Hematocrit (Bld) [Volume fraction] 37.4 % Normal 37-47 [facility] Comment on above: Performed By: #### L 100.0100, BTS, L3890.6006, L501.0250, L509.8002 #### [facility] [address] [place], [address] Hemoglobin (Bld) [Mass/Vol] 12.9 g/dL Normal 12.0-15.0 [facility] Comment on above: Performed By: #### L 100.0100, BTS, L3890.6006, L501.0250, L509.8002 #### [facility] [address] [place], [address] IG% 0.500 Normal 0.0-0.9 [facility] Comment on above: Result Comment: IG% - Immature Granulocytes (promyelocytes, myelocytes and metamyelocytes) > 1% indicates that a LEFT SHIFT is Present. Performed By: #### L 100.0100, BTS, L3890.6006, L501.0250, L509.8002 #### [facility] [address] [place], [address] Lymphocytes/100 WBC (Bld) 17.1 % Low 19-41 [facility] Comment on above: Performed By: #### L 100.0100, BTS, L3890.6006, L501.0250, L509.8002 #### [facility] [address] [place], [address] MCH (RBC) [Entitic mass] 29.5 pg Normal 27.0-32.0 [facility] Comment on above: Performed By: #### L 100.0100, BTS, L3890.6006, L501.0250, L509.8002 #### [facility] [address] [place], [address] MCHC (RBC) [Mass/Vol] 34.5 g/dL Normal 32-36 [facility] Comment on above: Performed By: #### L 100.0100, BTS, L3890.6006, L501.0250, L509.8002 #### [facility] [address] [place], [address] MCV (RBC) [Entitic vol] 85.6 fL Normal 81-99 [facility] Comment on above: Performed By: #### L 100.0100, BTS, L3890.6006, L501.0250, L509.8002 #### [facility] [address] [place], [address] Monocytes/100 WBC (Bld) 5.2 % Normal 0-10 [facility] Comment on above: Performed By: #### L 100.0100, BTS, L3890.6006, L501.0250, L509.8002 #### [facility] [address] [place], [address] Neutrophils/100 WBC (Bld) 76.3 % High 47-70 [facility] Comment on above: Performed By: #### L 100.0100, BTS, L3890.6006, L501.0250, L509.8002 #### [facility] [address] [place], [address] Nucleated RBC (Bld) [#/Vol] 0 10*3/uL Normal 0-5 [facility] Comment on above: Performed By: #### L 100.0100, BTS, L3890.6006, L501.0250, L509.8002 #### [facility] [address] [place], [address] Platelet mean volume (Bld) [Entitic vol] 10.1 fL Normal 6.2-12.0 [facility] Comment on above: Performed By: #### L 100.0100, BTS, L3890.6006, L501.0250, L509.8002 #### [facility] [address] [place], [address] Platelets (Bld) [#/Vol] 304 10*3/uL Normal 150-450 [facility] Comment on above: Performed By: #### L 100.0100, BTS, L3890.6006, L501.0250, L509.8002 #### [facility] [address] [place], [address] RBC (Bld) [#/Vol] 4.37 10*6/uL Normal 4.2-5.4 [facility] Comment on above: Performed By: #### L 100.0100, BTS, L3890.6006, L501.0250, L509.8002 #### [facility] [address] [place], [address] RDW SD 39.8 fl Normal 35.1-43.9 [facility] Comment on above: Performed By: #### L 100.0100, BTS, L3890.6006, L501.0250, L509.8002 #### [facility] [address] [place], [address] WBC (Bld) [#/Vol] 10.0 10*3/uL Normal 4.4-11.0 [facility] Comment on above: Performed By: #### L 100.0100, BTS, L3890.6006, L501.0250, L509.8002 #### [facility] [address] [place], [address] Comprehensive Metabolic Prof ilon 08-09-2024 Albumin [Mass/Vol] 3.1 g/dL Low 3.2-5.0 [facility] Comment on above: Performed By: #### L 100.0100, BTS, L3890.6006, L501.0250, L509.8002 #### [facility] [address] [place], [address] Albumin/Globulin [Mass ratio] 0.8 {ratio} Low 0.9-2.4 [facility] Comment on above: Performed By: #### L 100.0100, BTS, L3890.6006, L501.0250, L509.8002 #### [facility] [address] [place], [address] ALK P 42 U/L Low 45-117 [facility] Comment on above: Performed By: #### L 100.0100, BTS, L3890.6006, L501.0250, L509.8002 #### [facility] [address] [place], [address] ALT [Catalytic activity/Vol] 23 U/L Normal 13-56 [facility] Comment on above: Performed By: #### L 100.0100, BTS, L3890.6006, L501.0250, L509.8002 #### [facility] [address] [place], [address] AST [Catalytic activity/Vol] 14 U/L Low 15-37 [facility] Comment on above: Performed By: #### L 100.0100, BTS, L3890.6006, L501.0250, L509.8002 #### [facility] [address] [place], [address] Bilirubin [Mass/Vol] 0.90 mg/dL Normal 0.20-1.00 [facility] Comment on above: Result Comment: For patients on eltrombopag therapy, use of Dimension Shields TBIL is not recommended. Performed By: #### L 100.0100, BTS, L3890.6006, L501.0250, L509.8002 #### [facility] [address] [place], [address] BUN/CRE 15.3 RATIO Normal 10-20 [facility] Comment on above: Performed By: #### L 100.0100, BTS, L3890.6006, L501.0250, L509.8002 #### [facility] [address] [place], [address] CA,Total 9.0 mg/dL Normal 8.5-10.1 [facility] Comment on above: Performed By: #### L 100.0100, BTS, L3890.6006, L501.0250, L509.8002 #### [facility] [address] [place], [address] Chloride [Moles/Vol] 109 mmol/L High 98-107 [facility] Comment on above: Performed By: #### L 100.0100, BTS, L3890.6006, L501.0250, L509.8002 #### [facility] [address] [place], [address] CO2 [Moles/Vol] 19.0 mmol/L Low 21.0-32.0 [facility] Comment on above: Performed By: #### L 100.0100, BTS, L3890.6006, L501.0250, L509.8002 #### [facility] [address] [place], [address] Creatinine [Mass/Vol] 0.52 mg/dL Low 0.55-1.02 [facility] Comment on above: Result Comment: The validity of the calculated GFR GFRAA in patients over 70 years has not been determined. Clinical correlation is essential. Performed By: #### L 100.0100, BTS, L3890.6006, L501.0250, L509.8002 #### [facility] [address] [place], [address] ECRCL 167.27 ml/min Normal [facility] Comment on above: Performed By: #### L 100.0100, BTS, L3890.6006, L501.0250, L509.8002 #### [facility] [address] [place], [address] EST GFR - AA 165 mL/min Normal >60 [facility] Comment on above: Result Comment: Afri can [place] GFR Calc Performed By: #### L 100.0100, BTS, L3890.6006, L501.0250, L509.8002 #### [facility] [address] [place], [address] GAP 10 Normal 5-15 [facility] Comment on above: Performed By: #### L 100.0100, BTS, L3890.6006, L501.0250, L509.8002 #### [facility] [address] [place], [address] GFR/1.73 sq M.predicted among non-blacks MDRD (S/P/Bld) [Vol rate/Area] 136 mL/min/{1.73_m2} Normal >60 [facility] Comment on above: Result Comment: Non- GFR Calc Performed By: #### L 100.0100, BTS, L3890.6006, L501.0250, L509.8002 #### [facility] [address] [place], [address] Globulin (S) [Mass/Vol] 3.7 g/dL Normal 2.2-4.2 [facility] Comment on above: Performed By: #### L 100.0100, BTS, L3890.6006, L501.0250, L509.8002 #### [facility] [address] [place], [address] Glucose [Mass/Vol] 92 mg/dL Normal 74-106 [facility] Comment on above: Performed By: #### L 100.0100, BTS, L3890.6006, L501.0250, L509.8002 #### [facility] [address] [place], [address] Potassium [Moles/Vol] 3.3 mmol/L Low 3.5-5.1 [facility] Comment on above: Performed By: #### L 100.0100, BTS, L3890.6006, L501.0250, L509.8002 #### [facility] [address] [place], [address] Sodium [Moles/Vol] 138 mmol/L Normal 136-145 [facility] Comment on above: Performed By: #### L 100.0100, BTS, L3890.6006, L501.0250, L509.8002 #### [facility] [address] [place], [address] T PROT 6.8 g/dL Normal 6.4-8.2 [facility] Comment on above: Performed By: #### L 100.0100, BTS, L3890.6006, L501.0250, L509.8002 #### [facility] [address] [place], [address] Urea nitrogen [Mass/Vol] 8 mg/dL Normal 7-18 [facility] Comment on above: Performed By: #### L 100.0100, BTS, L3890.6006, L501.0250, L509.8002 #### [facility] [address] [place], [address] Fibrinogenon 08-09-2024 FIBRINOGEN 540 mg/dl High 203-444 [facility] Comment on above: Performed By: #### L 100.0100, BTS, L3890.6006, L501.0250, L509.8002 #### [facility] [address] [place], [address] Hemoglobin A1con 08-09-2024 HbA1c (Bld) [Mass fraction] 5.2 % Normal 3.8-5.6 [facility] Comment on above: Result Comment: Norm al < 5.7 % Prediabetic 5.7 - 6.4 % Diabetic >or= 6.5 % Please note range changes. Performed By: #### L 100.0100, BTS, L3890.6006, L501.0250, L509.8002 #### [facility] [address] [place], [address] L509.8000on 08-09-2024 Syphilis Abs Non-Reactive Normal [facility] Comment on above: Performed By: #### L 100.0100, BTS, L3890.6006, L501.0250, L509.8002 #### [facility] [address] [place], [address] M8200.0100on 08-09-2024 M8200.0100 Negative Normal [facility] Comment on above: Performed By: #### L 100.0100, BTS, L3890.6006, L501.0250, L509.8002 #### [facility] [address] [place], [address] Partial Thromboplast Timeon 08-09-2024 aPTT Coag (Bld) [Time] 26.3 s Normal 24.1-36.2 [facility] Comment on above: Performed By: #### L 100.0100, BTS, L3890.6006, L501.0250, L509.8002 #### [facility] [address] [place], [address] Prothrombin Time w/INRon INR Coag (PPP) [Relative time] 1.0 {INR} Normal [facility] Comment on above: Performed By: #### L 100.0100, BTS, L3890.6006, L501.0250, L509.8002 #### [facility] [address] [place], [address] PT Coag (PPP) [Time] 13.3 s Normal 11.7-14.9 [facility] Comment on above: Performed By: #### L 100.0100, BTS, L3890.6006, L501.0250, L509.8002 #### [facility] [address] [place], [address] Thyroid Stim Hormone (TSH)on 08-09-2024 TSH 1.110 uIU/mL Normal 0.358-3.740 [facility] Comment on above: Performed By: #### L 100.0100, BTS, L3890.6006, L501.0250, L509.8002 #### [facility] [address] [place], [address] Type AND Screenon 08-09-2024 Ab SCREEN GEL Negative Normal [facility] Comment on above: Order Comment: PN Performed By: #### L 100.0100, BTS, L3890.6006, L501.0250, L509.8002 #### [facility] [address] [place], [address] Urinalysis, Completeon 08-09 BACTERIA RARE Normal None Seen [facility] Comment on above: Order Comment: COLLE CTOR TO SPECIFY Performed By: #### L 100.0100, BTS, L3890.6006, L501.0250, L509.8002 #### [facility] [address] [place], [address] EPI,SQUAMOUS 0-5 SEEN Normal 5-10 [facility] Comment on above: Order Comment: COLLE CTOR TO SPECIFY Performed By: #### L 100.0100, BTS, L3890.6006, L501.0250, L509.8002 #### [facility] [address] [place], [address] WBC 0-5 SEEN Normal 0-5 [facility] Comment on above: Order Comment: COLLE CTOR TO SPECIFY Performed By: #### L 100.0100, BTS, L3890.6006, L501.0250, L509.8002 #### [facility] [address] [place], [address] Mucus Ql (Urine sed) 0 SEEN Normal [facility] Comment on above: Order Comment: COLLE CTOR TO SPECIFY Performed By: #### L 100.0100, BTS, L3890.6006, L501.0250, L509.8002 #### [facility] [address] [place], [address] RBC 0 SEEN Normal 0-5 [facility] Comment on above: Order Comment: COLLE CTOR TO SPECIFY Performed By: #### L 100.0100, BTS, L3890.6006, L501.0250, L509.8002 #### [facility] [address] [place], [address] Vital Signs Date Time Vital Sign Value Performing Clinician Deondre maurer 06-21-2025 10:03-0400 Body height 162.[address] Lionel Cruz PA-C Work Phone: [facility] 06-21-2025 10:03-0400 Body mass index (BMI) [Ratio] 40.4 kg/m2 Dr. Lionel Cruz PA-C Work Phone: [facility] 06-21-2025 10:03-0400 Body weight 106.[address] Lionel Cruz PA-C Work Phone: [facility] 06-21-2025 10:03-0400 Diastolic blood pressure 76 mm[Hg] Dr. Lionel Cruz PA-C Work Phone: [facility] 06-21-2025 10:03-0400 Systolic blood pressure 124 mm[Hg] Dr. Lionel Cruz PA-C Work Phone: [facility] 06-14-2025 10:51-0400 Body height 162.[address] Lionel Cruz PA-C Work Phone: [facility] 06-14-2025 10:50-0400 Body mass index (BMI) [Ratio] 40.4 kg/m2 Dr. Lionel Cruz PA-C Work Phone: [facility] 06-14-2025 10:50-0400 Body weight 106.[address] Lionel Cruz PA-C Work Phone: [facility] 06-14-2025 10:50-0400 Diastolic blood pressure 73 mm[Hg] Dr. Lionel Cruz PA-C Work Phone: [facility] 06-14-2025 10:50-0400 Systolic blood pressure 121 mm[Hg] Dr. Lionel Cruz PA-C Work Phone: [facility] 06-08-2025 09:54-0400 Body height 162.[address] Lionel Cruz PA-C Work Phone: [facility] 06-08-2025 09:54-0400 Body mass index (BMI) [Ratio] 40.4 kg/m2 Dr. Lionel Cruz PA-C Work Phone: [facility] 06-08-2025 09:54-0400 Body weight 106.[address] Lionel Cruz PA-C Work Phone: [facility] 06-08-2025 09:54-0400 Diastolic blood pressure 76 mm[Hg] Dr. Lionel Cruz PA-C Work Phone: [facility] 06-08-2025 09:54-0400 Systolic blood pressure 111 mm[Hg] Dr. Lionel Cruz PA-C Work Phone: [facility] 05-27-2025 09:46-0400 Body height 162.[address] Lionel Cruz PA-C Work Phone: [facility] 05-27-2025 09:46-0400 Body mass index (BMI) [Ratio] 40.6 kg/m2 Dr. Lionel Cruz PA-C Work Phone: [facility] 05-27-2025 09:46-0400 Body weight 107.[address] Lionel Cruz PA-C Work Phone: [facility] 05-27-2025 09:46-0400 Diastolic blood pressure 85 mm[Hg] Dr. Lionel Cruz PA-C Work Phone: [facility] 05-27-2025 09:46-0400 Systolic blood pressure 133 mm[Hg] Dr. Lionel Cruz PA-C Work Phone: [facility] 05-10-2025 10:21-0400 Body height 162.[address] Lionel Cruz PA-C Work Phone: [facility] 05-10-2025 10:20-0400 Body mass index (BMI) [Ratio] 40.1 kg/m2 Dr. Lionel Cruz PA-C Work Phone: [facility] 05-10-2025 10:20-0400 Body weight 106.[address] Lionel Cruz PA-C Work Phone: [facility] 05-10-2025 10:20-0400 Diastolic blood pressure 78 mm[Hg] Dr. Lionel Cruz PA-C Work Phone: [facility] 05-10-2025 10:20-0400 Systolic blood pressure 120 mm[Hg] Dr. Lionel Cruz PA-C Work Phone: [facility] 04-26-2025 10:18-0400 Body height 162.[address] Lionel Cruz PA-C Work Phone: [facility] 04-26-2025 10:18-0400 Body mass index (BMI) [Ratio] 39.6 kg/m2 Dr. Lionel Cruz PA-C Work Phone: [facility] 04-26-2025 10:18-0400 Body weight 104.[address] Lionel Cruz PA-C Work Phone: [facility] 04-26-2025 10:18-0400 Diastolic blood pressure 83 mm[Hg] Dr. Lionel Cruz PA-C Work Phone: [facility] 04-26-2025 10:18-0400 Systolic blood pressure 126 mm[Hg] Dr. Lionel Cruz PA-C Work Phone: [facility] 04-14-2025 15:33-0400 Body height 162.[address] Lionel Cruz PA-C Work Phone: [facility] 04-14-2025 15:33-0400 Body mass index (BMI) [Ratio] 39.9 kg/m2 Dr. Lionel Cruz PA-C Work Phone: [facility] 04-14-2025 15:33-0400 Body weight 105.[address] Lionel Cruz PA-C Work Phone: [facility] 04-14-2025 15:33-0400 Diastolic blood pressure 69 mm[Hg] Dr. Lionel Cruz PA-C Work Phone: [facility] 04-14-2025 15:33-0400 Systolic blood pressure 116 mm[Hg] Dr. Lionel Cruz PA-C Work Phone: [facility] 03-09-2025 13:51-0400 Body height 162.[address] Lionel Cruz PA-C Work Phone: [facility] 03-09-2025 13:51-0400 Body mass index (BMI) [Ratio] 40 kg/m2 Dr. Lionel Cruz PA-C Work Phone: [facility] 03-09-2025 13:51-0400 Body weight 105.[address] Lionel Cruz PA-C Work Phone: [facility] 03-09-2025 13:51-0400 Diastolic blood pressure 82 mm[Hg] Dr. Lionel Cruz PA-C Work Phone: [facility] 03-09-2025 13:51-0400 Systolic blood pressure 134 mm[Hg] Dr. Lionel Cruz PA-C Work Phone: [facility] 02-15-2025 13:08-0400 Body height 162.[address] Lionel Cruz PA-C Work Phone: [facility] 02-15-2025 13:08-0400 Body mass index (BMI) [Ratio] 40 kg/m2 Dr. Lionel Cruz PA-C Work Phone: [facility] 02-15-2025 13:08-0400 Body weight 105.[address] Lionel Cruz PA-C Work Phone: [facility] 02-15-2025 13:08-0400 Diastolic blood pressure 82 mm[Hg] Dr. Lionel Cruz PA-C Work Phone: [facility] 02-15-2025 13:08-0400 Systolic blood pressure 132 mm[Hg] Dr. Lionel Cruz PA-C Work Phone: [facility] 01-17-2025 10:12-0400 Body height 162.[address] Lionel Cruz PA-C Work Phone: [facility] 01-17-2025 10:12-0400 Body mass index (BMI) [Ratio] 39.3 kg/m2 Dr. Lionel Cruz PA-C Work Phone: [facility] 01-17-2025 10:12-0400 Body weight 103.[address] Lionel Cruz PA-C Work Phone: [facility] 01-17-2025 10:12-0400 Diastolic blood pressure 81 mm[Hg] Dr. Lionel Cruz PA-C Work Phone: [facility] 01-17-2025 10:12-0400 Systolic blood pressure 131 mm[Hg] Dr. Lionel Cruz PA-C Work Phone: [facility] Encounters Encounter Date Encounter Type Care Provider Facility Start: 06-21-2025 End: 06-21-[address] Lionel Cruz PA-C Work Phone: -[facility] Start: 06-21-2025 End: 06-21-2025 Patient encounter procedure Nori Lomeli CNM -[facility] Work Phone: Start: 06-14-2025 End: 06-14-[address] Tiffani Ansari MD -[facility] Work Phone: Start: 06-14-2025 End: 06-14-[address] Lionel Cruz PA-C Work Phone: -[facility] Start: 06-08-2025 End: 06-08-2025 Patient encounter procedure Beti AUGUSTE -[facility] Work Phone: Start: 06-08-2025 End: 06-08-[address] Lionel Cruz PA-C Work Phone: -[facility] Start: 05-27-2025 End: 05-27-[address] Lionel Cruz PA-C Work Phone: -Ultrasound [facility] Start: 05-27-2025 End: 05-27-[address] Tiffani Ansari MD -Ultrasound [facility] Work Phone: Start: 05-27-2025 End: 05-27-2025 Patient encounter procedure Jen Gerber CNM -[facility] Work Phone: Start: 05-27-2025 End: 05-27-[address] Lionel Cruz PA-C Work Phone: -[facility] Start: 05-27-2025 End: 05-27-2025 ambulatory Lionel Crzu Facility:[facility] Start: 05-10-2025 End: 05-10-[address] Natalie Shelton DO -[facility] Work Phone: Start: 05-10-2025 End: 05-10-[address] Lionel Cruz PA-C Work Phone: -[facility] Start: 05-10-2025 End: 05-10-2025 ambulatory Natalie Shelton Facility:[facility] Start: 04-26-2025 End: 04-26-[address] Tiffani Ansari MD -[facility] Work Phone: Start: 04-26-2025 End: 04-26-[address] Lionel Cruz PA-C Work Phone: -[facility] Start: 04-26-2025 End: 04-26-2025 ambulatory Lionel Cruz Facility:[facility] Start: 04-14-2025 End: 04-14-2025 Patient encounter procedure Nori Lomeli CNM -[facility] Work Phone: Start: 04-14-2025 End: 04-14-[address] Lionel Cruz PA-C Work Phone: -[facility] Start: 03-09-2025 End: 03-09-2025 Patient encounter procedure Beti AUGUSTE -[facility] Work Phone: Start: 03-09-2025 End: 03-09-[address] Lionel Cruz PA-C Work Phone: [facility] Work Phone: Start: 03-09-2025 End: 03-09-2025 ambulatory Beti Crane COLD ROLLING MACHINE SETTER Facility:[facility] Start: 02-15-2025 End: 02-15-[address] Lionel Cruz PA-C Work Phone: [facility] Work Phone: Start: 02-15-2025 End: 02-15-2025 Patient encounter procedure Beti Claross COLD ROLLING MACHINE SETTER-C -Laboratory Specimen Work Phone: Start: 02-15-2025 End: 02-15-2025 Patient encounter procedure Beti Donovantings COLD ROLLING MACHINE SETTER-C -[facility] Work Phone: Start: 02-15-2025 End: 02-15-[address] Lionel Cruz PA-C Work Phone: [facility] Work Phone: Start: 02-15-2025 End: 02-15-2025 ambulatory Beti Moore COLD ROLLING MACHINE SETTER Facility:[facility] Start: 01-17-2025 End: 01-17-[address] Lionel Cruz PA-C Work Phone: [facility] Work Phone: Start: 01-17-2025 End: 01-17-[address] Natalie Shelton DO -Lab, [facility] Start: 01-17-2025 End: 01-17-[address] Natalie Shelton DO -[facility] Work Phone: Start: 01-17-2025 End: 01-17-2025 ambulatory Natalie Shelton [facility] Start: 01-17-2025 End: 01-17-2025 ambulatory Natalie Shelton Facility:[facility] Start: 08-09-2024 End: 08-10-2024 Evaluation and management of inpatient Lionelildefonso Cruz Facility:[facility] Start: 08-09-2024 ambulatory Lionel Cruz Facility:[facility] Procedures Date Procedure Procedure Detail Performing Clinician Start: 05-27-2025 Ultrasound scan for growth Dr. Lionel Cruz PA-C Work Phone: Start: 04-26-2025 Serologic test for syphilis Dr. Lionel Cruz PA-C Work Phone: Start: 03-09-2025 Ultrasonography in f irst trimester Dr. Lionel Cruz PA-C Work Phone: Start: 01-17-2025 Liquid based cervica l cytology screening Dr. Lionel Cruz PA-C Work Phone: Comment on above: NEGATIVE FOR INTRAEP ITHELIAL LESION OR MALIGNANCY. This liquid based Th inPrep(R) pap test was screened withthe use of an image guided system. Start: 01-17-[address] Lionel Cruz PA-C Work Phone: Start: 01-17-2025 Hepatitis C antibody measurement Dr. Lionel Cruz PA-C Work Phone: Comment on above: Reactive: Presumptiv e evidence of antibodies to HCV. Follow CDC recommendations for supplemental testing.Non-Reactive: Antibodies to HCV were not detected; does not exclude the possibility of exposure to HCVReactive Results are presumptive evidence of antibodies to HCV. Follow CDC recommendations for supplemental testing.Order confirmation testing: HCV Quant by PCR testing - HCVPCR #[id number] Non Reactive: < 0.8 Equivocal: >/= 0.8 to < 1.0 Reactive: >/= 1.0The CDC requires that a reactive/equivocal HCV antibody result be sent out for confirmation. HCV Quant by PCR testing. Start: 01-17-[address] Lionel Cruz PA-C Work Phone: Comment on above: Antibody Result: Int erpretationNon-Reactive: Non- ImmuneReactive: ImmuneThe following results were obtained with the [employer] Rubella IgG assay. Results from assays of other manufacturers cannot be used interchangeably. Start: 01-17-2025 Serologic test for syphilis Dr. Lionel Cruz PA-C Work Phone: Plan of Treatment Date Care Activity Detail Author Start: 07-22-2025 ambulatory Ambulatory Facility:[facility] Start: 05-10-2025 [facility] Start: 04-26-2025 CBC W Auto Different ial panel - Blood [facility] Start: 04-26-2025 Measurement of gluco se 2 hours after glucose challenge for glucose tolerance test [facility] Start: 04-26-2025 Serologic test for syphilis [facility] Start: 04-26-2025 [facility] Start: 01-17-2025 Liquid based cervica l cytology screening [facility] CBC W Auto Different ial panel - Blood [facility] Comprehensive metabo lic 2000 panel - Serum or Plasma [facility] Cytology report of C ervical or vaginal smear or scraping Cyto stain.thin prep [facility] Erythrocyte mean cor puscular volume determination [facility] Hematocrit [Volume F raction] of Blood [facility] Hemoglobin [Mass/vol ume] in Blood [facility] Leukocytes [#/volume] in Blood [facility] Mean corpuscular hem oglobin concentration determination [facility] Mean corpuscular hem oglobin determination [facility] Measurement of gluco se 2 hours after glucose challenge for glucose tolerance test [facility] Neutrophil count [facility] Neutrophil percent d ifferential count [facility] Path report.final Dx Spec [facility] Platelets [#/volume] in Blood [facility] Protein/Creatinine [ Ratio] in Urine [facility] Protein/Creatinine [ Ratio] in Urine [facility] Red blood cell count [facility] Red cell distributio n width determination [facility] Serologic test for syphilis [facility] Ultrasonography in f irst trimester [facility] Ultrasound scan for growth [facility] Payers Date Payer Category Payer Unknown [id number] 2025 Unknown UNKNOWN [id number] 2024 Self-pay 2024 Unknown 0 [id number] Unknown [id number] 2.16.8 [id number] Unknown [id number] 2.16.8 [id number] Unknown [id number] 2.16.8 40.1.498449.3.579.2.462 Unknown [id number] 2.16.8 40.1.330768.3.579.2.462 Unknown [id number] 2.16.8 40.1.445706.3.579.2.462 Unknown [id number] 2.16.8 40.1.464207.3.579.2.462 Unknown [id number] 2.16.8 40.1.949155.3.579.2.462 Unknown [id number] 2.16.8 40.1.446787.3.579.2.462 Unknown [id number] 2.16.8 40.1.523753.3.579.2.462 Unknown [id number] 2.16.8 40.1.665241.3.579.2.462 Unknown [id number] 2.16.8 40.1.278734.3.579.2.462 Unknown [id number] 2.16.8 40.1.603195.3.579.2.462 Unknown [id number] 2.16.8 40.1.828503.3.579.2.462 Unknown [id number] 2.16.8 40.1.431832.3.579.2.462 Unknown [id number] 2.16.8 40.1.681080.3.579.2.462 Unknown [id number] 2.16.8 40.1.406513.3.579.2.462 Unknown [id number] 2.16.8 40.1.427073.3.579.2.462 Unknown [id number] 2.16.8 40.1.963032.3.579.2.462 Social History Date Type Detail Facility Start: 01-14-2025 Tobacco smoking stat us NEIS Never smoked tobacco (finding) [facility] Start: 01-20-2025 Sex Female (finding) [facility] Start: 1980 Sex Assigned At Female [facility] Clinical Notes 01-17-2025 to 06-21-2025 Note Date & Type Note Facility 06-21-2025 Progress note [facility] 06-08-2025 Progress note [facility] 05-27-2025 Radiology Diagnostic study note [facility] Imaging Services [address] [place], [place] [address] OB Limited With Biometrics MR#: [id number] Acct: [id number] Name: NITZA PASTRANA Rep #: [id number] : 1980 F 44 From: Timothy Castro MD PCP: Lionel Cruz PA-C Status: REG CLI Study:OB Limited With Biometrics Date of Exam : 05/27/25 Exam# [id number] Ordering Dr: Tiffani Collins MD PROCEDURE: OB LIMITED WITH BIOMETRICS 05/27/2025 REASON FOR EXAM: GROWTH TECHNIQUE: OB LIMITED WITH BIOMETRICS COMPARISON: Prior study dated March 09, 2025. FINDINGS Number: 1 Position: Breech Placental Position: Anterior and not low-lying Placental Abnormalities: No evidence of previa. DIMENSIONS: Biparietal Diameter: 8.48 cm: 34 weeks and 1 day: 93rd percentile/ Head Circumference: 31.78 cm: 35 weeks and 5 days: 95th percentile/ Abdominal Circumference: 29.14 cm: 33 weeks and 1 day: 80 percentile/ Femur Length: 5.93 cm: 31 weeks and 0 days: 13 percentile/ ESTIMATED WEIGHT: 2041 g plus/-306 g ESTIMATED WEIGHT PERCENTILE (24+ weeks): 63rd ESTIMATED GESTATIONAL AGE: Baseline: 32 weeks and 0 days By Ultrasound: 34 weeks and 5 days ESTIMATED DATE OF DELIVERY: Baseline: July 22, 2025 By Ultrasound: July 03, 2025 BIOPHYSICAL ASSESSMENT: Amniotic Fluid Volume: 5.8 cm Amniotic Fluid Index: 10.8 cm (8-24 cm normal range) Cardiac Motion: 143 beats per min (average) Trunk and Limb Motion: Present. MATERNAL ANATOMY: Adnexa: Neither maternal ovary is successfully identified. Cervical Length (if measured): 4.1 cm US/OB Limited With Biometrics IMPRESSION: Single live intrauterine gestation with a mean gestational age of 32 weeks and 2days. The measurements obtained today fall within normal expected range. Reading Location: [id number] CC: KALPANA Cruz; Dr. Tiffani Ansari MD ~ Bow Tacker: Signed [facility] 05-10-2025 Progress note [facility] 04-14-2025 Progress note [facility] 04-14-2025 Progress note Note Date/Time April 14, 2025 3:58pm [facility] [address], [address] [place] [address] OFFICE VISIT Date of Service: 04/14/25 MR#: [id number] Acct: [id number] Name: NITZA PASTRANA Rep #: [id number] : 1980 Provider: ROSEMARY Lomeli Age/Sex: 44/F Location: [facility] Status: Signed Intake Vital Signs 02/15/25 13:08 03/09/25 13:51 04/14/25 15:33 Height 5 ft 4 in 5 ft 4 in 5 ft 4 in Weight: 232 lb 6 oz BMI 39.9 BP 116/69 Intake Visit Reasons: 25 wk ob Chief Complaint: 25wk ob Video Surveillance Technician Required: No Is patient in pain?: No Allergies No Known Allergies Allergy (Verified 04/14/25 15:32) Medications ?Medication ?Instructions ?Recorded ?Confirmed ?Type chromium 1,000 mcg tablet See Rx Instructions PO QDAY 01/14/25 04/14/25 History multivit-min no.71-iron fum 28 cap PO 01/14/25 5 History mg-folate no.1 1 mg-dha 300 mg capsule (PNV-Zwolle) ondansetron HCl 4 mg tablet 4 mg PO Q6H PRN nausea and 01/17/25 04/14/25 Rx vomiting #60 tabs Last Menstrual Period: 10/15/24 : No PFSH PFSH Medical History PCOS (polycystic ovarian syndrome) demise before 20 weeks with retention of fetus Retained placenta Gestational diabetes Surgical History H/O dilation and curettage History of surgery Family History Mother Cancer, Onset Age: 65 Leukemia- chronic Sister Cancer, Onset Age: 17 Lymphoma x2 Social History adopted: No household members: spouse and children housing: house number of children: 5 current occupational status: employed and unemployed current occupation: [employer] current occupational exposures/hazards: No pets and animals: Yes (chickens, cows) pets and animals: farm animals history of recent travel: No sexually active: Yes Smoking Status: Never smoker alcohol intake: never substance use type: does not use diet: diabetic well-balanced diet: daily or most days caffeine: No eating out: rarely or never during the past year weight has: remained stable what type of physical activity do you participate in: walking frequency: daily duration: < 15 minutes/day song/sikh: Confucianism seatbelt use: sometimes do you feel safe at home: Yes additional social history: - Jomar Singh History 6 Elective abortions Hx Para 3 Spontaneous abortions 2 Hx # Term Pregnancies Ectopic pregnancies Hx # Pregnancies Multiple births # of living children 3 Past Pregnancies Del. Date Name GA/Weeks Outcome Route Bth Weight Infant Gen Labor Lgth Anesthesia Del Locatn Provider FOB Unknown 10/2014 9 spontaneous Unknown adopted Oly (20yo) Unknown adopted Sohail(13yo) 12/13/16 Jose Juan Hadley 40 live - full term 7# Male none Henrik Pauline Jomar 07/04/19 Pérez 40 live - full term 9# Male Home Jomar 08/14/21 Sina 38 live - full term 8# Male Home Jomar 08/10/24 [facility] 19 still Male none [facility] SM Delivery Date: Last Updated by: Sonya Courtney D&C Delivery Date: 12/13/16 Last Updated by: Sonya Courtney IOL post date Delivery Date: 07/04/19 Last Updated by: Sonya Courtney PUPS Delivery Date: 08/10/24 Last Updated by: Terra Bains, RN See problem list for complications, and ? diabetes, anora testing sent, & D and C done for retained placenta HPI 25 wk ob Details: NITZA PASTRANA is a 44 year old who presents for routine OB visit. OB Visit DC Calculator Estimated Delivery Date Method Current WG Current Estimate 07/22/25 LMP (Certain) 25w 6d Expected Delivery Route/Plan Labor Preferences- CB/BF classes: [] labor support person: [] labor intervention preferences: [] pain management options preferred: [] cut cord/dad catch: [] : [] PP control planned: [] discussed possible routes of delivery and associated risks: [] special requests: [] Specific Issue/Plans Covid status: [] Flu vaccine: [] Tdap vaccine: [] Rhogam: [] LARC form signed: [] Problem list reviewed and updated with the most current plan of care details and appropriate orders placed. Relevant counseling for the gestational age provided. Continue routine care and follow up unless otherwise noted in visit notes/problem list details Initial Weight: Not Recorded Date -?-?-?-?-?-?-?-?-?-?-?-?- EGA Weight BP Urine Prot -?-?-?-?-?-?-?-?-?-?-?-?- Glucose FHR FuHt Pres Dilation -?-?-?-?-?-?-?-?-?-?-?-?- Effaced St Visit Note 01/17/25 -?-?-?-?-?-?-?-?-?-?-?-?- 13w 3d 229 lb 131/81 -?-?-?-?-?-?-?-?-?-?-?-?- 150 -?-?-?-?-?-?-?-?-?-?-?-?- JV- CRL consiste nt with LMP> patient declines NIPT despite AMA. plan for MFM anatomy scan. 02/15/25 -?-?-?-?-?-?-?-?-?-?-?-?- 17w 4d 233 lb 2 oz 132/82 Nega tive -?-?-?-?-?-?-?-?-?-?-?-?- Negative 151 -?-?-?-?-?-?-?-?-?-?-?-?- MH-no VB. Nano crum. Getting baseline P/C ratio today as was unable to do with NOB labs. She will RTO 3 weeks inorder to save on drivers with US anatomy 03/09/25 -?-?-?-?-?-?-?-?-?-?-?-?- 20w 5d 233 lb 4 oz 134/82 Nega tive -?-?-?-?-?-?-?-?-?-?-?-?- Negative 154 -?-?-?-?-?-?-?-?-?-?-?-?- MH-No VB. Quentin Gerard Mcdonald. Has glucose monitor at home and checked FBS and a couple >100 but she doesn't always go 8 hr for fasting. Discussed this, diet. She is checking because of issues in last . She will call w abnormal readings. 04/14/25 -?-?-?-?-?-?-?-?-?-?-?-?- 25w 6d 232 lb 6 oz 116/69 Nega tive -?-?-?-?-?-?-?-?-?-?-?-?- Negative 154 -?-?-?-?-?-?-?-?-?-?-?-?- KW- no vb/lof/ct x. good fm. adding high protein snack in the evenings to help with fasting numbers- around 100. will bring in numbers next visit and plans to do the 1 hour gct ACOG First Trimester First Trimester: Discussed ROS Const Reports system reviewed and no additional complaints, except as documented Eyes Reports system reviewed and no additional complaints, except as documented ENT Reports system reviewed and no additional complaints, except as documented Card Reports system reviewed and no additional complaints, except as documented Resp Reports system reviewed and no additional complaints, except as documented GI Reports system reviewed and no additional complaints, except as documented, Denies nausea and Denies vomiting Reports system reviewed and no additional complaints, except as documented Musc Reports system reviewed and no additional complaints, except as documented Skin/Breast Reports system reviewed and no additional complaints, except as documented Neuro Yes system reviewed and no additional complaints, except as documented Psych Reports system reviewed and no additional complaints, except as documented Endo Reports system reviewed and no additional complaints, except as documented Naman/Lymph Reports system reviewed and no additional complaints, except as documented Aller/Immun Reports system reviewed and no additional complaints, except as documented Exam Const General: cooperative, healthy appearing and no acute distress Orientation: alert, awake and oriented x3 Neck Neck: normal visual inspection and full ROM Resp Effort & Inspection: normal respiratory effort, able to speak in complete sentences and symmetric chest movement GI Inspection: normal to inspection Palpation: soft and other Other: gravid Skin General: no rashes or lesions noted Neuro General: patient alert, patient awake and patient oriented x3 Cognition: normal cognition Speech: speech normal Gait: normal gait Motor: muscle tone normal throughout Extrem General: normal to inspection and full ROM Psych Appearance: grossly normal Mental Status: mental status grossly normal Mood: congruent mood Affect: normal affect Speech and Movement: speech and movement normal Attitude: cooperative Thought Process: normal Thought Content: normal Judgment: judgment good Results POC Urinalysis 2 Dip (Clinic) Office Urine Glucose Negative Last Edit by Jalyn Lara on 04/14/25 15:42 Office Urine Protein Negative Last Edit by Jalyn Lara on 04/14/25 15:42 Coding Level of Care Code OB Routine Diagnoses Low-lying placenta O44.40 FH: Down syndrome Z82.79 Obesity affecting in second trimester, unspecified obesity type O99.212 Obesity type affecting : unspecified obesity Trimester: second trimester Mild anxiety F41.9 Hypertension, unspecified type I10 Hypertension type: unspecified Supervision of high risk in second trimester O09.92 Trimester: second trimester 25 weeks gestation of Z3A.25 Weeks of gestation: 25 weeks History of miscarriage, currently O09.299 Rh negative state in antepartum period O26.899; Z67.91 AMA (advanced maternal age) multigravida 35+ O09.529 Assessment and Plan Assessment and Plan (1) Low-lying placenta: Status: Acute Comment: [facility] will rescan 28 weeks (2) FH: Down syndrome: Status: Acute Comment: Pt Nephew (3) Obesity affecting : Status: Acute Qualifiers: Obesity type affecting : unspecified obesity Trimester: second trimester Qualified Code(s): O99.212 - Obesity complicating , second trimester Comment: [id number] (4) Mild anxiety: Status: Acute (5) HTN (hypertension): Status: Chronic Qualifiers: Hypertension type: unspecified Qualified Code(s): I10 - Essential (primary) hypertension Comment: Pt reports a little on the high side- baseline pih labs at [facility] ob (6) Supervision of high-risk : Status: Acute Qualifiers: Trimester: second trimester Qualified Code(s): O09.92 - Supervision of high risk , unspecified, second trimester Comment: PRR , DC 07/22/25, PC Oly & Sohail(adopted), Pérez Medina Matthew, ([facility]-19 wk demise), Jomar (7) : Status: Acute Qualifiers: Weeks of gestation: 25 weeks Qualified Code(s): Z3A.25 - 25 weeks gestation of Comment: discussed NIPT & [facility] testing-undecided (8) History of miscarriage, currently : Status: Acute Comment: [id number] 9 wk miscarriage, demise @ 19wks 08/2024 (9) Rh negative state in antepartum period: Status: Acute (10) AMA (advanced maternal age) multigravida 35+: Status: Acute Orders: Orders POC Urinalysis 2 Dip (Clinic) Today POC Urinalysis 2 Dip (Clinic) Today Type & Screen Today CBC W/Diff, Automated Today O09.92 - Supervision of high risk , unspecified, second trimester, Z3A.25 - 25 weeks gestation of Glucose Challenge Gest 1H 50g Today Z13.1 - Encounter for screening for diabetes mellitus HIV Today Syphilis Antibodies Today O09.92 - Supervision of high risk , unspecified, second trimester, Z3A.25 - 25 weeks gestation of Plan Details Additional Comments: ACOG trimester education reviewed and updated. see problem list details for updated plan management information and see below for orders placed at this visit. GA appropriate handout given. 04/14/25 1558 <Electronically signed by Nori landrum CNM> Date _ Nori Lomeli CNM Cosigner Signature: Date (if applicable) CC: ~ [facility] Work Phone: 1(707) 670-827906-08-2025 Radiology Diagnostic study note [facility] Imaging Services [address] [place] [address] OB Anatomy w/ Transvaginal MR#: [id number] Acct: [id number] Name: NITZA PASTRANA Mar[place] Rep #: [id number] : 1980 F 44 From: Pet er Peer DO PCP: Lionel Cruz PA-C Status: REG CLI Study:OB Anatomy w/ Transvaginal Date of Exam : 03/09/25 Exam# [id number] Ordering Dr: Beti Moore COLD ROLLING MACHINE SETTER COLD ROLLING MACHINE SETTER-C PROCEDURE: OB ANATOMY W/ TRANSVAGINAL 03/09/2025 REASON FOR EXAM: ANATOMY TECHNIQUE: High resolution obstetric ultrasound performed using a 2D transducer. Standard views obtained, including biometry, anatomy survey, and Doppler studies. FINDINGS Number: 1 Position: Variable between breech and transverse to the right Placental Position: Anterior, low-lying, 0.5 cm from the cervix. Placental Abnormalities: Placenta grade 0 Cervical length: 3.6 cm with closed cervical os DIMENSIONS: Biparietal Diameter: 5.02 cm/21 weeks, 2 days Head Circumference: 19.24 cm/21 weeks, 3 days Abdominal Circumference: 17.14 cm/22 weeks, 1 day Femur Length: 3.36 cm/20 weeks, 4 days ESTIMATED WEIGHT: 423 g +/-64 g ESTIMATED WEIGHT PERCENTILE (24+ weeks): 81 % ESTIMATED GESTATIONAL AGE: Baseline: 20 weeks, 5 days by LMP By Ultrasound: 21 weeks, 0 days ESTIMATED DATE OF DELIVERY: Baseline: 07 22 25 By Ultrasound: 07 20 25 BIOPHYSICAL ASSESSMENT: Amniotic Fluid Volume: 6.2 cm largest vertical pocket. Amniotic Fluid Index: Not calculated (8-24 cm normal range) Cardiac Motion: 164 (average) Trunk and Limb Motion: Present. MATERNAL ANATOMY: Adnexa: Neither maternal ovary is successfully identified. Cervical Length (if measured): 3.6 cm ANATOMY: Spine: Visualized Cranium: Visualized Cerebellum: Visualized 1.93 cm Cisterna Magna: Visualized 0.62 cm Cavum Septum Pellucidi: Visualized Lateral Ventricles: Visualized. 0.86 cm Choroid Plexus: Visualized Midline Falx: Nuchal Fold: Upper Lip: Visualized Heart: Four-chamber heart visualized Ventricular Outflow Tracts: Stomach: Visualized Kidneys: Visualized Bladder: Visualized Umbilical Cord: Visualized cord insertion three-vessel cord visualized Extremities: Visualized US/OB Anatomy w/ Transvaginal IMPRESSION: Live intrauterine gestation 21 weeks, 0 days and estimated due date of 07/20/2020 Visualization of midline falx, nuchal fold and ventricular outflow tracts not recorded No gross anatomic defects. Estimated weight percentile: 81%. Reading Location: [facility]- CC: KALYANI Moore; KALPANA Cruz ~ Bow Tacker: Signed [facility]06-04-2025 Evaluation note* Diagnosis Onset Date Resolution Status Admit Date FH: Down syndrome acute March 1:48pm History of miscarriage, currently acute March 09 1:48pm Mild anxiety acute March 09 1:48pm Obesity affecting acute March 09, 2025 1:48pm acute March 09, 2025 1:48pm Rh negative state in antepartum period acute March 09, 2025 1:48pm Supervision of high-risk acute March 09, 2025 1 :48pm HTN (hypertension) chronic March 092024 1:48pm AMA (advanced maternal age) multigravida 35+ acute April 14, 2025 3:29pm FH: Down syndrome acute April 142024 3:29pm History of miscarriage, currently acute April 14 3:29pm Mild anxiety acute April 14, 2 025 3:29pm Obesity affecting acute April 14, 2025 3:29pm acute April 14 3:29pm Rh negative state in antepartum period acute April 14 3:29pm Supervision of high-risk acute April 14, 2025 3:29pm HTN (hypertension) chronic April 052024 3:29pm Low-lying placenta resolved April 052024 3:29pm AMA (advanced maternal age) multigravida 35+ acute April 26, 2025 10:04am FH: Down syndrome acute April 262024 10:04am History of miscarriage, currently acute April 26 10:04am Mild anxiety acute April 26, 2 025 10:04am Obesity affecting acute April 26, 2025 10:04am acute April 26 10:04am Rh negative state in antepartum period acute April 26 10:04am Supervision of high-risk acute April 26, 2025 10:04am HTN (hypertension) chronic April 062024 10:04am Low-lying placenta resolved April 062024 10:04am AMA (advanced maternal age) multigravida 35+ acute May 10 10:00am FH: Down syndrome acute May 10, 2025 10:00am History of miscarriage, currently acute May 10, 2 025 10:00am Mild anxiety acute May 10, 2025 10:00am Obesity affecting acute May 10, 2025 10:00am acute May 10 10:00am Rh negative state in antepartum period acute May 10 10:00am Supervision of high-risk acute May 10, 2025 10:00am HTN (hypertension) chronic May 10, 2025 10:00am Low-lying placenta resolved May 10, 2025 10:00am AMA (advanced maternal age) multigravida 35+ acute May 27 9:43am FH: Down syndrome acute May 27, 2025 9:43am History of miscarriage, currently acute May 27, 2025 9:43am Mild anxiety acute May 27, 2025 9:43am Obesity affecting acute May 27, 2025 9:43am acute May 27, 2 025 9:43am Rh negative state in antepartum period acute May 27 9:43am Supervision of high-risk acute May 27 9:43am HTN (hypertension) chronic May 27, 2025 9:43am Low-lying placenta resolved May 27, 2025 9:43am AMA (advanced maternal age) multigravida 35+ acute June 08, 2025 9:50am FH: Down syndrome acute 2024 9:50am History of miscarriage, currently acute June 9:50am Mild anxiety acute June 9:50am Obesity affecting acute June 08, 2025 9:50am acute June 08, 2025 9:50am Rh negative state in antepartum period acute June 08, 2025 9:50am Supervision of high-risk acute June 08 9:50am HTN (hypertension) chronic 2024 9:50am AMA (advanced maternal age) multigravida 35+ acute June 14, 2025 10:37am FH: Down syndrome acute [facility] 2024 10:37am History of miscarriage, currently acute June 10:37am Mild anxiety acute June 10:37am Obesity affecting acute June 14, 2025 10:37am acute June 14, 2025 10:37am Rh negative state in antepartum period acute June 14, 2025 10:37am Supervision of high-risk acute June 14 10:37am HTN (hypertension) chronic 2024 10:37am AMA (advanced maternal age) multigravida 35+ acute June 21, 2025 9:59am FH: Down syndrome acute [facility] 2024 9:59am History of miscarriage, currently acute June 9:59am Mild anxiety acute June 212024 9:59am Obesity affecting acute June 21, 2025 9:59am acute June 9:59am Rh negative state in antepartum period acute June 9:59am Supervision of high-risk acute June 21, 2025 9:59am HTN (hypertension) chronic Jun 2024 9:59am [facility] Work Phone: 1([phone]) 890-698805-13-2025 Evaluation note* Diagnosis Onset Date Resolution Status Admit Date FH: Down syndrome acute February 12:57pm History of miscarriage, currently acute February 15 12:57pm Mild anxiety acute February 15 12:57pm Obesity affecting acute February 15, 2025 12:57pm acute February 15, 2025 12:57pm Rh negative state in antepar deisy period acute February 15, 2025 1 2:57pm Supervision of high-risk acute February 15, 2025 1 2:57pm HTN (hypertension) chronic February 152024 12:57pm FH: Down syndrome acute March 1:48pm History of miscarriage, currently acute March 09 1:48pm Mild anxiety acute March 09 1:48pm Obesity affecting acute March 09, 2025 1:48pm acute March 09, 2025 1:48pm Rh negative state in antepar deisy period acute March 09, 2025 1 :48pm Supervision of high-risk acute March 09, 2025 1 :48pm HTN (hypertension) chronic March 092024 1:48pm AMA (advanced maternal age) multigravida 35+ acute April 14, 2025 3:29pm FH: Down syndrome acute April 142024 3:29pm History of miscarriage, currently acute April 14 3:29pm Low-lying placenta acute April 052024 3:29pm Mild anxiety acute April 14, 025 3:29pm Obesity affecting acute April 14, 2025 3:29pm acute April 14 3:29pm Rh negative state in antepar deisy period acute April 14, 2025 3:29pm Supervision of high-risk acute April 14, 2025 3:29pm HTN (hypertension) chronic April 052024 3:29pm AMA (advanced maternal age) multigravida 35+ acute April 26, 2025 10:04am FH: Down syndrome acute April 262024 10:04am History of miscarriage, currently acute April 26 10:04am Low-lying placenta acute April 062024 10:04am Mild anxiety acute April 26, 2 025 10:04am Obesity affecting acute April 26, 2025 10:04am acute April 26 10:04am Rh negative state in antepar deisy period acute April 26, 2025 10:04am Supervision of high-risk acute April 26, 2025 10:04am HTN (hypertension) chronic April 062024 10:04am AMA (advanced maternal age) multigravida 35+ acute May 10 10:00am FH: Down syndrome acute May 10, 2025 10:00am History of miscarriage, currently acute May 10, 2 025 10:00am Low-lying placenta acute May 10, 2025 10:00am Mild anxiety acute May 10, 2025 10:00am Obesity affecting acute May 10, 2025 10:00am acute May 10 10:00am Rh negative state in antepar deisy period acute May 10, 2025 10:00am Supervision of high-risk acute May 10, 2025 10:00am HTN (hypertension) chronic May 10, 2025 10:00am AMA (advanced maternal age) multigravida 35+ acute May 27 9:43am FH: Down syndrome acute May 27, 2025 9:43am History of miscarriage, currently acute May 27, 2025 9:43am Low-lying placenta acute May 27, 2025 9:43am Mild anxiety acute May 27, 2025 9:43am Obesity affecting acute May 27, 2025 9:43am acute May 27, 025 9:43am Rh negative state in antepar deisy period acute May 27 9:43am Supervision of high-risk acute May 27 9:43am HTN (hypertension) chronic May 27, 2025 9:43am [facility] Work Phone: 1([phone]) 653-496905-13-2025 Evaluation note* Diagnosis Onset Date Resolution Status Admit Date FH: Down syndrome acute February 12:57pm History of miscarriage, currently acute February 15 12:57pm Mild anxiety acute February 15 12:57pm Obesity affecting acute February 15, 2025 12:57pm acute February 15, 2025 12:57pm Rh negative state in antepartum period acute February 15, 2025 12:57pm Supervision of high-risk acute February 15, 2025 1 2:57pm HTN (hypertension) chronic February 152024 12:57pm FH: Down syndrome acute March 1:48pm History of miscarriage, currently acute March 09 1:48pm Mild anxiety acute March 09 1:48pm Obesity affecting acute March 09, 2025 1:48pm acute March 09, 2025 1:48pm Rh negative state in antepartum period acute March 09, 2025 1:48pm Supervision of high-risk acute March 09, 2025 1 :48pm HTN (hypertension) chronic March 092024 1:48pm AMA (advanced maternal age) multigravida 35+ acute April 14, 2025 3:29pm FH: Down syndrome acute April 142024 3:29pm History of miscarriage, currently acute April 14 3:29pm Mild anxiety acute April 14, 2 025 3:29pm Obesity affecting acute April 14, 2025 3:29pm acute April 14 3:29pm Rh negative state in antepartum period acute April 14 3:29pm Supervision of high-risk acute April 14, 2025 3:29pm HTN (hypertension) chronic April 052024 3:29pm Low-lying placenta resolved April 052024 3:29pm AMA (advanced maternal age) multigravida 35+ acute April 26, 2025 10:04am FH: Down syndrome acute April 262024 10:04am History of miscarriage, currently acute April 26 10:04am Mild anxiety acute April 26, 2 025 10:04am Obesity affecting acute April 26, 2025 10:04am acute April 26 10:04am Rh negative state in antepartum period acute April 26 10:04am Supervision of high-risk acute April 26, 2025 10:04am HTN (hypertension) chronic April 062024 10:04am Low-lying placenta resolved April 062024 10:04am AMA (advanced maternal age) multigravida 35+ acute May 10 10:00am FH: Down syndrome acute May 10, 2025 10:00am History of miscarriage, currently acute May 10, 025 10:00am Mild anxiety acute May 10, 2025 10:00am Obesity affecting acute May 10, 2025 10:00am acute May 10 10:00am Rh negative state in antepartum period acute May 10 10:00am Supervision of high-risk acute May 10, 2025 10:00am HTN (hypertension) chronic May 10, 2025 10:00am Low-lying placenta resolved May 10, 2025 10:00am AMA (advanced maternal age) multigravida 35+ acute May 27 9:43am FH: Down syndrome acute May 27, 2025 9:43am History of miscarriage, currently acute May 27, 2025 9:43am Mild anxiety acute May 27, 2025 9:43am Obesity affecting acute May 27, 2025 9:43am acute May 27, 025 9:43am Rh negative state in antepartum period acute May 27 025 9:43am Supervision of high-risk acute May 27 9:43am HTN (hypertension) chronic May 27, 2025 9:43am Low-lying placenta resolved May 27, 2025 9:43am AMA (advanced maternal age) multigravida 35+ acute June 08, 2025 9:50am FH: Down syndrome acute 2024 9:50am History of miscarriage, currently acute June 9:50am Mild anxiety acute June 9:50am Obesity affecting acute June 08, 2025 9:50am acute June 08, 2025 9:50am Rh negative state in antepartum period acute June 08, 2025 9:50am Supervision of high-risk acute June 08 9:50am HTN (hypertension) chronic 2024 9:50am [facility] Work Phone: 1(546) 535-427605-13-2025 Evaluation note* Diagnosis Onset Date Resolution Status Admit Date FH: Down syndrome acute February 12:57pm History of miscarriage, currently acute February 15 12:57pm Mild anxiety acute February 15 12:57pm Obesity affecting acute February 15, 2025 12:57pm acute February 15, 2025 12:57pm Rh negative state in antepartum period acute February 15, 2025 12:57pm Supervision of high-risk acute February 15, 2025 1 2:57pm HTN (hypertension) chronic February 152024 12:57pm FH: Down syndrome acute March 1:48pm History of miscarriage, currently acute March 09 1:48pm Mild anxiety acute March 09 1:48pm Obesity affecting acute March 09, 2025 1:48pm acute March 09, 2025 1:48pm Rh negative state in antepartum period acute March 09, 2025 1:48pm Supervision of high-risk acute March 09, 2025 1 :48pm HTN (hypertension) chronic March 092024 1:48pm AMA (advanced maternal age) multigravida 35+ acute April 14, 2025 3:29pm FH: Down syndrome acute April 142024 3:29pm History of miscarriage, currently acute April 14 3:29pm Mild anxiety acute April 14, 2 025 3:29pm Obesity affecting acute April 14, 2025 3:29pm acute April 14 3:29pm Rh negative state in antepartum period acute April 14 3:29pm Supervision of high-risk acute April 14, 2025 3:29pm HTN (hypertension) chronic April 052024 3:29pm Low-lying placenta resolved April 052024 3:29pm AMA (advanced maternal age) multigravida 35+ acute April 26, 2025 10:04am FH: Down syndrome acute April 262024 10:04am History of miscarriage, currently acute April 26 10:04am Mild anxiety acute April 26, 2 025 10:04am Obesity affecting acute April 26, 2025 10:04am acute April 26 10:04am Rh negative state in antepartum period acute April 26 10:04am Supervision of high-risk acute April 26, 2025 10:04am HTN (hypertension) chronic April 062024 10:04am Low-lying placenta resolved April 062024 10:04am AMA (advanced maternal age) multigravida 35+ acute May 10 10:00am FH: Down syndrome acute May 10, 2025 10:00am History of miscarriage, currently acute May 10, 025 10:00am Mild anxiety acute May 10, 2025 10:00am Obesity affecting acute May 10, 2025 10:00am acute May 10 10:00am Rh negative state in antepartum period acute May 10 10:00am Supervision of high-risk acute May 10, 2025 10:00am HTN (hypertension) chronic May 10, 2025 10:00am Low-lying placenta resolved May 10, 2025 10:00am AMA (advanced maternal age) multigravida 35+ acute May 27 9:43am FH: Down syndrome acute May 27, 2025 9:43am History of miscarriage, currently acute May 27, 2025 9:43am Mild anxiety acute May 27, 2025 9:43am Obesity affecting acute May 27, 2025 9:43am acute May 27, 025 9:43am Rh negative state in antepartum period acute May 27 025 9:43am Supervision of high-risk acute May 27 9:43am HTN (hypertension) chronic May 27, 2025 9:43am Low-lying placenta resolved May 27, 2025 9:43am AMA (advanced maternal age) multigravida 35+ acute June 08, 2025 9:50am FH: Down syndrome acute 2024 9:50am History of miscarriage, currently acute June 9:50am Mild anxiety acute June 9:50am Obesity affecting acute June 08, 2025 9:50am acute June 08, 2025 9:50am Rh negative state in antepartum period acute June 08, 2025 9:50am Supervision of high-risk acute June 08, 025 9:50am HTN (hypertension) chronic 2024 9:50am AMA (advanced maternal age) multigravida 35+ acute June 14, 2025 10:37am FH: Down syndrome acute 2024 10:37am History of miscarriage, currently acute June 10:37am Mild anxiety acute June 10:37am Obesity affecting acute June 14, 2025 10:37am acute June 14, 2025 10:37am Rh negative state in antepartum period acute June 14, 2025 10:37am Supervision of high-risk acute June 14, 025 10:37am HTN (hypertension) chronic 2024 10:37am [facility] Work Phone: [phone]) 597-517304-14-2025 Evaluation note* Diagnosis Onset Date Resolution Status Admit Date FH: Down syndrome acute January 042024 10:03am History of miscarriage, currently acute January 17, 025 10:03am Mild anxiety acute January 17, 2025 10:03am Obesity affecting acute January 17, 2025 10:03am acute January 17 10:03am Rh negative state in antepar deisy period acute January 17, 2025 10:03am Supervision of high-risk acute January 17, 2025 10:03am HTN (hypertension) chronic January 17, 2025 10:03am [facility] Work Phone: 1([phone]) 954-815804-14-2025 Evaluation note* Diagnosis Onset Date Resolution Status Admit Date FH: Down syndrome acute January 042024 10:03am History of miscarriage, currently acute January 17, 025 10:03am Mild anxiety acute January 17, 2025 10:03am Obesity affecting acute January 17, 2025 10:03am acute January 17 10:03am Rh negative state in antepar deisy period acute January 17, 2025 10:03am Supervision of high-risk acute January 17, 2025 10:03am HTN (hypertension) chronic January 17, 2025 10:03am FH: Down syndrome acute February 12:57pm History of miscarriage, currently acute February 15 12:57pm Mild anxiety acute February 15 12:57pm Obesity affecting acute February 15, 2025 12:57pm acute February 15, 2025 12:57pm Rh negative state in antepar deisy period acute February 15, 2025 1 2:57pm Supervision of high-risk acute February 15, 2025 1 2:57pm HTN (hypertension) chronic February 152024 12:57pm [facility] [employer] [facility] Work Phone: 1(186) 321-178504-14-2025 Evaluation note* Diagnosis Onset Date Resolution Status Admit Date FH: Down syndrome acute January 042024 10:03am History of miscarriage, currently acute January 17, 025 10:03am Mild anxiety acute January 17, 2025 10:03am Obesity affecting acute January 17, 2025 10:03am acute January 17 10:03am Rh negative state in antepar deisy period acute January 17, 2025 10:03am Supervision of high-risk acute January 17, 2025 10:03am HTN (hypertension) chronic January 17, 2025 10:03am FH: Down syndrome acute February 12:57pm History of miscarriage, currently acute February 15 12:57pm Mild anxiety acute February 15 12:57pm Obesity affecting acute February 15, 2025 12:57pm acute February 15, 2025 12:57pm Rh negative state in antepar deisy period acute February 15, 2025 1 2:57pm Supervision of high-risk acute February 15, 2025 1 2:57pm HTN (hypertension) chronic February 152024 12:57pm FH: Down syndrome acute March 1:48pm History of miscarriage, currently acute March 09 1:48pm Mild anxiety acute March 09 1:48pm Obesity affecting acute March 09, 2025 1:48pm acute March 09, 2025 1:48pm Rh negative state in antepar deisy period acute March 09, 2025 1 :48pm Supervision of high-risk acute March 09, 2025 1 :48pm HTN (hypertension) chronic March 092024 1:48pm [employer] Work Phone: 1(364) 439-339304-14-2025 Evaluation note* Diagnosis Onset Date Resolution Status Admit Date FH: Down syndrome acute January 042024 10:03am History of miscarriage, currently acute January 17, 2 025 10:03am Mild anxiety acute January 17, 2025 10:03am Obesity affecting acute January 17, 2025 10:03am acute January 17 10:03am Rh negative state in antepar deisy period acute January 17, 2025 10:03am Supervision of high-risk acute January 17, 2025 10:03am HTN (hypertension) chronic January 17, 2025 10:03am FH: Down syndrome acute February 12:57pm History of miscarriage, currently acute February 15 12:57pm Mild anxiety acute February 15 12:57pm Obesity affecting acute February 15, 2025 12:57pm acute February 15, 2025 12:57pm Rh negative state in antepar deisy period acute February 15, 2025 1 2:57pm Supervision of high-risk acute February 15, 2025 1 2:57pm HTN (hypertension) chronic February 152024 12:57pm FH: Down syndrome acute March 1:48pm History of miscarriage, currently acute March 09 1:48pm Mild anxiety acute March 09 1:48pm Obesity affecting acute March 09, 2025 1:48pm acute March 09, 2025 1:48pm Rh negative state in antepar deisy period acute March 09, 2025 1 :48pm Supervision of high-risk acute March 09, 2025 1 :48pm HTN (hypertension) chronic March 092024 1:48pm AMA (advanced maternal age) multigravida 35+ acute April 14, 2025 3:29pm FH: Down syndrome acute April 142024 3:29pm History of miscarriage, currently acute April 14 3:29pm Low-lying placenta acute April 052024 3:29pm Mild anxiety acute April 14, 2 025 3:29pm Obesity affecting acute April 14, 2025 3:29pm acute April 14 3:29pm Rh negative state in antepar deisy period acute April 14, 2025 3:29pm Supervision of high-risk acute April 14, 2025 3:29pm HTN (hypertension) chronic April 052024 3:29pm [facility] Work Phone: 1(655) 253-491304-14-2025 Evaluation note* Diagnosis Onset Date Resolution Status Admit Date FH: Down syndrome acute January 042024 10:03am History of miscarriage, currently acute January 17, 2 025 10:03am Mild anxiety acute January 17, 2025 10:03am Obesity affecting acute January 17, 2025 10:03am acute January 17 10:03am Rh negative state in antepar deisy period acute January 17, 2025 10:03am Supervision of high-risk acute January 17, 2025 10:03am HTN (hypertension) chronic January 17, 2025 10:03am FH: Down syndrome acute February 12:57pm History of miscarriage, currently acute February 15 12:57pm Mild anxiety acute February 15 12:57pm Obesity affecting acute February 15, 2025 12:57pm acute February 15, 2025 12:57pm Rh negative state in antepar deisy period acute February 15, 2025 1 2:57pm Supervision of high-risk acute February 15, 2025 1 2:57pm HTN (hypertension) chronic February 152024 12:57pm FH: Down syndrome acute March 1:48pm History of miscarriage, currently acute March 09 1:48pm Mild anxiety acute March 09 1:48pm Obesity affecting acute March 09, 2025 1:48pm acute March 09, 2025 1:48pm Rh negative state in antepar deisy period acute March 09, 2025 1 :48pm Supervision of high-risk acute March 09, 2025 1 :48pm HTN (hypertension) chronic March 092024 1:48pm AMA (advanced maternal age) multigravida 35+ acute April 14, 2025 3:29pm FH: Down syndrome acute April 142024 3:29pm History of miscarriage, currently acute April 14 3:29pm Low-lying placenta acute April 052024 3:29pm Mild anxiety acute April 14, 2 025 3:29pm Obesity affecting acute April 14, 2025 3:29pm acute April 14 3:29pm Rh negative state in antepar deisy period acute April 14, 2025 3:29pm Supervision of high-risk acute April 14, 2025 3:29pm HTN (hypertension) chronic April 052024 3:29pm AMA (advanced maternal age) multigravida 35+ acute April 26, 2025 10:04am FH: Down syndrome acute April 262024 10:04am History of miscarriage, currently acute April 26 10:04am Low-lying placenta acute April 062024 10:04am Mild anxiety acute April 26, 2 025 10:04am Obesity affecting acute April 26, 2025 10:04am acute April 26 10:04am Rh negative state in antepar deisy period acute April 26, 2025 10:04am Supervision of high-risk acute April 26, 2025 10:04am HTN (hypertension) chronic April 062024 10:04am [facility] Work Phone: 1(128) 559-799104-14-2025 Evaluation note* Diagnosis Onset Date Resolution Status Admit Date FH: Down syndrome acute January 042024 10:03am History of miscarriage, currently acute January 17, 025 10:03am Mild anxiety acute January 17, 2025 10:03am Obesity affecting acute January 17, 2025 10:03am acute January 17 10:03am Rh negative state in antepar deisy period acute January 17, 2025 10:03am Supervision of high-risk acute January 17, 2025 10:03am HTN (hypertension) chronic January 17, 2025 10:03am FH: Down syndrome acute February 12:57pm History of miscarriage, currently acute February 15 12:57pm Mild anxiety acute February 15 12:57pm Obesity affecting acute February 15, 2025 12:57pm acute February 15, 2025 12:57pm Rh negative state in antepar deisy period acute February 15, 2025 1 2:57pm Supervision of high-risk acute February 15, 2025 1 2:57pm HTN (hypertension) chronic February 152024 12:57pm FH: Down syndrome acute March 1:48pm History of miscarriage, currently acute March 09 1:48pm Mild anxiety acute March 09 1:48pm Obesity affecting acute March 09, 2025 1:48pm acute March 09, 2025 1:48pm Rh negative state in antepar deisy period acute March 09, 2025 1 :48pm Supervision of high-risk acute March 09, 2025 1 :48pm HTN (hypertension) chronic March 092024 1:48pm AMA (advanced maternal age) multigravida 35+ acute April 14, 2025 3:29pm FH: Down syndrome acute April 142024 3:29pm History of miscarriage, currently acute April 14 3:29pm Low-lying placenta acute April 052024 3:29pm Mild anxiety acute April 14, 025 3:29pm Obesity affecting acute April 14, 2025 3:29pm acute April 14 3:29pm Rh negative state in antepar deisy period acute April 14, 2025 3:29pm Supervision of high-risk acute April 14, 2025 3:29pm HTN (hypertension) chronic April 052024 3:29pm AMA (advanced maternal age) multigravida 35+ acute April 26, 2025 10:04am FH: Down syndrome acute April 262024 10:04am History of miscarriage, currently acute April 26 10:04am Low-lying placenta acute April 062024 10:04am Mild anxiety acute April 26, 2 025 10:04am Obesity affecting acute April 26, 2025 10:04am acute April 26 10:04am Rh negative state in antepar deisy period acute April 26, 2025 10:04am Supervision of high-risk acute April 26, 2025 10:04am HTN (hypertension) chronic April 062024 10:04am AMA (advanced maternal age) multigravida 35+ acute May 10 10:00am FH: Down syndrome acute May 10, 2025 10:00am History of miscarriage, currently acute May 10, 2 025 10:00am Low-lying placenta acute May 10, 2025 10:00am Mild anxiety acute May 10, 2025 10:00am Obesity affecting acute May 10, 2025 10:00am acute May 10 10:00am Rh negative state in antepar deisy period acute May 10, 2025 10:00am Supervision of high-risk acute May 10, 2025 10:00am HTN (hypertension) chronic May 10, 2025 10:00am [facility] Work Phone: Progress note Author Natalie Shell [facility] Note Date/Time May 10, 2025 11: 11am [facility] ealt System [facility] [address] [place] [address], [address] [place] [address] OFFICE VISIT Date of Service: 05/10/25 MR#: [id number] Acct: [id number] Name: NITZA PASTRANA Rep #: [id number] : 1980 Provider: Dr. Rosa Shelton DO Age/Sex: 44/F Location: [facility] [place] Status: Signed Intake Vital Signs 03/09/25 13:51 04/26/25 10:18 05/10/25 10:20 05/10/25 10:21 Height 5 ft 4 in 5 ft 4 in 5 ft 4 in 5 ft 4 in Weight: 234 lb 1 oz BMI 40.1 BP 120/78 Intake Visit Reasons: 30wk ob Video Surveillance Technician Required: No Is patient in pain?: No Allergies No Known Allergies Allergy (Verified 05/10/25 10:20) Medications ?Medication ?Instructions ?Recorded ?Confirmed ?Type chromium 1,000 mcg tablet See Rx Instructions PO QDAY 01/14/25 05/10/25 History multivit-min no.71-iron fum 28 cap PO 01/14/25 5 History mg-folate no.1 1 mg-dha 300 mg capsule (PNV-Zwolle) ondansetron HCl 4 mg tablet 4 mg PO Q6H PRN nausea and 01/17/25 05/10/25 Rx vomiting #60 tabs Last Menstrual Period: 10/15/24 Zika: Zika virus screening: Negative : No PFSH PFSH Medical History PCOS (polycystic ovarian syndrome) demise before 20 weeks with retention of fetus Retained placenta Gestational diabetes Surgical History H/O dilation and curettage History of surgery Family History Mother Cancer, Onset Age: 65 Leukemia- chronic Sister Cancer, Onset Age: 17 Lymphoma x2 Social History adopted: No household members: spouse and children housing: house number of children: 5 current occupational status: employed and unemployed current occupation: [employer] current occupational exposures/hazards: No pets and animals: Yes (chickens, cows) pets and animals: farm animals history of recent travel: No sexually active: Yes Smoking Status: Never smoker alcohol intake: never substance use type: does not use diet: diabetic well-balanced diet: daily or most days caffeine: No eating out: rarely or never during the past year weight has: remained stable what type of physical activity do you participate in: walking frequency: daily duration: < 15 minutes/day song/sikh: Confucianism seatbelt use: sometimes do you feel safe at home: Yes additional social history: - Jomar Singh History 6 Elective abortions Hx Para 3 Spontaneous abortions 2 Hx # Term Pregnancies Ectopic pregnancies Hx # Pregnancies Multiple births # of living children 3 Past Pregnancies Del. Date Name GA/Weeks Outcome Route Bth Weight Gen Labor Lgth Anesthesia Del Locatn Provider FOB Unknown 10/2014 9 spontaneous Unknown adopted Oly (20yo) Unknown adopted Sohail(13yo) 12/13/16 Jose Juan Hadley 40 live - full term 7# Male none [place] Pauline Jomar 07/04/19 Pérez 40 live - full term 9# Male Home Jomar 08/14/21 Sina 38 live - full term 8# Male Home Jomar 08/10/24 [facility] 19 still Male none [facility] SM Delivery Date: Last Updated by: Sonya Courtney D&C Delivery Date: 12/13/16 Last Updated by: Sonya Courtney IOL post date Delivery Date: 07/04/19 Last Updated by: Sonya Courtney PUPS Delivery Date: 11/05/24 Last Updated by: Terra Bains, RN See problem list for complications, and ? diabetes, anora testing sent, & D and C done for retained placenta HPI 30wk ob Details: NITZA PASTRANA is a 44 year old who presents for routine OB visit. OB Visit DC Calculator Estimated Delivery Date Method Current WG Current Estimate 07/22/25 LMP (Certain) 29w 4d Expected Delivery Route/Plan Labor Preferences- CB/BF classes: [] labor support person: [] labor intervention preferences: [] pain management options preferred: [] cut cord/dad catch: [] : [] PP control planned: [] discussed possible routes of delivery and associated risks: [] special requests: [] Specific Issue/Plans Covid status: [] Flu vaccine: [] Tdap vaccine:declined Rhogam: [] LARC form signed: [] Problem list reviewed and updated with the most current plan of care details and appropriate orders placed. Relevant counseling for the gestational age provided. Continue routine care and follow up unless otherwise noted in visit notes/problem list details Initial Weight: 230 lb Date -?-?-?-?-?-?-?-?-?-?-?-?- EGA Weight BP Urine Prot -?-?-?-?-?-?-?-?-?-?-?-?- Glucose FHR FuHt Pres Dilation -?-?-?-?-?-?-?-?-?-?-?-?- Effaced St Visit Note 01/17/25 -?-?-?-?-?-?-?-?-?-?-?-?- 13w 3d 229 lb (-16 oz) 131/81 -?-?-?-?-?-?-?-?-?-?-?-?- 150 -?-?-?-?-?-?-?-?-?-?-?-?- JV- CRL consiste nt with LMP> patient declines NIPT despite AMA. plan for MFM anatomy scan. 02/15/25 -?-?-?-?-?-?-?-?-?-?-?-?- 17w 4d 233 lb 2 oz (+3 lb 2 oz) 132/82 Negative -?-?-?-?-?-?-?-?-?-?-?-?- Negative 151 -?-?-?-?-?-?-?-?-?-?-?-?- MH-no VB. Nano crum. Getting baseline P/C ratio today as was unable to do with NOB labs. She will RTO 3 weeks inorder to save on drivers with US anatomy 03/09/25 -?-?-?-?-?-?-?-?-?-?-?-?- 20w 5d 233 lb 4 oz (+3 lb 4 oz) 134/82 Negative -?-?-?-?-?-?-?-?-?-?-?-?- Negative 154 -?-?-?-?-?-?-?-?-?-?-?-?- MH-No VB. Quentin Mcdonald. Has glucose monitor at home and checked FBS and a couple >100 but she doesn't always go 8 hr for fasting. Discussed this, diet. She is checking because of issues in last . She will call w abnormal readings. 04/14/25 -?-?-?-?-?-?-?-?-?-?-?-?- 25w 6d 232 lb 6 oz (+2 lb 6 oz) 116/69 Negative -?-?-?-?-?-?-?-?-?-?-?-?- Negative 154 -?-?-?-?-?-?-?-?-?-?-?-?- KW- no vb/lof/ct x. good fm. adding high protein snack in the evenings to help with fasting numbers- around 100. will bring in numbers next visit and plans to do the 1 hour gct 04/26/25 -?-?-?-?-?-?-?-?-?-?-?-?- 27w 4d 231 lb 6 oz (+1 lb 6 oz) 126/83 Negative -?-?-?-?-?-?-?-?-?-?-?-?- Negative 145 29 -?-?-?-?-?-?-?-?-?-?-?-?- Sm- no vb lof go od fm no regular ctx Sm- no vb lof good fm no reg ular ctx cbc gct today too early for rhogam will give next visit 05/10/25 -?-?-?-?-?-?-?-?-?-?-?-?- 29w 4d 234 lb 1 oz (+4 lb 1 oz) 120/78 Negative -?-?-?-?-?-?--?-?-?-?-?-?- Negative 140 29 -?-?-?-?-?-?-?-?-?-?-?-?- JV- plannign 32 week scan to look at placenta placement. (was 0.5 cm from os) rhogam done today. ACOG First Trimester First Trimester: Discussed Office Procedures Injections Is this a patient provided medication?: No Office Meds RhoGAM Ultra-Filtered PLUS 1,500 unit (300 mcg) intramuscular syringe Performing Provider: Natalie Shelton DO Performing Location: [facility] Administered by: Lorna Wooten on 05/10/25 10:40 Dose Route Admin Location Dispensed Lot Number Expiration Date [facility] [employer] 1,500 unit IM right gluteus 1 ea [id number] 04/20/27 [id number] [facility] Results POC Urinalysis 2 Dip (Clinic) Office Urine Glucose Negative Last Edit by Lorna Wooten on 05/10/25 10: 35 Office Urine Protein Negative Last Edit by Lorna Wooten on 05/10/25 10: 35 Coding Level of Care Code OB Routine Diagnoses AMA (advanced maternal age) multigravida 35+ O09.529 Low-lying placenta O44.40 FH: Down syndrome Z82.79 Obesity affecting in second trimester, unspecified obesity type O99.212 Obesity type affecting : unspecified obesity Trimester: second trimester Mild anxiety F41.9 Hypertension, unspecified type I10 Hypertension type: unspecified Supervision of high risk in second trimester O09.92 Trimester: second trimester 29 weeks gestation of Z3A.29 Weeks of gestation: 29 weeks History of miscarriage, currently O09.299 Rh negative state in antepartum period O26.899; Z67.91 Assessment and Plan Assessment and Plan (1) AMA (advanced maternal age) multigravida 35+: Status: Acute (2) Low-lying placenta: Status: Acute Comment: [facility] will rescan 28 weeks (3) FH: Down syndrome: Status: Acute Comment: Pt Nephew (4) Obesity affecting : Status: Acute Qualifiers: Obesity type affecting : unspecified obesity Trimester: second trimester Qualified Code(s): O99.212 - Obesity complicating , second trimester Comment: [id number] (5) Mild anxiety: Status: Acute (6) HTN (hypertension): Status: Chronic Qualifiers: Hypertension type: unspecified Qualified Code(s): I10 - Essential (primary) hypertension Comment: Pt reports a little on the high side- baseline pih labs at [facility] (7) Supervision of high-risk : Status: Acute Qualifiers: Trimester: second trimester Qualified Code(s): O09.92 - Supervision of high risk , unspecified, second trimester Comment: PRR , [place] 07/22/25, CHIQUI [place] & Sohail(adopted), Pérez Medina Matthew, ([facility]-19 wk demise), Jomar (8) : Status: Acute Qualifiers: Weeks of gestation: 29 weeks Qualified Code(s): Z3A.29 - 29 weeks gestation of Comment: discussed NIPT & Carrier testing-undecided (9) History of miscarriage, currently : Status: Acute Comment: x2, 2014 9 wk miscarriage, demise @ 19wks 08/2024 (10) Rh negative state in antepartum period: Status: Acute Comment: Rhogam given 05/10/25 Orders: Orders POC Urinalysis 2 Dip (Clinic) Today Type & Screen Today O26.899 - Other specified related conditions, unspecified trimester, Z67.91 - Unspecified blood type, Rh negative Rhogam Injection Today O26.899 - Other specified related conditions, unspecified trimester, Z67.91 - Unspecified blood type, Rh negative 05/10/25 1111 <Electronically signed by Natalie Bartlett DO> Date _ Natalie Shelton DO Cosigner Signature: Date (if applicable) CC: ~ [facility] Work Phone: Progress note Author Beti Moore [facility] Note Date/Time June 08, 2025 10:22am [facility] [address] [place] [address], [address] [place] [address] OFFICE VISIT Date of Service: 06/08/25 MR#: [id number] Acct: [id number] Name: NITZA PASTRANA Rep #: [id number] : 1980 Provider: KALYANI Moore Age/Sex: 44/F [place] [facility] Status: Signed Intake Vital Signs 04/26/25 10:18 05/27/25 09:46 06/08/25 09:54 Height 5 ft 4 in 5 ft 4 in 5 ft 4 in Weight: 237 lb 235 lb 2 oz BMI 40.6 40.4 BP 133/85 H 111/76 Intake Visit Reasons: 34wk ob/nst Chief Complaint: 34 Week OB/NST Video Surveillance Technician Required: No Is patient in pain?: No Allergies No Known Allergies Allergy (Verified 06/08/25 09:54) Medications ?Medication ?Instructions ?Recorded ?Confirmed ?Type chromium 1,000 mcg tablet See Rx Instructions PO QDAY 01/14/25 06/08/25 History multivit-min no.71-iron fum 28 cap PO 01/14/25 5 History mg-folate no.1 1 mg-dha 300 mg capsule (PNV-Zwolle) ondansetron HCl 4 mg tablet 4 mg PO Q6H PRN nausea and 01/17/25 06/08/25 Rx vomiting #60 tabs Last Menstrual Period: 10/15/24 Zika: Zika virus screening: Negative : No PFSH PFSH Medical History PCOS (polycystic ovarian syndrome) demise before 20 weeks with retention of fetus Retained placenta Gestational diabetes Surgical History H/O dilation and curettage History of surgery Family History Mother Cancer, Onset Age: 65 Leukemia- chronic Sister Cancer, Onset Age: 17 Lymphoma x2 Social History adopted: No household members: spouse and children housing: house number of children: 5 current occupational status: employed and unemployed current occupation: [employer] current occupational exposures/hazards: No pets and animals: Yes (chickens, cows) pets and animals: farm animals history of recent travel: No sexually active: Yes Smoking Status: Never smoker alcohol intake: never substance use type: does not use diet: diabetic well-balanced diet: daily or most days caffeine: No eating out: rarely or never during the past year weight has: remained stable what type of physical activity do you participate in: walking frequency: daily duration: < 15 minutes/day song/sikh: Confucianism seatbelt use: sometimes do you feel safe at home: Yes additional social history: - Jomar Singh History 6 Elective abortions Hx Para 3 Spontaneous abortions 2 Hx # Term Pregnancies Ectopic pregnancies Hx # Pregnancies Multiple births # of living children 3 Past Pregnancies Del. Date Name GA/Weeks Outcome Route Bth Weight Infant Gen Labor Lgth Ane sthesia Del Locatn Provider FOB Unknown 10/2014 9 spontaneous Unknown adopted Oly (20yo) Unknown adopted Sohail(13yo) 12/13/16 Jose Juan Hadley 40 live - full term 7# Male none Henrik Mancillaman Jomar 07/04/19 Pérez 40 live - full term 9# Male Home Jomar 08/14/21 Sina 38 live - full term 8# Male Home Jomar 08/10/24 [facility] 19 still Male none [facility] SM Delivery Date: Last Updated by: Sonya Courtney D&C Delivery Date: 12/13/16 Last Updated by: Sonya Courtney IOL post date Delivery Date: 07/04/19 Last Updated by: Sonya Courtney PUPS Delivery Date: 08/10/24 Last Updated by: Terra Bains, RN See problem list for complications, and ? diabetes, anora testing sent, & D and C done for retained placenta HPI 34wk ob/nst Details: NITZA PASTRANA is a 44 year old who presents for routine OB visit. OB Visit DC Calculator Estimated Delivery Date Method Current WG Current Estimate 07/22/25 LMP (Certain) 33w 5d Expected Delivery Route/Plan Labor Preferences- CB/BF classes: no labor support person: Jomar labor intervention preferences: [] pain management options preferred: limited cut cord/dad catch: yes : yes PP control planned: [] discussed possible routes of delivery and associated risks: [] special requests: [] Specific Issue/Plans Covid status: [] Flu vaccine: [] Tdap vaccine:declined Rhogam: [] LARC form signed: [] Problem list reviewed and updated with the most current plan of care details and appropriate orders placed. Relevant counseling for the gestational age provided. Continue routine care and follow up unless otherwise noted in visit notes/problem list details Initial Weight: 230 lb Date -?-?-?-?-?-?-?-?--?-?-?-?- EGA Weight BP Urine Prot -?-?-?-?-?-?-?-?-?-?-?-?- Glucose FHR FuHt Pres Dilation -?-?-?-?-?-?-?-?-?-?-?-?- Effaced St Visit Note 01/17/25 -?-?-?-?-?-?-?-?-?-?-?-?- 13w 3d 229 lb (-16 oz) 131/81 -?-?-?-?-?-?-?-?-?-?-?-?- 150 -?-?-?-?-?-?-?-?-?-?-?-?- JV- CRL consiste nt with LMP> patient declines NIPT despite AMA. plan for MFM anatomy scan. 02/15/25 -?-?-?-?-?-?-?-?-?-?-?-?- 17w 4d 233 lb 2 oz (+3 lb 2 oz) 132/82 Negative -?-?-?-?-?-?-?-?-?-?-?-?- Negative 151 -?-?-?-?-?-?-?-?-?-?-?-?- MH-no VB. Nano crum. Getting baseline P/C ratio today as was unable to do with NOB labs. She will RTO 3 weeks inorder to save on drivers with US anatomy 03/09/25 -?-?-?-?-?-?-?-?-?-?-?-?- 20w 5d 233 lb 4 oz (+3 lb 4 oz) 134/82 Negative -?-?-?-?-?-?-?-?-?-?-?-?- Negative 154 -?-?-?-?-?-?-?-?-?-?-?-?- MH-No VB. Quentin Mcdonald. Has glucose monitor at home and checked FBS and a couple >100 but she doesn't always go 8 hr for fasting. Discussed this, diet. She is checking because of issues in last . She will call w abnormal readings. 04/14/25 -?-?-?-?-?-?-?-?-?-?-?-?- 25w 6d 232 lb 6 oz (+2 lb 6 oz) 116/69 Negative -?-?-?-?-?-?-?-?-?-?-?-?- Negative 154 -?-?-?-?-?-?-?-?-?-?-?-?- KW- no vb/lof/ct x. good fm. adding high protein snack in the evenings to help with fasting numbers- around 100. will bring in numbers next visit and plans to do the 1 hour gct 04/26/25 -?-?-?-?-?-?-?-?-?-?-?-?- 27w 4d 231 lb 6 oz (+1 lb 6 oz) 126/83 Negative -?-?-?-?-?-?-?-?-?-?-?-?- Negative 145 29 -?-?-?-?-?-?-?-?-?-?-?-?- Sm- no vb lof go od fm no regular ctx Sm- no vb lof good fm no reg ular ctx cbc gct today too early for rhogam will give next visit 05/10/25 -?-?-?-?-?-?-?-?-?-?-?-?- 29w 4d 234 lb 1 oz (+4 lb 1 oz) 120/78 Negative -?-?-?-?-?-?-?-?-?-?-?-?- Negative 140 29 -?-?-?-?-?-?-?-?-?-?-?-?- JV- plannign 32 week scan to look at placenta placement. (was 0.5 cm from os) rhogam done today. 05/27/25 -?-?-?-?-?-?-?-?-?-?-?-?- 32w 0d 237 lb (+7 lb) 133/85 Negative -?-?-?-?-?-?-?-?-?-?-?-?- Negative 155 32 -?-?-?-?-?-?-?-?-?-?-?-?- LC- no vb/ctx/lo f. has growth scan this afternoon. mild le swelling in afternoons otherwise no complaints. 06/08/25 -?-?-?-?-?-?-?-?-?-?-?-?- 33w 5d 235 lb 2 oz (+5 lb 2 oz) 111/76 Negative -?-?-?-?-?-?-?-?-?-?-?-?- Negative 140 -?-?-?-?-?-?-?-?-?-?-?-?- MH-reactive NST. No VB, LOF. Good FM. No concerns ACOG First Trimester First Trimester: Discussed Office Procedures Non-stress Test Non-Stress Test Indications for Monitoring: Yes hypertension and Yes Advanced maternal age Heart Rate Baseline: 140 Heart Rate Variability: moderate Movement: Present Heart Rate Accelerations: Present Decelerations: Absent Contractions: Absent Impression: Yes Reactive Non-Stress Test Results POC Urinalysis 2 Dip (Clinic) Office Urine Glucose Negative Last Edit by Keeley Lowe on 06/08/25 10 :03 Office Urine Protein Negative Last Edit by Keeley Lowe on 06/08/25 10 :03 Coding Level of Care Code OB Routine Diagnoses Supervision of high risk in third trimester O09.93 Trimester: third trimester 33 weeks gestation of Z3A.33 Weeks of gestation: 33 weeks Hypertension, unspecified type I10 Hypertension type: unspecified Mild anxiety F41.9 Obesity affecting in second trimester, unspecified obesity type O99.212 Obesity type affecting : unspecified obesity Trimester: second trimester FH: Down syndrome Z82.79 Multigravida of advanced maternal age in third trimester O09.523 Trimester: third trimester History of miscarriage, currently O09.299 Rh negative state in antepartum period O26.899; Z67.91 CPT Codes Non-Stress Test (15715) Assessment and Plan Assessment and Plan (1) Supervision of high-risk : Status: Acute Qualifiers: Trimester: third trimester Qualified Code(s): O09.93 - Supervision of high risk , unspecified, third trimester Comment: PRR , [place] 07/22/25, [facility] Oly & Sohail(adopted), Pérez Medina Matthew, ([facility]-19 wk demise), Jomar (2) : Status: Acute Qualifiers: Weeks of gestation: 33 weeks Qualified Code(s): Z3A.33 - 33 weeks gestation of Comment: discussed NIPT & Carrier testing-undecided (3) HTN (hypertension): Status: Chronic Qualifiers: Hypertension type: unspecified Qualified Code(s): I10 - Essential (primary) hypertension Comment: Pt reports a little on the high side- baseline pih labs at new ob (4) Mild anxiety: Status: Acute (5) Obesity affecting : Status: Acute Qualifiers: Obesity type affecting : unspecified obesity Trimester: second trimester Qualified Code(s): O99.212 - Obesity complicating , second trimester Comment: [id number] (6) FH: Down syndrome: Status: Acute Comment: Pt Nephew (7) AMA (advanced maternal age) multigravida 35+: Status: Acute Qualifiers: Trimester: third trimester Qualified Code(s): O09.523 - Supervision of elderly multigravida, third trimester Comment: normal growth at 32 weeks (8) History of miscarriage, currently : Status: Acute Comment: x2, 2014 9 wk miscarriage, demise @ 19wks 08/2024 (9) Rh negative state in antepartum period: Status: Acute Comment: Rhogam given 05/10/25 Orders: Orders OB NST Today O09.529 - Supervision of elderly multigravida, unspecified trimester POC Urinalysis 2 Dip (Clinic) Today Plan problem list reviewed and updated for most current plan of care and appropriate orders placed. Relevant counseling for the gestational age appropriate provided and ACOG education checklist updated. Continue routine care and follow up. 06/08/25 1022 <Electronically signed by Beti landrum COLD ROLLING MACHINE SETTER COLD ROLLING MACHINE SETTER-C> Date _ Beti Moore NP COLD ROLLING MACHINE SETTER-C Cosigner Signature: Date (if applicable) CC: ~ [facility] Work Phone: Progress note Author Nori Lomeli [facility] Note Date/Time June 21, 2025 10:54am [facility] [address] [place] [address], [place] [address] OFFICE VISIT Date of Service: 06/21/25 MR#: [id number] Acct: [id number] Name: NITZA PASTRANA Mariposa Rep #: [id number] : 1980 Provider: ROSEMARY Lomeli Age/Sex: 44/F Location: [facility] [place] Status: Signed with Addenda ADDENDUM by ROSEMARY Lomeli on 06/21/25 at 1053 Office Procedure Documentation entered by Nori Lomeli CNM 06/21/25 10:53: Non-stress Test Non-Stress Test Indications for Monitoring: Yes Advanced maternal age Heart Rate Baseline: 165 Heart Rate Variability: moderate Movement: Present Heart Rate Accelerations: Present Decelerations: Present Contractions: Present Impression: Yes Unsatisfactory antepartum test 06/21/25 1053 <Electronically signed by Nori Carlos s CNM> Date _ Nori Lomeli CNM cc: ~* Signed Intake Vital Signs 04/26/25 10:18 06/14/25 10:51 06/21/25 10:03 Height 5 ft 4 in 5 ft 4 in 5 ft 4 in Weight: 235 lb 8 oz BMI 40.4 BP 124/76 H Intake Visit Reasons: 36wk ob/nst Chief Complaint: 36wk OB/NST Video Surveillance Technician Required: No Is patient in pain?: No Allergies No Known Allergies Allergy (Verified 06/21/25 10:01) Medications ?Medication ?Instructions ?Recorded ?Confirmed ?Type chromium 1,000 mcg tablet See Rx Instructions PO QDAY 01/14/25 06/21/25 History multivit-min no.71-iron fum 28 cap PO 01/14/25 5 History mg-folate no.1 1 mg-dha 300 mg capsule (PNV-Zwolle) ondansetron HCl 4 mg tablet 4 mg PO Q6H PRN nausea and 01/17/25 06/21/25 Rx vomiting #60 tabs Last Menstrual Period: 10/15/24 : No PFSH PFSH Medical History PCOS (polycystic ovarian syndrome) demise before 20 weeks with retention of fetus Retained placenta Gestational diabetes Surgical History H/O dilation and curettage History of surgery Family History Mother Cancer, Onset Age: 65 Leukemia- chronic Sister Cancer, Onset Age: 17 Lymphoma x2 Social History adopted: No household members: spouse and children housing: house number of children: 5 current occupational status: employed and unemployed current occupation: [employer] current occupational exposures/hazards: No pets and animals: Yes (chickens, cows) pets and animals: farm animals history of recent travel: No sexually active: Yes Smoking Status: Never smoker alcohol intake: never substance use type: does not use diet: diabetic well-balanced diet: daily or most days caffeine: No eating out: rarely or never during the past year weight has: remained stable what type of physical activity do you participate in: walking frequency: daily duration: < 15 minutes/day song/sikh: Confucianism seatbelt use: sometimes do you feel safe at home: Yes additional social history: - Jomar Singh History 6 Elective abortions Hx Para 3 Spontaneous abortions 2 Hx # Term Pregnancies Ectopic pregnancies Hx # Pregnancies Multiple births # of living children 3 Past Pregnancies Del. Date Name GA/Weeks Outcome Route Bth Weight Infant Gen Labor Lgth Anesthesia Del Locatn Provider FOB Unknown 10/2014 9 spontaneous Unknown adopted Oly (20yo) Unknown adopted Sohail(13yo) 12/13/16 Jose Juan Hadley 40 live - full term 7# Male none Henrik Carpenter Jomar 07/04/19 Pérez 40 live - full term 9# Male Home Jomar 08/14/21 Sina 39 live - full term 8# Male Home [place] 08/10/24 [facility] 20 still Male none [facility] SM Delivery Date: Last Updated by: Sonya Courtney D&C Delivery Date: 12/13/16 Last Updated by: Sonya Courtney IOL post date Delivery Date: 07/04/19 Last Updated by: Sonya Courtney PUPS Delivery Date: 08/10/24 Last Updated by: Terra Bains, RN See problem list for complications, and ? diabetes, anora testing sent, & D and C done for retained placenta HPI 36wk ob/nst Details: NITZA PASTRANA is a 44 year old who presents for routine OB visit. OB Visit DC Calculator Estimated Delivery Date Method Current WG Current Estimate 07/22/25 LMP (Certain) 35w 4d Expected Delivery Route/Plan Labor Preferences- CB/BF classes: no labor support person: Jomar labor intervention preferences: [] pain management options preferred: limited cut cord/dad catch: yes : yes PP control planned: [] discussed possible routes of delivery and associated risks: [] special requests: [] Specific Issue/Plans Covid status: [] Flu vaccine: [] Tdap vaccine:declined Rhogam: [] LARC form signed: [] Problem list reviewed and updated with the most current plan of care details and appropriate orders placed. Relevant counseling for the gestational age provided. Continue routine care and follow up unless otherwise noted in visit notes/problem list details Initial Weight: 230 lb Date -?-?-?-?-?-?-?-?-?-?-?-?- EGA Weight BP Urine Prot -?-?-?-?-?-?-?-?-?-?-?-?- Glucose FHR FuHt Pres Dilation -?-?-?-?-?-?-?-?-?-?-?-?- Effaced St Visit Note 01/17/25 -?-?-?-?-?-?-?-?-?-?-?-?- 13w 3d 229 lb (-16 oz) 131/81 -?-?-?-?-?-?-?-?-?-?-?-?- 150 -?-?-?-?-?-?-?-?-?-?-?-?- JV- CRL consiste nt with LMP> patient declines NIPT despite AMA. plan for MFM anatomy scan. 02/15/25 -?-?-?-?-?-?-?-?-?-?-?-?- 17w 4d 233 lb 2 oz (+3 lb 2 oz) 132/82 Negative -?-?-?-?-?-?-?-?-?-?-?-?- Negative 151 -?-?-?-?-?-?-?-?-?-?-?-?- -no VB. Nano crum. Getting baseline P/C ratio today as was unable to do with NOB labs. She will RTO 3 weeks inorder to save on drivers with US anatomy 03/09/25 -?-?-?-?-?-?-?-?-?-?-?-?- 20w 5d 233 lb 4 oz (+3 lb 4 oz) 134/82 Negative -?-?-?-?-?-?-?-?-?-?-?-?- Negative 154 -?-?-?-?-?-?-?-?-?-?-?-?- MH-No VB. Quentin Gamino Has glucose monitor at home and checked FBS and a couple >100 but she doesn't always go 8 hr for fasting. Discussed this, diet. She is checking because of issues in last . She will call w abnormal readings. 04/14/25 -?-?-?-?-?-?-?-?-?-?-?-?- 25w 6d 232 lb 6 oz (+2 lb 6 oz) 116/69 Negative -?-?-?-?-?-?-?-?-?-?-?-?- Negative 154 -?-?-?-?-?-?-?-?-?-?-?-?- KW- no vb/lof/ct x. good fm. adding high protein snack in the evenings to help with fasting numbers- around 100. will bring in numbers next visit and plans to do the 1 hour gct 04/26/25 -?-?-?-?-?-?-?-?-?-?-?-?- 27w 4d 231 lb 6 oz (+1 lb 6 oz) 126/83 Negative -?-?-?-?-?-?-?-?-?-?-?-?- Negative 145 29 -?-?-?-?-?-?-?-?-?-?-?-?- Sm- no vb lof go od fm no regular ctx Sm- no vb lof good fm no reg ular ctx cbc gct today too early for rhogam will give next visit 05/10/25 -?-?-?-?-?-?-?-?-?-?-?-?- 29w 4d 234 lb 1 oz (+4 lb 1 oz) 120/78 Negative -?-?-?-?-?-?-?-?-?-?-?-?- Negative 140 29 -?-?-?-?-?-?-?-?-?-?-?-?- JV- plannign 32 week scan to look at placenta placement. (was 0.5 cm from os) rhogam done today. 05/27/25 -?-?-?-?-?-?-?-?-?-?-?-?- 32w 0d 237 lb (+7 lb) 133/85 Negative -?-?-?-?-?-?-?-?-?-?-?-?- Negative 155 32 -?-?-?-?-?-?-?-?-?-?-?-?- LC- no vb/ctx/lo f. has growth scan this afternoon. mild le swelling in afternoons otherwise no complaints. 06/08/25 -?-?-?-?-?-?-?-?-?-?-?-?- 33w 5d 235 lb 2 oz (+5 lb 2 oz) 111/76 Negative -?-?-?-?-?-?-?-?-?-?-?-?- Negative 140 -?-?-?-?-?-?-?-?-?-?-?-?- MH-reactive NST. No VB, LOF. Good FM. No concerns 06/21/25 -?-?-?-?-?-?-?-?-?-?-?-?- 35w 4d 235 lb 8 oz (+5 lb 8 oz) 124/76 Negative -?-?-?-?-?-?-?-?-?-?-?-?- Negative 165 3 -?-?-?-?-?-?-?-?-?-?-?-?- 70 -3 KW- NST sh ows tachycardia of 165-170 and regular ctx. GBS done and to WP for monitoring ACOG First Trimester First Trimester: Discussed ROS Const Reports system reviewed and no additional complaints, except as documented Eyes Reports system reviewed and no additional complaints, except as documented ENT Reports system reviewed and no additional complaints, except as documented Card Reports system reviewed and no additional complaints, except as documented Resp Reports system reviewed and no additional complaints, except as documented GI Reports system reviewed and no additional complaints, except as documented, Denies nausea and Denies vomiting Reports system reviewed and no additional complaints, except as documented Musc Reports system reviewed and no additional complaints, except as documented Skin/Breast Reports system reviewed and no additional complaints, except as documented Neuro Yes system reviewed and no additional complaints, except as documented Psych Reports system reviewed and no additional complaints, except as documented Endo Reports system reviewed and no additional complaints, except as documented Naman/Lymph Reports system reviewed and no additional complaints, except as documented Aller/Immun Reports system reviewed and no additional complaints, except as documented Exam Const General: cooperative, healthy appearing and no acute distress Orientation: alert, awake and oriented x3 Neck Neck: normal visual inspection and full ROM Resp Effort & Inspection: normal respiratory effort, able to speak in complete sentences and symmetric chest movement GI Inspection: normal to inspection Palpation: soft and other Other: gravid Skin General: no rashes or lesions noted Neuro General: patient alert, patient awake and patient oriented x3 Cognition: normal cognition Speech: speech normal Gait: normal gait Motor: muscle tone normal throughout Extrem General: normal to inspection and full ROM Psych Appearance: grossly normal Mental Status: mental status grossly normal Mood: congruent mood Affect: normal affect Speech and Movement: speech and movement normal Attitude: cooperative Thought Process: normal Thought Content: normal Judgment: judgment good Results POC Urinalysis 2 Dip (Clinic) Office Urine Glucose Negative Last Edit by Jalyn Lara on 06/21/25 10:15 Office Urine Protein Negative Last Edit by Jalyn Lara on 06/21/25 10:15 Coding Level of Care Code OB Routine Diagnoses Multigravida of advanced maternal age in third trimester O09.523 Trimester: third trimester FH: Down syndrome Z82.79 Obesity affecting in second trimester, unspecified obesity type O99.212 Obesity type affecting : unspecified obesity Trimester: second trimester Mild anxiety F41.9 Hypertension, unspecified type I10 Hypertension type: unspecified Supervision of high risk in third trimester O09.93 Trimester: third trimester 35 weeks gestation of Z3A.35 Weeks of gestation: 35 weeks History of miscarriage, currently O09.299 Rh negative state in antepartum period O26.899; Z67.91 Assessment and Plan Assessment and Plan (1) AMA (advanced maternal age) multigravida 35+: Status: Acute Qualifiers: Trimester: third trimester Qualified Code(s): O09.523 - Supervision of elderly multigravida, third trimester Comment: normal growth at 32 weeks (2) FH: Down syndrome: Status: Acute Comment: Pt Nephew (3) Obesity affecting : Status: Acute Qualifiers: Obesity type affecting : unspecified obesity Trimester: second trimester Qualified Code(s): O99.212 - Obesity complicating , second trimester Comment: [id number]. Weekly NSTs with growth US every 4w (4) Mild anxiety: Status: Acute (5) HTN (hypertension): Status: Chronic Qualifiers: Hypertension type: unspecified Qualified Code(s): I10 - Essential (primary) hypertension Comment: Pt reports a little on the high side- baseline pih labs at new ob (6) Supervision of high-risk : Status: Acute Qualifiers: Trimester: third trimester Qualified Code(s): O09.93 - Supervision of high risk , unspecified, third trimester Comment: PRR , DC 07/22/25, [facility] [employer](adopted), P[facility]rez Medina Matthew, (Joel-19 wk demise), Jomar (7) : Status: Acute Qualifiers: Weeks of gestation: 35 weeks Qualified Code(s): Z3A.35 - 35 weeks gestation of Comment: discussed NIPT & Carrier testing-undecided (8) History of miscarriage, currently : Status: Acute Comment: x2, 2014 9 wk miscarriage, demise @ 19wks 08/2024 (9) Rh negative state in antepartum period: Status: Acute Comment: Rhogam given 05/10/25 Orders: Orders POC Urinalysis 2 Dip (Clinic) Today OB NST Today O09.523 - Supervision of elderly multigravida, third trimester, O99.212 - Obesity complicating , second trimester Plan Details Additional Comments: ACOG trimester education reviewed and updated. see problem list details for updated plan management information and see below for orders placed at this visit. GA appropriate handout given. 06/21/25 1049 <Electronically signed by Nori landrum CNM> Date _ Nori Lomeli CNM Cosigner Signature: Date (if applicable) CC: ~ [employer] Work Phone: Reason for referral (narrative)No reason for referral information availableWKindred [facility] Work Phone: Summary Purpose Family History Relationship Condition Age at Onset Recorded Date/T ness mother Malignant neoplasm 65 sister Malignant neoplasm 17 Advance Directives No Advanced Directives Records FoundNo Advanced Directives Records Found Chief Complaint and Reason for Visit Chief Complaint Admit Date 13wk LMP 10/15January 17, 2025 10: 03am Reason for Visit Admit Date FH: Down syndrome January 17, 2025 10: 03am History of miscarriage, currently pregna nt January 17, 2025 10:03am Mild anxiety January 17, 2025 10: 03am Obesity affecting January 17, 2025 10:03am January 17, 2025 10: 03am Rh negative state in antepartum period A pril 2024 10:03am Supervision of high-risk January 17, 2025 10:03am HTN (hypertension) January 17, 2025 10: 03am Chief Complaint Admit Date 13wk LMP 10/15January 17, 2025 10: 03am 17 wk ob February 15, 2025 12:57 pm Reason for Visit Admit Date FH: Down syndrome January 17, 2025 10: 03am History of miscarriage, currently pregna nt January 17, 2025 10:03am Mild anxiety January 17, 2025 10: 03am Obesity affecting January 17, 2025 10:03am January 17, 2025 10: 03am Rh negative state in antepartum period A pril 2024 10:03am Supervision of high-risk January 17, 2025 10:03am HTN (hypertension) January 17, 2025 10: 03am FH: Down syndrome February 15, 2025 12:57 pm History of miscarriage, currently pregna nt February 15, 2025 12:57pm Mild anxiety February 15, 2025 12:57 pm Obesity affecting February 15 12:57pm February 15, 2025 12:57 pm Rh negative state in antepartum period M ay 2024 12:57pm Supervision of high-risk February 032024 12:57pm HTN (hypertension) February 15, 2025 12:57 pm Chief Complaint Admit Date 13wk LMP 10/15January 17, 2025 10: 03am 17 wk ob February 15, 2025 12:57 pm 21 wk ob March 09, 2025 1:48p m Reason for Visit Admit Date FH: Down syndrome January 17, 2025 10: 03am History of miscarriage, currently pregna nt January 17, 2025 10:03am Mild anxiety January 17, 2025 10: 03am Obesity affecting January 17, 2025 10:03am January 17, 2025 10: 03am Rh negative state in antepartum period A pril 2024 10:03am Supervision of high-risk January 17, 2025 10:03am HTN (hypertension) January 17, 2025 10: 03am FH: Down syndrome February 15, 2025 12:57 pm History of miscarriage, currently pregna nt February 15, 2025 12:57pm Mild anxiety February 15, 2025 12:57 pm Obesity affecting February 15 12:57pm February 15, 2025 12:57 pm Rh negative state in antepartum period M ay 2024 12:57pm Supervision of high-risk February 032024 12:57pm HTN (hypertension) February 15, 2025 12:57 pm FH: Down syndrome March 09, 2025 1:48p m History of miscarriage, currently pregna nt March 09, 2025 1:48pm Mild anxiety March 09, 2025 1:48p m Obesity affecting March 09 1:48pm March 09, 2025 1:48p m Rh negative state in antepartum period J une 2024 1:48pm Supervision of high-risk March 09, 2025 1:48pm HTN (hypertension) March 09, 2025 1:48p m Chief Complaint Admit Date 13wk LMP 10/15January 17, 2025 10: 03am 17 wk ob February 15, 2025 12:57 pm 21 wk ob March 09, 2025 1:48p m ANATOMY March 09, 2025 2:43p m Chief Complaint Admit Date 13wk LMP 10/15January 17, 2025 10: 03am 17 wk ob February 15, 2025 12:57 pm 21 wk ob March 09, 2025 1:48p m ANATOMY March 09, 2025 2:43p m 25 wk ob April 14, 2025 3:29 pm Reason for Visit Admit Date FH: Down syndrome January 17, 2025 10: 03am History of miscarriage, currently pregna nt January 17, 2025 10:03am Mild anxiety January 17, 2025 10: 03am Obesity affecting January 17, 2025 10:03am January 17, 2025 10: 03am Rh negative state in antepartum period A pril 2024 10:03am Supervision of high-risk January 17, 2025 10:03am HTN (hypertension) January 17, 2025 10: 03am FH: Down syndrome February 15, 2025 12:57 pm History of miscarriage, currently pregna nt February 15, 2025 12:57pm Mild anxiety February 15, 2025 12:57 pm Obesity affecting February 15 12:57pm February 15, 2025 12:57 pm Rh negative state in antepartum period M ay 2024 12:57pm Supervision of high-risk February 032024 12:57pm HTN (hypertension) February 15, 2025 12:57 pm FH: Down syndrome March 09, 2025 1:48p m History of miscarriage, currently pregna nt March 09, 2025 1:48pm Mild anxiety March 09, 2025 1:48p m Obesity affecting March 09 1:48pm March 09, 2025 1:48p m Rh negative state in antepartum period J une 2024 1:48pm Supervision of high-risk March 09, 2025 1:48pm HTN (hypertension) March 09, 2025 1:48p m AMA (advanced maternal age) multigravida 35+ April 14, 2025 3:29pm FH: Down syndrome April 14, 2025 3:29 pm History of miscarriage, currently pregna nt April 14, 2025 3:29pm Low-lying placenta April 14, 2025 3:29 pm Mild anxiety April 14, 2025 3:29 pm Obesity affecting April 14, 2 025 3:29pm April 14, 2025 3:29 pm Rh negative state in antepartum period J davide 2024 3:29pm Supervision of high-risk April 14, 2025 3:29pm HTN (hypertension) April 14, 2025 3:29 pm Chief Complaint Admit Date 13wk LMP 10/15January 17, 2025 10: 03am 17 wk ob February 15, 2025 12:57 pm 21 wk ob March 09, 2025 1:48p m ANATOMY March 09, 2025 2:43p m 25 wk ob April 14, 2025 3:29 pm 28 wk ob/glucose April 26, 2025 10:0 4am Reason for Visit Admit Date FH: Down syndrome January 17, 2025 10: 03am History of miscarriage, currently pregna nt January 17, 2025 10:03am Mild anxiety January 17, 2025 10: 03am Obesity affecting January 17, 2025 10:03am January 17, 2025 10: 03am Rh negative state in antepartum period A pril 2024 10:03am Supervision of high-risk January 17, 2025 10:03am HTN (hypertension) January 17, 2025 10: 03am FH: Down syndrome February 15, 2025 12:57 pm History of miscarriage, currently pregna nt February 15, 2025 12:57pm Mild anxiety February 15, 2025 12:57 pm Obesity affecting February 15 12:57pm February 15, 2025 12:57 pm Rh negative state in antepartum period M ay 2024 12:57pm Supervision of high-risk February 032024 12:57pm HTN (hypertension) February 15, 2025 12:57 pm FH: Down syndrome March 09, 2025 1:48p m History of miscarriage, currently pregna nt March 09, 2025 1:48pm Mild anxiety March 09, 2025 1:48p m Obesity affecting March 09 1:48pm March 09, 2025 1:48p m Rh negative state in antepartum period J 2024 1:48pm Supervision of high-risk March 09, 2025 1:48pm HTN (hypertension) March 09, 2025 1:48p m AMA (advanced maternal age) multigravida 35+ April 14, 2025 3:29pm FH: Down syndrome April 14, 2025 3:29 pm History of miscarriage, currently pregna nt April 14, 2025 3:29pm Low-lying placenta April 14, 2025 3:29 pm Mild anxiety April 14, 2025 3:29 pm Obesity affecting April 14, 2 025 3:29pm April 14, 2025 3:29 pm Rh negative state in antepartum period J davide 2024 3:29pm Supervision of high-risk April 14, 2025 3:29pm HTN (hypertension) April 14, 2025 3:29 pm AMA (advanced maternal age) multigravida 35+ April 26, 2025 10:04am FH: Down syndrome April 26, 2025 10:0 4am History of miscarriage, currently pregna nt April 26, 2025 10:04am Low-lying placenta April 26, 2025 10:0 4am Mild anxiety April 26, 2025 10:0 4am Obesity affecting April 26, 025 10:04am April 26, 2025 10:0 4am Rh negative state in antepartum period J davide 2024 10:04am Supervision of high-risk April 26, 2025 10:04am HTN (hypertension) April 26, 2025 10:0 4am Chief Complaint Admit Date 13wk LMP 10/15January 17, 2025 10: 03am 17 wk ob February 15, 2025 12:57 pm 21 wk ob March 09, 2025 1:48p m ANATOMY March 09, 2025 2:43p m 25 wk ob April 14, 2025 3:29 pm 28 wk ob/glucose April 26, 2025 10:0 4am 30wk ob May 10, 2025 10: 00am Reason for Visit Admit Date FH: Down syndrome January 17, 2025 10: 03am History of miscarriage, currently pregna nt January 17, 2025 10:03am Mild anxiety January 17, 2025 10: 03am Obesity affecting January 17, 2025 10:03am January 17, 2025 10: 03am Rh negative state in antepartum period A pril 2024 10:03am Supervision of high-risk January 17, 2025 10:03am HTN (hypertension) January 17, 2025 10: 03am FH: Down syndrome February 15, 2025 12:57 pm History of miscarriage, currently pregna nt February 15, 2025 12:57pm Mild anxiety February 15, 2025 12:57 pm Obesity affecting February 15 12:57pm February 15, 2025 12:57 pm Rh negative state in antepartum period M jaquan 2024 12:57pm Supervision of high-risk February 032024 12:57pm HTN (hypertension) February 15, 2025 12:57 pm FH: Down syndrome March 09, 2025 1:48p m History of miscarriage, currently pregna nt March 09, 2025 1:48pm Mild anxiety March 09, 2025 1:48p m Obesity affecting March 09 1:48pm March 09, 2025 1:48p m Rh negative state in antepartum period J une 2024 1:48pm Supervision of high-risk March 09, 2025 1:48pm HTN (hypertension) March 09, 2025 1:48p m AMA (advanced maternal age) multigravida 35+ April 14, 2025 3:29pm FH: Down syndrome April 14, 2025 3:29 pm History of miscarriage, currently pregna nt April 14, 2025 3:29pm Low-lying placenta April 14, 2025 3:29 pm Mild anxiety April 14, 2025 3:29 pm Obesity affecting April 14, 025 3:29pm April 14, 2025 3:29 pm Rh negative state in antepartum period J davide 2024 3:29pm Supervision of high-risk April 14, 2025 3:29pm HTN (hypertension) April 14, 2025 3:29 pm AMA (advanced maternal age) multigravida 35+ April 26, 2025 10:04am FH: Down syndrome April 26, 2025 10:0 4am History of miscarriage, currently pregna nt April 26, 2025 10:04am Low-lying placenta April 26, 2025 10:0 4am Mild anxiety April 26, 2025 10:0 4am Obesity affecting April 26, 2 025 10:04am April 26, 2025 10:0 4am Rh negative state in antepartum period J davide 2024 10:04am Supervision of high-risk April 26, 2025 10:04am HTN (hypertension) April 26, 2025 10:0 4am AMA (advanced maternal age) multigravida 35+ May 10, 2025 10:00am FH: Down syndrome May 10, 2025 10: 00am History of miscarriage, currently pregna nt May 10, 2025 10:00am Low-lying placenta May 10, 2025 10: 00am Mild anxiety May 10, 2025 10: 00am Obesity affecting May 10, 2025 10:00am May 10, 2025 10: 00am Rh negative state in antepartum period A ugust 2024 10:00am Supervision of high-risk Augus t 2024 10:00am HTN (hypertension) May 10, 2025 10: 00am Chief Complaint Admit Date 17 wk ob February 15, 2025 12:57 pm 21 wk ob March 09, 2025 1:48p m ANATOMY March 09, 2025 2:43p m 25 wk ob April 14, 2025 3:29 pm 28 wk ob/glucose April 26, 2025 10:0 4am 30wk ob May 10, 2025 10: 00am 32wk ob May 27, 2025 9: 43am Reason for Visit Admit Date FH: Down syndrome February 15, 2025 12:57 pm History of miscarriage, currently pregna nt February 15, 2025 12:57pm Mild anxiety February 15, 2025 12:57 pm Obesity affecting February 15 12:57pm February 15, 2025 12:57 pm Rh negative state in antepartum period M ay 2024 12:57pm Supervision of high-risk February 032024 12:57pm HTN (hypertension) February 15, 2025 12:57 pm FH: Down syndrome March 09, 2025 1:48p m History of miscarriage, currently pregna nt March 09, 2025 1:48pm Mild anxiety March 09, 2025 1:48p m Obesity affecting March 09 1:48pm March 09, 2025 1:48p m Rh negative state in antepartum period J 2024 1:48pm Supervision of high-risk March 09, 2025 1:48pm HTN (hypertension) March 09, 2025 1:48p m AMA (advanced maternal age) multigravida 35+ April 14, 2025 3:29pm FH: Down syndrome April 14, 2025 3:29 pm History of miscarriage, currently pregna nt April 14, 2025 3:29pm Low-lying placenta April 14, 2025 3:29 pm Mild anxiety April 14, 2025 3:29 pm Obesity affecting April 14, 025 3:29pm April 14, 2025 3:29 pm Rh negative state in antepartum period J davide 2024 3:29pm Supervision of high-risk April 14, 2025 3:29pm HTN (hypertension) April 14, 2025 3:29 pm AMA (advanced maternal age) multigravida 35+ April 26, 2025 10:04am FH: Down syndrome April 26, 2025 10:0 4am History of miscarriage, currently pregna nt April 26, 2025 10:04am Low-lying placenta April 26, 2025 10:0 4am Mild anxiety April 26, 2025 10:0 4am Obesity affecting April 26, 025 10:04am April 26, 2025 10:0 4am Rh negative state in antepartum period J davide 2024 10:04am Supervision of high-risk April 26, 2025 10:04am HTN (hypertension) April 26, 2025 10:0 4am AMA (advanced maternal age) multigravida 35+ May 10, 2025 10:00am FH: Down syndrome May 10, 2025 10: 00am History of miscarriage, currently pregna nt May 10, 2025 10:00am Low-lying placenta May 10, 2025 10: 00am Mild anxiety May 10, 2025 10: 00am Obesity affecting May 10, 2025 10:00am May 10, 2025 10: 00am Rh negative state in antepartum period A ugust 2024 10:00am Supervision of high-risk Augus t 2024 10:00am HTN (hypertension) May 10, 2025 10: 00am AMA (advanced maternal age) multigravida 35+ May 27, 2025 9:43am FH: Down syndrome May 27, 2025 9: 43am History of miscarriage, currently pregna nt May 27, 2025 9:43am Low-lying placenta May 27, 2025 9: 43am Mild anxiety May 27, 2025 9: 43am Obesity affecting May 27, 2025 9:43am May 27, 2025 9: 43am Rh negative state in antepartum period A ugust 2024 9:43am Supervision of high-risk Augus t 2024 9:43am HTN (hypertension) May 27, 2025 9: 43am Chief Complaint Admit Date 17 wk ob February 15, 2025 12:57 pm 21 wk ob March 09, 2025 1:48p m ANATOMY March 09, 2025 2:43p m 25 wk ob April 14, 2025 3:29 pm 28 wk ob/glucose April 26, 2025 10:0 4am 30wk ob May 10, 2025 10: 00am 32wk ob May 27, 2025 9: 43am growth May 27, 2025 11 :40am 34wk ob/nst June 08, 2025 9:50am Reason for Visit Admit Date FH: Down syndrome February 15, 2025 12:57 pm History of miscarriage, currently pregna nt February 15, 2025 12:57pm Mild anxiety February 15, 2025 12:57 pm Obesity affecting February 15 12:57pm February 15, 2025 12:57 pm Rh negative state in antepartum period M ay 2024 12:57pm Supervision of high-risk February 032024 12:57pm HTN (hypertension) February 15, 2025 12:57 pm FH: Down syndrome March 09, 2025 1:48p m History of miscarriage, currently pregna nt March 09, 2025 1:48pm Mild anxiety March 09, 2025 1:48p m Obesity affecting March 09 1:48pm March 09, 2025 1:48p m Rh negative state in antepartum period J 2024 1:48pm Supervision of high-risk March 09, 2025 1:48pm HTN (hypertension) March 09, 2025 1:48p m AMA (advanced maternal age) multigravida 35+ April 14, 2025 3:29pm FH: Down syndrome April 14, 2025 3:29 pm History of miscarriage, currently pregna nt April 14, 2025 3:29pm Mild anxiety April 14, 2025 3:29 pm Obesity affecting April 14, 025 3:29pm April 14, 2025 3:29 pm Rh negative state in antepartum period J davide 2024 3:29pm Supervision of high-risk April 14, 2025 3:29pm HTN (hypertension) April 14, 2025 3:29 pm Low-lying placenta April 14, 2025 3:29 pm AMA (advanced maternal age) multigravida 35+ April 26, 2025 10:04am FH: Down syndrome April 26, 2025 10:0 4am History of miscarriage, currently pregna nt April 26, 2025 10:04am Mild anxiety April 26, 2025 10:0 4am Obesity affecting April 26, 025 10:04am April 26, 2025 10:0 4am Rh negative state in antepartum period J davide 2024 10:04am Supervision of high-risk April 26, 2025 10:04am HTN (hypertension) April 26, 2025 10:0 4am Low-lying placenta April 26, 2025 10:0 4am AMA (advanced maternal age) multigravida 35+ May 10, 2025 10:00am FH: Down syndrome May 10, 2025 10: 00am History of miscarriage, currently pregna nt May 10, 2025 10:00am Mild anxiety May 10, 2025 10: 00am Obesity affecting May 10, 2025 10:00am May 10, 2025 10: 00am Rh negative state in antepartum period A 2024 10:00am Supervision of high-risk Augus t 2024 10:00am HTN (hypertension) May 10, 2025 10: 00am Low-lying placenta May 10, 2025 10: 00am AMA (advanced maternal age) multigravida 35+ May 27, 2025 9:43am FH: Down syndrome May 27, 2025 9: 43am History of miscarriage, currently pregna nt May 27, 2025 9:43am Mild anxiety May 27, 2025 9: 43am Obesity affecting May 27, 2025 9:43am May 27, 2025 9: 43am Rh negative state in antepartum period A ugust 2024 9:43am Supervision of high-risk Augus t 2024 9:43am HTN (hypertension) May 27, 2025 9: 43am Low-lying placenta May 27, 2025 9: 43am AMA (advanced maternal age) multigravida 35+ June 08, 2025 9:50am FH: Down syndrome June 08, 2025 9:50am History of miscarriage, currently pregna nt June 08, 2025 9:50am Mild anxiety June 08, 2025 9:50am Obesity affecting June 9:50am June 08, 2025 9:50am Rh negative state in antepartum period S eptember 2024 9:50am Supervision of high-risk Septe [id number] 9:50am HTN (hypertension) June 08, 2025 9:50am Chief Complaint Admit Date 17 wk ob February 15, 2025 12:57 pm 21 wk ob March 09, 2025 1:48p m ANATOMY March 09, 2025 2:43p m 25 wk ob April 14, 2025 3:29 pm 28 wk ob/glucose April 26, 2025 10:0 4am 30wk ob May 10, 2025 10: 00am 32wk ob May 27, 2025 9: 43am growth May 27, 2025 11 :40am Chief Complaint Admit Date 17 wk ob February 15, 2025 12:57 pm 21 wk ob March 09, 2025 1:48p m ANATOMY March 09, 2025 2:43p m 25 wk ob April 14, 2025 3:29 pm 28 wk ob/glucose April 26, 2025 10:0 4am 30wk ob May 10, 2025 10: 00am 32wk ob May 27, 2025 9: 43am growth May 27, 2025 11 :40am 34wk ob/nst June 08, 2025 9:50am 35wk nst only June 14, 2025 10:37am Reason for Visit Admit Date FH: Down syndrome February 15, 2025 12:57 pm History of miscarriage, currently pregna nt February 15, 2025 12:57pm Mild anxiety February 15, 2025 12:57 pm Obesity affecting February 15 12:57pm February 15, 2025 12:57 pm Rh negative state in antepartum period M ay 2024 12:57pm Supervision of high-risk February [id number] 12:57pm HTN (hypertension) February 15, 2025 12:57 pm FH: Down syndrome March 09, 2025 1:48p m History of miscarriage, currently pregna nt March 09, 2025 1:48pm Mild anxiety March 09, 2025 1:48p m Obesity affecting March 09 1:48pm March 09, 2025 1:48p m Rh negative state in antepartum period J une 2024 1:48pm Supervision of high-risk March 09, 2025 1:48pm HTN (hypertension) March 09, 2025 1:48p m AMA (advanced maternal age) multigravida 35+ April 14, 2025 3:29pm FH: Down syndrome April 14, 2025 3:29 pm History of miscarriage, currently pregna nt April 14, 2025 3:29pm Mild anxiety April 14, 2025 3:29 pm Obesity affecting April 14 025 3:29pm April 14, 2025 3:29 pm Rh negative state in antepartum period J davide 2024 3:29pm Supervision of high-risk April 14, 2025 3:29pm HTN (hypertension) April 14, 2025 3:29 pm Low-lying placenta April 14, 2025 3:29 pm AMA (advanced maternal age) multigravida 35+ April 26, 2025 10:04am FH: Down syndrome April 26, 2025 10:0 4am History of miscarriage, currently pregna nt April 26, 2025 10:04am Mild anxiety April 26, 2025 10:0 4am Obesity affecting April 26, 2 025 10:04am April 26, 2025 10:0 4am Rh negative state in antepartum period J davide 2024 10:04am Supervision of high-risk April 26, 2025 10:04am HTN (hypertension) April 26, 2025 10:0 4am Low-lying placenta April 26, 2025 10:0 4am AMA (advanced maternal age) multigravida 35+ May 10, 2025 10:00am FH: Down syndrome May 10, 2025 10: 00am History of miscarriage, currently pregna nt May 10, 2025 10:00am Mild anxiety May 10, 2025 10: 00am Obesity affecting May 10, 2025 10:00am May 10, 2025 10: 00am Rh negative state in antepartum period A ugust 2024 10:00am Supervision of high-risk Augus t 2024 10:00am HTN (hypertension) May 10, 2025 10: 00am Low-lying placenta May 10, 2025 10: 00am AMA (advanced maternal age) multigravida 35+ May 27, 2025 9:43am FH: Down syndrome May 27, 2025 9: 43am History of miscarriage, currently pregna nt May 27, 2025 9:43am Mild anxiety May 27, 2025 9: 43am Obesity affecting May 27, 2025 9:43am May 27, 2025 9: 43am Rh negative state in antepartum period A ust 2024 9:43am Supervision of high-risk Augus t 2024 9:43am HTN (hypertension) May 27, 2025 9: 43am Low-lying placenta May 27, 2025 9: 43am AMA (advanced maternal age) multigravida 35+ June 08, 2025 9:50am FH: Down syndrome June 08, 2025 9:50am History of miscarriage, currently pregna nt June 08, 2025 9:50am Mild anxiety June 08, 2025 9:50am Obesity affecting June 9:50am June 08, 2025 9:50am Rh negative state in antepartum period S epteer 2024 9:50am Supervision of high-risk Septe [facility] 2024 9:50am HTN (hypertension) June 08, 2025 9:50am AMA (advanced maternal age) multigravida 35+ June 14, 2025 10:37am FH: Down syndrome June 14, 2025 10:37am History of miscarriage, currently pregna nt June 14, 2025 10:37am Mild anxiety June 14, 2025 10:37am Obesity affecting June 10:37am June 14, 2025 10:37am Rh negative state in antepartum period S eptember 2024 10:37am Supervision of high-risk Veronica michel 2024 10:37am HTN (hypertension) June 14, 2025 10:37am Chief Complaint Admit Date 21 wk ob March 09, 2025 1:48p m ANATOMY March 09, 2025 2:43p m 25 wk ob April 14, 2025 3:29 pm 28 wk ob/glucose April 26, 2025 10:0 4am 30wk ob May 10, 2025 10: 00am 32wk ob May 27, 2025 9: 43am growth May 27, 2025 11 :40am 34wk ob/nst June 08, 2025 9:50am 35wk nst only June 14, 2025 10:37am 36wk ob/nst June 21, 2025 9:59am Reason for Visit Admit Date FH: Down syndrome March 09, 2025 1:48p m History of miscarriage, currently pregna nt March 09, 2025 1:48pm Mild anxiety March 09, 2025 1:48p m Obesity affecting March 09 1:48pm March 09, 2025 1:48p m Rh negative state in antepartum period J [facility] 2024 1:48pm Supervision of high-risk March 09, 2025 1:48pm HTN (hypertension) March 09, 2025 1:48p m AMA (advanced maternal age) multigravida 35+ April 14, 2025 3:29pm FH: Down syndrome April 14, 2025 3:29 pm History of miscarriage, currently pregna nt April 14, 2025 3:29pm Mild anxiety April 14, 2025 3:29 pm Obesity affecting April 14, 2 025 3:29pm April 14, 2025 3:29 pm Rh negative state in antepartum period J davide 2024 3:29pm Supervision of high-risk April 14, 2025 3:29pm HTN (hypertension) April 14, 2025 3:29 pm Low-lying placenta April 14, 2025 3:29 pm AMA (advanced maternal age) multigravida 35+ April 26, 2025 10:04am FH: Down syndrome April 26, 2025 10:0 4am History of miscarriage, currently pregna nt April 26, 2025 10:04am Mild anxiety April 26, 2025 10:0 4am Obesity affecting April 26, 025 10:04am April 26, 2025 10:0 4am Rh negative state in antepartum period J davide 2024 10:04am Supervision of high-risk April 26, 2025 10:04am HTN (hypertension) April 26, 2025 10:0 4am Low-lying placenta April 26, 2025 10:0 4am AMA (advanced maternal age) multigravida 35+ May 10, 2025 10:00am FH: Down syndrome May 10, 2025 10: 00am History of miscarriage, currently pregna nt May 10, 2025 10:00am Mild anxiety May 10, 2025 10: 00am Obesity affecting May 10, 2025 10:00am May 10, 2025 10: 00am Rh negative state in antepartum period A ugust 2024 10:00am Supervision of high-risk Augus t 2024 10:00am HTN (hypertension) May 10, 2025 10: 00am Low-lying placenta May 10, 2025 10: 00am AMA (advanced maternal age) multigravida 35+ May 27, 2025 9:43am FH: Down syndrome May 27, 2025 9: 43am History of miscarriage, currently pregna nt May 27, 2025 9:43am Mild anxiety May 27, 2025 9: 43am Obesity affecting May 27, 2025 9:43am May 27, 2025 9: 43am Rh negative state in antepartum period A ugust 2024 9:43am Supervision of high-risk Augus t 2024 9:43am HTN (hypertension) May 27, 2025 9: 43am Low-lying placenta May 27, 2025 9: 43am AMA (advanced maternal age) multigravida 35+ June 08, 2025 9:50am FH: Down syndrome June 08, 2025 9:50am History of miscarriage, currently pregna nt June 08, 2025 9:50am Mild anxiety June 08, 2025 9:50am Obesity affecting June 9:50am June 08, 2025 9:50am [facility] 9[facility] 9:50am HTN (hypertension) June 08, 2025 9:50am AMA (advanced maternal age) multigravida 35+ June 14, 2025 10:37am FH: Down syndrome June 14, 2025 10:37am History of miscarriage, currently pregna nt June 14, 2025 10:37am Mild anxiety June 14, 2025 10:37am Obesity affecting June 10:37am June 14, 2025 10:37am [facility] 10:[facility] Supervision of high-risk [facility] 2024 10:37am HTN (hypertension) June 14, 2025 10:37am AMA (advanced maternal age) multigravida 35+ June 21, 2025 9:59am FH: Down syndrome June 21, 2025 9:59am History of miscarriage, currently pregna nt June 21, 2025 9:59am Mild anxiety June 21, 2025 9:59am Obesity affecting June [id number] 9:59am June 21, 2025 9:59am Rh negative state in antepartum period S [facility] 2024 9:59am Supervision of high-risk [facility] 2024 9:59am HTN (hypertension) June 21, 2025 9:59am Additional Source Comments INFORMATION SOURCE (unrecogn ized section and content) DATE CREATED AUTHOR 08/12/2024 [facility] DATE CREATED AUTHOR AUTHOR'S ORGANIZ ATION 06/20/2025 [facility] Care Teams (unrecognized sec tion and content) Team Status: Active Member Role Status Dates Dr. Lionel Cruz PA-C Primary Care Provider Active Team Status: Inactive Member Role Status Dates Dr. Lionel Cruz PA-C Primary Care Provider Active Start: January 17, 2025 End: January 17, 2025 Dr. Lionel Cruz PA-C Referring Provider Active Start: January 17, 2025 End: January 17, 2025 Dr. Natalie Shelton , Attending Provider Activ e Start: January 17, 2025 End: January 17, 2025 Team Status: Inactive Member Role Status Dates Dr. Lionel Cruz PA-C Primary Care Provider Active Start: January 17, 2025 End: January 17, 2025 Dr. Natalie Shelton , Attending Provider Activ e Start: January 17, 2025 End: January 17, 2025 Dr. Natalie Shelton , Referring Provider Activ e Start: January 17, 2025 End: January 17, 2025 Team Status: Inactive Member Role Status Dates Dr. Lionel Cruz PA-C Primary Care Provider Active Start: February 15, 2025 End: February 15, 2025 Dr. Lionel Cruz PA-C Referring Provider Active Start: February 15, 2025 End: February 15, 2025 Beti Moore COLD ROLLING MACHINE SETTER, COLD ROLLING MACHINE SETTER-C Attending Provider Active Start: February 15, 2025 End: February 15, 2025 Team Status: Inactive Member Role Status Dates Dr. Lionel Cruz PA-C Primary Care Provider Active Start: February 15, 2025 End: February 15, 2025 Beti Moore COLD ROLLING MACHINE SETTER, COLD ROLLING MACHINE SETTER-C Attending Provider Active Start: February 15, 2025 End: February 15, 2025 Beti Moore COLD ROLLING MACHINE SETTER, COLD ROLLING MACHINE SETTER-C Referring Provider Active Start: February 15, 2025 End: February 15, 2025 Team Status: Inactive Member Role Status Dates Dr. Lionel Cruz PA-C Primary Care Provider Active Start: March 09, 2025 End: March 09, 2025 Dr. Lionel Cruz PA-C Referring Provider Active Start: March 09, 2025 End: March 09, 2025 Beti Moore COLD ROLLING MACHINE SETTER, COLD ROLLING MACHINE SETTER-C Attending Provider Active Start: March 09, 2025 End: March 09, 2025 Team Status: Inactive Member Role Status Dates Dr. Lionel Cruz PA-C Primary Care Provider Active Start: March 09, 2025 End: March 09, 2025 Beti Moore COLD ROLLING MACHINE SETTER, COLD ROLLING MACHINE SETTER-C Attending Provider Active Start: March 09, 2025 End: March 09, 2025 Beti Moore COLD ROLLING MACHINE SETTER, COLD ROLLING MACHINE SETTER-C Referring Provider Active Start: March 09, 2025 End: March 09, 2025 Team Status: Active Member Role/Relationship Status Dates Dr. Lionel Cruz PA-C Primary Care Provider Active Team Status: Inactive Member Role/Relationship Status Dates Dr. Lionel Cruz PA-C Primary Care Provider Active Start: January 17, 2025 End: January 17, 2025 Dr. Lionel Cruz PA-C Referring Provider Active Start: January 17, 2025 End: January 17, 2025 Dr. Natalie Shelton DO Attending Provider Activ e Start: January 17, 2025 End: January 17, 2025 Team Status: Inactive Member Role/Relationship Status Dates Dr. Lionel Cruz PA-C Primary Care Provider Active Start: January 17, 2025 End: January 17, 2025 Dr. Natalie Shelton DO Attending Provider Activ e Start: January 17, 2025 End: January 17, 2025 Dr. Natalie Shelton DO Referring Provider Activ e Start: January 17, 2025 End: January 17, 2025 Team Status: Inactive Member Role/Relationship Status Dates Dr. Lionel Cruz PA-C Primary Care Provider Active Start: February 15, 2025 End: February 15, 2025 Dr. Lionel Cruz PA-C Referring Provider Active Start: February 15, 2025 End: February 15, 2025 Beti Moore NP COLD ROLLING MACHINE SETTER-C Attending Provider Active Start: February 15, 2025 End: February 15, 2025 Team Status: Inactive Member Role/Relationship Status Dates Dr. Lionel Cruz PA-C Primary Care Provider Active Start: February 15, 2025 End: February 15, 2025 Beti Moore COLD ROLLING MACHINE SETTER, COLD ROLLING MACHINE SETTER-C Attending Provider Active Start: February 15, 2025 End: February 15, 2025 Beti Moore COLD ROLLING MACHINE SETTER COLD ROLLING MACHINE SETTER-C Referring Provider Active Start: February 15, 2025 End: February 15, 2025 Team Status: Inactive Member Role/Relationship Status Dates Dr. Lionel Cruz PA-C Primary Care Provider Active Start: March 09, 2025 End: March 09, 2025 Dr. Lionel Cruz PA-C Referring Provider Active Start: March 09, 2025 End: March 09, 2025 Beti Moore COLD ROLLING MACHINE SETTER, COLD ROLLING MACHINE SETTER-C Attending Provider Active Start: March 09, 2025 End: March 09, 2025 Team Status: Inactive Member Role/Relationship Status Dates Dr. Lionel Cruz PA-C Primary Care Provider Active Start: March 09, 2025 End: March 09, 2025 Beti Moore COLD ROLLING MACHINE SETTER, COLD ROLLING MACHINE SETTER-C Attending Provider Active Start: March 09, 2025 End: March 09, 2025 Beti Moore COLD ROLLING MACHINE SETTER, COLD ROLLING MACHINE SETTER-C Referring Provider Active Start: March 09, 2025 End: March 09, 2025 Team Status: Inactive Member Role/Relationship Status Dates Dr. Lionel Cruz PA-C Primary Care Provider Active Start: April 14, 2025 End: April 14, 2025 Dr. Lionel Cruz PA-C Referring Provider Active Start: April 14, 2025 End: April 14, 2025 Nori Lomeli CNM Attending Provider Active S tart: April 14, 2025 End: April 14, 2025 Team Status: Inactive Member Role/Relationship Status Dates Dr. Lionel Cruz PA-C Primary Care Provider Active Start: April 26, 2025 End: April 26, 2025 Dr. Lionel Cruz PA-C Referring Provider Active Start: April 26, 2025 End: April 26, 2025 Dr. Tiffani Ansari MD Attending Provider Active Start: April 26, 2025 End: April 26, 2025 Team Status: Active Member Role/Relationship Status Dates Dr. Lionel Cruz PA-C Primary Care Provider Active Start: April 26, 2025 Dr. Tiffani Ansari MD Attending Provider Active Start: April 26, 2025 Dr. iTffani Ansari MD Referring Provider Active Start: April 26, 2025 Team Status: Inactive Member Role/Relationship Status Dates Dr. Lionel Cruz PA-C Primary Care Provider Active Start: April 26, 2025 End: April 26, 2025 Dr. Tiffani Ansari MD Attending Provider Active Start: April 26, 2025 End: April 26, 2025 Dr. Tiffani Ansari MD Referring Provider Active Start: April 26, 2025 End: April 26, 2025 Team Status: Inactive Member Role/Relationship Status Dates Dr. Lionel Cruz PA-C Primary Care Provider Active Start: May 10, 2025 End: May 10, 2025 Dr. Lionel Cruz PA-C Referring Provider Active Start: May 10, 2025 End: May 10, 2025 Dr. Natalie Shelton DO Attending Provider Activ e Start: May 10, 2025 End: May 10, 2025 Team Status: Active Member Role/Relationship Status Dates Dr. Lionel Cruz PA-C Primary Care Provider Active Start: May 10, 2025 Dr. Natalie Shelton DO Attending Provider Activ e Start: May 10, 2025 Team Status: Inactive Member Role/Relationship Status Dates Dr. Lionel Cruz PA-C Primary Care Provider Active Start: May 10, 2025 End: May 10, 2025 Dr. Natalie Shelton DO Attending Provider Activ e Start: May 10, 2025 End: May 10, 2025 Team Status: Inactive Member Role/Relationship Status Dates Dr. Lionel Cruz PA-C Primary Care Provider Active Start: February 15, 2025 End: February 15, 2025 Dr. Lionel Cruz PA-C Referring Provider Active Start: February 15, 2025 End: February 15, 2025 Beti Moore COLD ROLLING MACHINE SETTER, COLD ROLLING MACHINE SETTER-C Attending Provider Active Start: February 15, 2025 End: February 15, 2025 Team Status: Inactive Member Role/Relationship Status Dates Dr. Lionel Cruz PA-C Primary Care Provider Active Start: February 15, 2025 End: February 15, 2025 Beti Moore COLD ROLLING MACHINE SETTER, COLD ROLLING MACHINE SETTER-C Attending Provider Active Start: February 15, 2025 End: February 15, 2025 Beti Moore COLD ROLLING MACHINE SETTER, COLD ROLLING MACHINE SETTER-C Referring Provider Active Start: February 15, 2025 End: February 15, 2025 Team Status: Inactive Member Role/Relationship Status Dates Dr. Lionel Cruz PA-C Primary Care Provider Active Start: March 09, 2025 End: March 09, 2025 Dr. Lionel Cruz PA-C Referring Provider Active Start: March 09, 2025 End: March 09, 2025 Beti Moore COLD ROLLING MACHINE SETTER, COLD ROLLING MACHINE SETTER-C Attending Provider Active Start: March 09, 2025 End: March 09, 2025 Team Status: Inactive Member Role/Relationship Status Dates Dr. Lionel Cruz PA-C Primary Care Provider Active Start: March 09, 2025 End: March 09, 2025 Beti Moore COLD ROLLING MACHINE SETTER, COLD ROLLING MACHINE SETTER-C Attending Provider Active Start: March 09, 2025 End: March 09, 2025 Beit Moore COLD ROLLING MACHINE SETTER, COLD ROLLING MACHINE SETTER-C Referring Provider Active Start: March 09, 2025 End: March 09, 2025 Team Status: Inactive Member Role/Relationship Status Dates Dr. Lionel Cruz PA-C Primary Care Provider Active Start: April 14, 2025 End: April 14, 2025 Dr. Lionel Cruz PA-C Referring Provider Active Start: April 14, 2025 End: April 14, 2025 Nori Lomeli CNM Attending Provider Active S tart: April 14, 2025 End: April 14, 2025 Team Status: Inactive Member Role/Relationship Status Dates Dr. Lionel Cruz PA-C Primary Care Provider Active Start: April 26, 2025 End: April 26, 2025 Dr. Lionel Cruz PA-C Referring Provider Active Start: April 26, 2025 End: April 26, 2025 Dr. Tiffani Ansari MD Attending Provider Active Start: April 26, 2025 End: April 26, 2025 Team Status: Inactive Member Role/Relationship Status Dates Dr. iLonel Cruz PA-C Primary Care Provider Active Start: April 26, 2025 End: April 26, 2025 Dr. Tiffani Ansari MD Attending Provider Active Start: April 26, 2025 End: April 26, 2025 Dr. Tiffani Ansari MD Referring Provider Active Start: April 26, 2025 End: April 26, 2025 Team Status: Inactive Member Role/Relationship Status Dates Dr. Lionel Cruz PA-C Primary Care Provider Active Start: May 10, 2025 End: May 10, 2025 Dr. Lionel Cruz PA-C Referring Provider Active Start: May 10, 2025 End: May 10, 2025 Dr. Natalie Shelton DO Attending Provider Activ e Start: May 10, 2025 End: May 10, 2025 Team Status: Inactive Member Role/Relationship Status Dates Dr. Lionel Cruz PA-C Primary Care Provider Active Start: May 10, 2025 End: May 10, 2025 Dr. Natalie Shelton DO Attending Provider Activ e Start: May 10, 2025 End: May 10, 2025 Team Status: Inactive Member Role/Relationship Status Dates Dr. Lionel Cruz PA-C Primary Care Provider Active Start: May 27, 2025 End: May 27, 2025 Dr. Lionel Cruz PA-C Referring Provider Active Start: May 27, 2025 End: May 27, 2025 Jen Gerber CNM Attending Provider Active Start: May 27, 2025 End: May 27, 2025 Team Status: Inactive Member Role/Relationship Status Dates Dr. Lionel Cruz PA-C Primary Care Provider Active Start: May 27, 2025 End: May 27, 2025 Dr. Tiffani Ansari MD Attending Provider Active Start: May 27, 2025 End: May 27, 2025 Dr. Tiffani Ansari MD Referring Provider Active Start: May 27, 2025 End: May 27, 2025 Team Status: Inactive Member Role/Relationship Status Dates Dr. Lionel Cruz PA-C Primary Care Provider Active Start: June 08, 2025 End: June 08, 2025 Dr. Lionel Cruz PA-C Referring Provider Active Start: June 08, 2025 End: June 08, 2025 Beti Moore NP, NP-C Attending Provider Active Start: June 08, 2025 End: June 08, 2025 Team Status: Inactive Member Role/Relationship Status Dates Dr. Lionel Cruz PA-C Primary Care Provider Active Start: June 14, 2025 End: June 14, 2025 Dr. Lionel Cruz PA-C Referring Provider Active Start: June 14, 2025 End: June 14, 2025 Dr. Tiffani Ansari MD Attending Provider Active Start: June 14, 2025 End: June 14, 2025 Team Status: Inactive Member Role/Relationship Status Dates Dr. Lionel Cruz PA-C Primary Care Provider Active Start: March 09, 2025 End: March 09, 2025 Dr. Lionel Cruz PA-C Referring Provider Active Start: March 09, 2025 End: March 09, 2025 Beti Moore COLD ROLLING MACHINE SETTER, COLD ROLLING MACHINE SETTER-C Attending Provider Active Start: March 09, 2025 End: March 09, 2025 Team Status: Inactive Member Role/Relationship Status Dates Dr. Lionel Cruz PA-C Primary Care Provider Active Start: March 09, 2025 End: March 09, 2025 Beti Moore COLD ROLLING MACHINE SETTER, COLD ROLLING MACHINE SETTER-C Attending Provider Active Start: March 09, 2025 End: March 09, 2025 Beti Moore COLD ROLLING MACHINE SETTER, COLD ROLLING MACHINE SETTER-C Referring Provider Active Start: March 09, 2025 End: March 09, 2025 Team Status: Inactive Member Role/Relationship Status Dates Dr. Lionel Cruz PA-C Primary Care Provider Active Start: April 14, 2025 End: April 14, 2025 Dr. Lionel Cruz PA-C Referring Provider Active Start: April 14, 2025 End: April 14, 2025 Nori Lomeli CNM Attending Provider Active S tart: April 14, 2025 End: April 14, 2025 Team Status: Inactive Member Role/Relationship Status Dates Dr. Lionel Cruz PA-C Primary Care Provider Active Start: April 26, 2025 End: April 26, 2025 Dr. Lionel Cruz PA-C Referring Provider Active Start: April 26, 2025 End: April 26, 2025 Dr. Tiffani Ansari MD Attending Provider Active Start: April 26, 2025 End: April 26, 2025 Team Status: Inactive Member Role/Relationship Status Dates Dr. Lionel Cruz PA-C Primary Care Provider Active Start: April 26, 2025 End: April 26, 2025 Dr. Tiffani Ansari MD Attending Provider Active Start: April 26, 2025 End: April 26, 2025 Dr. Tiffani Ansari MD Referring Provider Active Start: April 26, 2025 End: April 26, 2025 Team Status: Inactive Member Role/Relationship Status Dates Dr. Lionel Cruz PA-C Primary Care Provider Active Start: May 10, 2025 End: May 10, 2025 Dr. Lionel Cruz PA-C Referring Provider Active Start: May 10, 2025 End: May 10, 2025 Dr. Natalie Shelton DO Attending Provider Activ e Start: May 10, 2025 End: May 10, 2025 Team Status: Inactive Member Role/Relationship Status Dates Dr. Lionel Cruz PA-C Primary Care Provider Active Start: May 10, 2025 End: May 10, 2025 Dr. Natalie Shelton DO Attending Provider Activ e Start: May 10, 2025 End: May 10, 2025 Team Status: Inactive Member Role/Relationship Status Dates Dr. Lionel Cruz PA-C Primary Care Provider Active Start: May 27, 2025 End: May 27, 2025 Dr. Lionel Cruz PA-C Referring Provider Active Start: May 27, 2025 End: May 27, 2025 Jen Gerber CNM Attending Provider Active Start: May 27, 2025 End: May 27, 2025 Team Status: Inactive Member Role/Relationship Status Dates Dr. Lionel Cruz PA-C Primary Care Provider Active Start: May 27, 2025 End: May 27, 2025 Dr. Tiffani Ansari MD Attending Provider Active Start: May 27, 2025 End: May 27, 2025 Dr. Tiffani Ansari MD Referring Provider Active Start: May 27, 2025 End: May 27, 2025 Team Status: Inactive Member Role/Relationship Status Dates Dr. Lionel Cruz PA-C Primary Care Provider Active Start: June 08, 2025 End: June 08, 2025 Dr. Lionel Cruz PA-C Referring Provider Active Start: June 08, 2025 End: June 08, 2025 Beti Moore NP, NELIDA-C Attending Provider Active Start: June 08, 2025 End: June 08, 2025 Team Status: Inactive Member Role/Relationship Status Dates Dr. Lionel Cruz PA-C Primary Care Provider Active Start: June 14, 2025 End: June 14, 2025 Dr. Lionel Cruz PA-C Referring Provider Active Start: June 14, 2025 End: June 14, 2025 Dr. Tiffani Ansari MD Attending Provider Active Start: June 14, 2025 End: June 14, 2025 Team Status: Inactive Member Role/Relationship Status Dates Dr. Lionel Cruz PA-C Primary Care Provider Active Start: June 21, 2025 End: June 21, 2025 Dr. Lionel Cruz , [facility] Referring Provider Active Start: June 21, 2025 End: June 21, 2025 Nori Lomeli CNM Attending Provider Active S tart: June 21, 2025 End: June 21, 2025 Goals (unrecognized section and content) Goals may be documented in a n alternate sectionGoals may be documented in an alternate sectionGoals may be documented in an alternate sectionGoals may be documented in an alternate sectionGoals may be documented in an alternate sectionGoals may be documented in an alternate sectionGoals may be documented in an alternate sectionGoals may be documented in an alternate sectionGoals may be documented in an alternate sectionGoals may be documented in an alternate sectionGoals may be documented in an alternate sectionGoals may be documented in an alternate sectionGoals may be documented in an alternate sectionGoals may be documented in an alternate sectionGoals may be documented in an alternate section FOR RECORDS PERTAINING TO PATIENTS WHO ARE OR HAVE BEEN ENROLLED IN A CHEMICAL DEPENDENCY/SUBSTANCEABUSE PROGRAM, SOME INFORMATION MAY BE OMITTED. This clinical summary was aggregated from multiple sources. Caution should be exercised in using it in the provision of clinical care. This summary normalizes information from multiple sources, and as a consequence, information in this document may materially change the coding, format and clinical context of patient data. In addition, data may be omitted in some cases. CLINICAL DECISIONS SHOULD BE BASED ON THE PRIMARY CLINICAL RECORDS. [facility]. provides no warranty or guarantee of the accuracy or completeness of information in this document.
== END | disposition home or self-care (01) ==
LOC: LABSPEC 11:52
PROVIDERS: PCP Physician Assistant; Referring Provider Advanced Practice Midwife; Visit Provider Advanced Practice Midwife
DX: O09.93 Supervision of high risk pregnancy, unspecified, third trimester (principal); Z3A.35 35 weeks gestation of pregnancy
CPT/HCPCS: 87081

== ENCOUNTER → 2025-06-30 | Outpatient (CLI) | payer SELFPAY, OTHER ==
--- NOTE | 2025-06-30 12:12 | US_ITS ---
PROCEDURE: OB LIMITED WITH BIOMETRICS 06/30/2025 REASON FOR EXAM: 36 WEEK GROWTH TECHNIQUE: Procedure Code: USOBGROWTH Modality: US Procedure: OB LIMITED WITH BIOMETRICS COMPARISON: 05/27/2025 FINDINGS Number: 1 Position: Vertex Placental Position: Anterior Placental Abnormalities: None DIMENSIONS: Biparietal Diameter: 9.2 cm/37 weeks 2 days Head Circumference: 32.5 cm/36 weeks 5 days Abdominal Circumference: 33.2 cm/37 weeks 1 day Femur Length: 6.9 cm/35 weeks 2 days ESTIMATED WEIGHT: 3028 g ESTIMATED WEIGHT PERCENTILE (24+ weeks): 53.1 ESTIMATED GESTATIONAL AGE: Baseline: 36 weeks 6 days By Ultrasound: 36 weeks 6 days ESTIMATED DATE OF DELIVERY: Baseline: 07/22/2025 By Ultrasound: 07/22/2025 BIOPHYSICAL ASSESSMENT: Amniotic Fluid Volume: Normal Amniotic Fluid Index: 10.5 (8-24 cm normal range) Cardiac Motion: 153 beats per minute (average) Trunk and Limb Motion: Present. MATERNAL ANATOMY: Adnexa: Neither maternal ovary is successfully identified. Cervical Length (if measured): Not visualized US/OB Limited With Biometrics IMPRESSION: Single live IUP in cephalic presentation with an estimated gestational age of 3 6 weeks 6 days and estimated delivery date of July 22, 2025. Normal biophysical assessment. Reading Location: [place] [id number]
== END | disposition home or self-care (01) ==
PROVIDERS: PCP Physician Assistant; Referring Provider Advanced Practice Midwife; Visit Provider Advanced Practice Midwife
DX: O09.523 Supervision of elderly multigravida, third trimester (principal); O99.213 Obesity complicating pregnancy, third trimester; O10.913 Unspecified pre-existing hypertension complicating pregnancy, third trimester; Z3A.36 36 weeks gestation of pregnancy; E66.9 Obesity, unspecified
CPT/HCPCS: 76816

== ENCOUNTER → 2025-07-06 | Outpatient (CLI) | payer OTHER, SELFPAY | END | disposition home or self-care (01) | LOC: LABSPEC 11:59 | PROVIDERS: PCP Physician Assistant; Visit Provider Obstetrics & Gynecology | DX: Z34.93 Encounter for supervision of normal pregnancy, unspecified, third trimester (principal) | CPT/HCPCS: 87086; 87088 ==

== ENCOUNTER 2025-07-15 10:40 | Inpatient (IN) | payer SELFPAY ==
[2025-07-15] VITALS (35 sets, daily range): BP systolic 114–156; BP diastolic 58–85; PULSE 81–109; RESP 16; TEMP 37–37.7; O2SAT 95–100; BMI 39.2
[2025-07-15] MEDS: Lactated Ringers 1,000 ML 50 ML IV (11:15)
--- NOTE | 2025-07-15 12:03 | HP.PCM.OB_ITS ---
HPI - General General Date of Admission: 07/15/25 Date of Service: 07/15/25 HPI Narrative NITZA PASTRANA, is a 44 F who presents to unit for IOL due to AMA and obesity Maternal Data Information DC Calculator Estimated Delivery Date Method Current WG Current Estimate 07/22/25 LMP (Certain) 39w 0d Final DC: 07/22/25 Final DC Source: US >20 weeks Gestational age: 39.0 PFSH PFSH Medical History (Updated 07/15/25 @ 12:05 by Nori Lomeli CNM) Anxiety PCOS (polycystic ovarian syndrome) Retained placenta demise before 20 weeks with retention of fetus Gestational diabetes Home Medications ?Medication ?Instructions ?Recorded ?Last Taken ?Type ondansetron HCl 4 mg tablet 4 mg PO Q6H PRN nausea and 01/17/25 07/15/25 07:30 Rx vomiting #60 tabs buspirone 5 mg tablet 5 mg PO BID anxiety #30 tabs 06/30/25 07/15/25 07:30 Rx Allergy/AdvReac Type Severity Reaction Status Date / Time No Known Allergies Allergy Verified 07/15/25 11:10 Family History Mother Cancer, Onset Age: 65 Leukemia- chronic Sister Cancer, Onset Age: 17 Lymphoma x2 Surgical History H/O dilation and curettage History of surgery Social History adopted: No household members: spouse and children housing: house number of children: 5 current occupational status: employed and unemployed current occupation: [employer] current occupational exposures/hazards: No pets and animals: Yes (chickens, cows) pets and animals: farm animals history of recent travel: No sexually active: Yes Smoking Status: Never smoker alcohol intake: never substance use type: does not use diet: diabetic well-balanced diet: daily or most days caffeine: No eating out: rarely or never during the past year weight has: remained stable what type of physical activity do you participate in: walking frequency: daily duration: < 15 minutes/day song/jehovah's witness: [employer] seatbelt use: sometimes do you feel safe at home: Yes additional social history: - Jomar Singh History 6 Elective abortions Hx Para 3 Spontaneous abortions 2 Hx # Term Pregnancies Ectopic pregnancies Hx # Pregnancies Multiple births # of living children 3 Past Pregnancies Del. Date Name GA/Weeks Outcome Route Bth Weight Gen Labor Lgth Anesthesia Del Locatn Provider FOB Unknown 10/2014 9 spontaneous Unknown adopted Oly (20yo) Unknown adopted Sohail(13yo) 12/13/16 Jose Juan Hadley 40 live - full term 7# Male none Henrik Hadley 07/04/19 Pérez 40 live - full term 9# Male Home Jomar 08/14/21 Sina 38 live - full term 8# Male Home Jomar 08/10/24 Joel 19 still Male none [facility] Delivery Date: Last Updated by: Sonya Courtney D&C Delivery Date: 12/13/16 Last Updated by: Sonya Courtney IOL post date Delivery Date: 07/04/19 Last Updated by: Sonya Courtney PUPS Delivery Date: 08/10/24 Last Updated by: Terra Bains, RN See problem list for complications, and ? diabetes, anora testing sent, & D and C done for retained placenta Visit Details Expected Delivery Route/Plan Labor Preferences- CB/BF classes: no labor support person: Jomar labor intervention preferences: [] pain management options preferred: limited cut cord/dad catch: yes : yes PP control planned: [] discussed possible routes of delivery and associated risks: [] special requests: [] Plans Covid status: [] Flu vaccine: [] Tdap vaccine:declined Rhogam: [] LARC form signed: [] Problem list reviewed and updated with the most current plan of care details and appropriate orders placed. Relevant counseling for the gestational age provided. Continue routine care and follow up unless otherwise noted in visit notes/problem list details OB Flowsheet Initial Weight: 230 lb Date -?-?-?-?-?-?-?-?-?-?-?-?- EGA Weight BP Urine Prot -?-?-?--?-?-?-?-?-?-?-?-?- Glucose FHR FuHt Pres Dilation -?-?-?-?-?-?-?-?-?--?-?-?- Effaced St Visit Note 04/14/25 -?-?-?-?-?-?-?-?-?-?-?-?- 13w 3d 229 lb (-16 oz) 131/81 -?-?-?-?-?-?-?-?-?-?-?-?- 150 -?-?-?-?-?-?-?-?-?-?-?-?- JV- CRL consiste nt with LMP> patient declines NIPT despite AMA. plan for MFM anatomy scan. 02/15/25 -?-?-?-?-?-?-?-?-?-?-?-?- 17w 4d 233 lb 2 oz (+3 lb 2 oz) 132/82 Negative -?-?-?-?-?-?-?-?-?-?-?-?- Negative 151 -?-?-?-?-?-?-?-?-?-?-?-?- MH-no VB. Nano crum. Getting baseline P/C ratio today as was unable to do with NOB labs. She will RTO 3 weeks inorder to save on drivers with US anatomy 03/09/25 -?-?-?-?-?-?-?-?-?-?-?-?- 20w 5d 233 lb 4 oz (+3 lb 4 oz) 134/82 Negative -?-?-?-?-?-?-?-?-?-?-?-?- Negative 154 -?-?-?-?-?-?-?-?-?-?-?-?- MH-No VB. Quentin Gamino Has glucose monitor at home and checked FBS and a couple >100 but she doesn't always go 8 hr for fasting. Discussed this, diet. She is checking because of issues in last . She will call w abnormal readings. 04/14/25 -?-?-?-?-?-?-?-?-?-?-?-?- 25w 6d 232 lb 6 oz (+2 lb 6 oz) 116/69 Negative -?-?-?-?-?-?-?-?-?-?-?-?- Negative 154 -?-?-?-?-?-?-?-?-?-?-?-?- KW- no vb/lof/ct x. good fm. adding high protein snack in the evenings to help with fasting numbers- around 100. will bring in numbers next visit and plans to do the 1 hour gct 04/26/25 -?-?-?-?-?-?-?-?-?-?-?-?- 27w 4d 231 lb 6 oz (+1 lb 6 oz) 126/83 Negative -?-?-?-?-?-?-?-?-?-?-?-?- Negative 145 29 -?-?-?-?-?-?-?-?-?-?-?-?- Sm- no vb lof go od fm no regular ctx Sm- no vb lof good fm no reg ular ctx cbc gct today too early for rhogam will give next visit 05/10/25 -?-?-?-?-?-?-?-?-?-?-?-?- 29w 4d 234 lb 1 oz (+4 lb 1 oz) 120/78 Negative -?-?-?-?-?-?-?-?-?-?-?-?- Negative 140 29 -?-?-?-?-?-?-?-?-?-?-?-?- JV- plannign 32 week scan to look at placenta placement. (was 0.5 cm from os) rhogam done today. 05/27/25 -?-?-?-?-?-?-?-?-?-?-?-?- 32w 0d 237 lb (+7 lb) 133/85 Negative -?-?-?-?-?-?-?-?-?-?-?-?- Negative 155 32 -?-?-?-?-?-?-?-?-?-?-?-?- LC- no vb/ctx/lo f. has growth scan this afternoon. mild le swelling in aft ernoons otherwise no complaints. 06/08/25 -?-?-?-?-?-?-?-?-?-?-?-?- 33w 5d 235 lb 2 oz (+5 lb 2 oz) 111/76 Negative -?-?-?-?-?-?-?-?-?-?-?-?- Negative 140 -?-?-?-?-?-?-?-?-?-?-?-?- MH-reactive NST. No VB, LOF. Good FM. No concerns 06/21/25 -?-?-?-?-?-?-?-?-?-?-?-?- 35w 4d 235 lb 8 oz (+5 lb 8 oz) 124/76 Negative -?-?-?-?-?-?-?-?-?-?-?-?- Negative 165 3 -?-?-?-?-?-?-?-?-?-?-?-?- 70 -3 KW- NST sh ows tachycardia of 165-170 and regular ctx. GBS done and to for monitoring 06/30/25 -?-?-?-?-?-?-?-?-?-?-?-?- 36w 6d 230 lb (+0 oz) Negative -?-?-?-?-?-?-?-?-?-?-?-?- Negative 140 4 -?-?-?-?-?-?-?-?-?-?-?-?- 70 -3 KW- Reacti ve NST. no concerns. no vb/lof/ctx. good fm 07/06/25 -?-?--?-?-?-?-?-?-?-?-?-?- 37w 5d 231 lb 3 oz (+1 lb 3 oz) 133/86 125/78 -?-?-?-?-?-?-?-?-?-?-?-?- 130 Transverse 3 -?-?-?-?-?-?-?-?-?-?-?-?- -4 JV- NST reactive. no complaints today. first bp was 133/89. rpt urine culture. JV- trasnverse today but hea d is right lower quadrant. recommend birthing ball and recheck end of week. NST reactive. no complaints today. first bp was 133/89. rpt urine culture. NST FHR Rate Baby A Baseline: 140 Uterine Activity:: regular ROS Constitutional Constitutional: Denies change in weight, fatigue, fever(s), headache(s), poor appetite or weakness Eyes Eyes: Denies blurry vision, change in vision, floaters, seeing flashes or spots in vision ENT HEENT: Denies dizziness, headache(s), loss taste/smell or sore throat Cardiovascular Cardiovascular: Denies chest pain, dizziness, dyspnea, irregular heart rhythm, lightheadedness, palpitations or rapid heart rate Respiratory/Chest Respiratory/Chest: Denies change in mental status, chest tightness, cough, dyspnea or breast pain Gastrointestinal Gastrointestinal: Denies anorexia, chewing difficulty, constipation, diarrhea or weight changes Genitourinary Genitourinary: Denies difficulty urinating, dysuria, flank pain, genital pain, urinary frequency or urinary urgency Musculoskeletal Musculoskeletal: Denies back pain, difficulty walking, extremity pain, joint pain, muscle cramps or muscle weakness Integumentary Integumentary: Denies lesions or unusual bruising Neurologic Neurologic: Denies abnormal movements, abnormal speech, dizziness, numbness, seizure-like activity, syncope or weakness Psychiatric Psychiatric: Denies behavioral changes, change in appetite, confusion, depression, homicidal ideation, suicidal ideation or suicidal thoughts Endocrine Endocrinology: Denies excessive sweating, polydipsia or polyuria Hematologic/Lymphatic Hematologic/Lymphatic: Denies anemia Allergic/Immunologic Allergic/Immunologic: Denies itchy eyes, lip swelling, throat swelling, tongue swelling or wheezing Vital Signs Vital Signs Vital Signs: 07/15/25 11:22 07/15/25 11:22 07/15/25 11:22 Temperature Temperature Source Temporal Pulse Rate 96 Respiratory Rate Blood Pressure 156/78 H BP Systolic 156 BP Diastolic 78 Pulse Ox 07/15/25 11:22 07/15/25 11:22 07/15/25 11:22 Temperature 98.6 F Temperature Source Pulse Rate Respiratory Rate 16 Blood Pressure BP Systolic BP Diastolic Pulse Ox 95 07/15/25 11:52 07/15/25 11:52 Temperature Temperature Source Pulse Rate 93 Respiratory Rate Blood Pressure 139/67 H BP Systolic 139 BP Diastolic 67 Pulse Ox Weight Weight: 228 lb 6.382 oz Body Mass Index (BMI) 39.2 Physical Exam Const alert, oriented x3 and no apparent distress General Appearance: cooperative Orientation / Consciousness: awake HEENT normocephalic Neck full ROM Lymph Lymphatic: no lymphadenopathy noted Chest inspection of chest normal Resp normal respiratory effort and normal air movement Effort and Inspection: able to speak in complete sentences and symmetric chest movement GI soft to palpation and non-tender Inspection: gravid Palpation: soft; Negative for tender external exam normal Back/Spine normal to inspection Extremity normal to inspection and full ROM Skin no rashes or lesions noted Psych mental status grossly normal Appearance: grossly normal Speech: normal speech Labs Labs Labs: Blood Type A NEGATIVE Antibody Screen NEGATIVE Hct, (37-47) 34.8 % L Hgb, (12.0-15.0) 11.9 g/dL L Obstetrics Ultrasound Syphilis Total Ab, (Nonreactive) Nonreactive Rubella IgG Antibody, (Nonreactive) Nonreactive Hep Bs Antigen, (Nonreactive) Nonreactive Hepatitis C Antibody, (Nonreactive) Nonreactive Chlamydia DNA (ODALYS), (Negative) Negative N.gonorrhoeae DNA (ODALYS), (Negative) Negative HIV 1&2 Antibody, (Nonreactive) Nonreactive Glucose 1 Hr 50 gm, (70-140) 119 mg/dL Assessment & Plan (1) Encounter for induction of labor: PLAN: Patient presents IAL, plan expectant management for , pitocin/AROM PRN if needed. Pain management: plans no epidural. GBS negative Management of any complications: see list I have reviewed the [facility] and made any clinically relevant updates. Dr Ramon aware of admission, plan and assessment. agrees with above (2) Uterine contractions during : COMMENT: celestone x 2, IV hydration, reactive NST, no cervical change (3) AMA (advanced maternal age) multigravida 35+: QUALIFIERS: Trimester: third trimester Qualified Code(s): O09.523 - Supervision of elderly multigravida, third trimester COMMENT: normal growth at 32 weeks IOL set up for 3 weeks on 07/15 at 7am (4) FH: Down syndrome: COMMENT: Pt Nephew (5) Obesity affecting : QUALIFIERS: Trimester: second trimester Obesity type affecting : unspecified obesity Qualified Code(s): O99.212 - Obesity complicating , second trimester COMMENT: [id number]. Weekly NSTs with growth US every 4w (6) Mild anxiety: (7) HTN (hypertension): QUALIFIERS: Hypertension type: unspecified Qualified Code(s): I10 - Essential (primary) hypertension COMMENT: Pt reports a little on the high side- baseline pih labs at [facility] ob (8) Supervision of high-risk : QUALIFIERS: Trimester: third trimester Qualified Code(s): O09.93 - Supervision of high risk , unspecified, third trimester COMMENT: PRR , DC 07/22/25, PC Oly & Sohail(adopted), Pérez Medina Matthew, ([facility]-19 wk demise), Jomar (9) : QUALIFIERS: Weeks of gestation: 37 weeks Qualified Code(s): Z3A.37 - 37 weeks gestation of COMMENT: GBS neg, discussed NIPT & Carrier testing-undecided (10) History of miscarriage, currently : COMMENT: x2, 2014 9 wk miscarriage, demise @ 19wks 08/2024 (11) Rh negative state in antepartum period: COMMENT: Rhogam given 05/10/25 Charges/Coding Multi Select Codes Urinary/Genital Urinary/Genital CPT Codes: No Charge
--- NOTE | 2025-07-15 12:25 | PN_ITS ---
Progress Note Coping well with contractions current tracing: FHT: 140 Moderate variability reactive no decelerations category I tracing [place]: regular q4 minute Contractions Membranes:ruptured at 1215 SVE:5/60/-3 g. A/P: Continue with position changes Titrate pitocin per protocol Epidural per anesthesia GBS neg Anticipate Dr Ramon aware of above assessment and agrees with plan of care Assessment & Plan Assessment/Plan (1) Encounter for induction of labor: (2) Uterine contractions during : (3) AMA (advanced maternal age) multigravida 35+: QUALIFIERS: Trimester: third trimester Qualified Code(s): O09.523 - Supervision of elderly multigravida, third trimester (4) FH: Down syndrome: (5) Obesity affecting : QUALIFIERS: Trimester: second trimester Obesity type affecting : unspecified obesity Qualified Code(s): O99.212 - Obesity complic ating , second trimester (6) Mild anxiety: (7) HTN (hypertension): QUALIFIERS: Hypertension type: unspecified Qualified Code(s): I10 - Essential (primary) hypertension (8) Supervision of high-risk : QUALIFIERS: Trimester: third trimester Qualified Code(s): O09.93 - Supervision of high risk , unspecified, third trimester (9) : QUALIFIERS: Weeks of gestation: 37 weeks Qualified Code(s): Z3A.37 - 37 weeks gestation of (10) History of miscarriage, currently : (11) Rh negative state in antepartum period: Multi Select Codes Urinary/Genital Urinary/Genital CPT Codes: No Charge
[2025-07-15 12:34] LABS: Hematocrit 35.5 % (37-47); Hemoglobin 12.0 g/dL (12.0-15.0); Immature Granulocytes Count 0.040 X10^3/uL (0.0-0.0); Mean Corp Hgb Conc 33.8 g/dL (32-36); Mean Corpuscular Volume 83.7 fL (81-99); Mean Platelet Vol. 10.8 fl (6.2-12.0); NRBC Flagged by Analyzer 0 % (0-5); Platelet Count 257 K/mm3 (150-450); RBC Distribution Width CV 13.2 % (11.6-14.6); RBC Distribution Width SD 39.4 fl (35.1-43.9); Red Blood Count 4.24 M/mm3 (4.2-5.4); White Blood Count 9.1 K/mm3 (4.4-11.0)
[2025-07-15 13:20] LABS: Syphilis Antibodies Nonreactive (Nonreactive)
[2025-07-15] MEDS: Oxytocin 15 Units/NS 250ml 15 UNITS/250 ML IV.SOLN 334 UNITS IV (17:40)
--- NOTE | 2025-07-15 17:47 | OB.VAGDELI_ITS ---
Assessment & Plan (1) Vaginal delivery: COMMENT: KW IOL 39.0 AROM Girl Gris Bernabe (2) Encounter for induction of labor: (3) Uterine contractions during : COMMENT: celestone x 2, IV hydration, reactive NST, no cervical change (4) AMA (advanced maternal age) multigravida 35+: QUALIFIERS: Trimester: third trimester Qualified Code(s): O09.523 - Supervision of elderly multigravida, third trimester COMMENT: normal growth at 32 weeks IOL set up for 3 weeks on 07/15 at 7am (5) FH: Down syndrome: COMMENT: Pt Nephew (6) Obesity affecting : QUALIFIERS: Trimester: second trimester Obesity type affecting : unspecified obesity Qualified Code(s): O99.212 - Obesity complicating , second trimester COMMENT: [id number]. Weekly NSTs with growth US every 4w (7) Mild anxiety: (8) HTN (hypertension): QUALIFIERS: Hypertension type: unspecified Qualified Code(s): I10 - Essential (primary) hypertension COMMENT: Pt reports a little on the high side- baseline pih labs at [facility] (9) Supervision of high-risk : QUALIFIERS: Trimester: third trimester Qualified Code(s): O09.93 - Supervision of high risk , unspecified, third trimester COMMENT: PRR , DC 07/22/25, CHIQUI [place] & Sohail(adopted), Pérez Medina Matthew, ([facility]-19 wk demise), Jomar (10) : QUALIFIERS: Weeks of gestation: 37 weeks Qualified Code(s): Z3A.37 - 37 weeks gestation of COMMENT: GBS neg, discussed NIPT & Carrier testing-undecided (11) History of miscarriage, currently : COMMENT: x2, 2014 9 wk miscarriage, demise @ 19wks 08/2024 (12) Rh negative state in antepartum period: COMMENT: Rhogam given 05/10/25 Maternal Data Information DC Calculator Estimated Delivery Date Method Current WG Current Estimate 07/22/25 LMP (Certain) 39w 0d Final DC: 07/22/25 Final DC Source: US >20 weeks Gestational age: 39.0 Vaginal Delivery Maternal Presentation Maternal Presentation: Medically Indicated Induction Maternal Presentation: Presented to unit for induction of labor for AMA and obesity Type of Induction: Other (AROM) Medical Reason for Induction: Maternal Medical Condition: list: (AMA) Vaginal Delivery Information Procedure Performed: Spontaneous Vaginal Delivery Surgeon/Practitioner: Nori Lomeli Date of Procedure: 07/15/25 Pre-Procedure Diagnosis: see problem list Post-Procedure Diagnosis: same Type of anesthesia: None Estimated Blood Loss: 100 Time of Delivery: 17:33 Findings Description of procedure: Progressed well to 10cm dilated and made steady progress with effective maternal pushing. Delivered the head in ALEXANDREA presentation. The head was delivered atraumatically and no nuchal cord was identified. The anterior and posterior shoulders delivered without complication followed by the rest of the and the was placed on the maternal abdomen. Delayed cord clamping was employed for approximately 3 minutes. Cord was clamped and cut and gentle traction was applied to the cord and the placenta delivered spontaneously. Immediately following, it was noted to be intact with a 3 vessel cord. Uterine bleeding stable. The perineum and vagina were inspected and noted to have no laceration. EBL was 100cc. Patient and tolerated delivery well. Apgars 8/9. Dr Greenberg notified of vaginal delivery and orders reviewed. Physician agrees with current plan of care. Presentation: Vertex Amniotic Membrane Rupture Type: Artificial Amniotic Fluid Description: Clear Placental Delivery Description: Spontaneous Placenta Disposition: [facility] Specimen collected: No Cord Vessel Description: 3 Vessels Cord Entanglement: None Infant A Gender: Female (1 minute): 8 (5 minute): 9 Delayed Cord Clamping: Yes Welder Experimental scrub woman: No Post Vaginal Deli Medications given after delivery: IV Pitocin Episiotomy Description: None Laceration: None Complication Complications: No Multi Select Codes Urinary/Genital Urinary/Genital CPT Codes: 17783 Vaginal Delivery [facility]
--- NOTE | 2025-07-15 17:51 | DCINST_ITS ---
Discharge Instructions DC O2, CPAP, BIPAP needs Home O2 Discharge instructions: No Dressing / Incision Discharge Activity: Return to Normal Activity May resume sexual activity in: 6-8 weeks Dressing / Incision Call your doctor if you observe: Fever of 101 or Higher, Coldness, Increased Pain, Numbness or Tingling, Change in Color, Inability to urinate, Inability to have a bowel movement, Using more than 1 pad per hour, Shortness of breath, Dizziness, Fainting spells, Swelling in the ankles, Chest pain, Increased palpitations (irregular heartbeat), Calf discomfort and Uncontrolled pain Follow Up Care Please Follow Up With: Nori Lomeli CNM When: Please call the office to schedule your follow up appointment in 6 weeks. If you had high blood pressure please call to schedule an appointment in 2 weeks. Test Results: Test results from this visit will be discussed in further detail at your follow- up appointment, if applicable. Discharge Plan Admission Admit Date/Time: 07/15/25 10:40 Attending Provider: Nori Lomeli Primary Care Provider: Lionel Cruz Discharge Orders/Prescriptions Prescriptions: No Action ondansetron HCl 4 mg tablet 4 mg PO Q6H PRN (Reason: nausea and vomiting) Qty: 60 4RF buspirone 5 mg tablet 5 mg PO BID Qty: 30 1RF Referrals / Follow Up: Lionel Cruz PA-C [Primary Care Provider, Medical]
[2025-07-15] MEDS: Oxytocin 15 Units/NS 250ml 15 UNITS/250 ML IV.SOLN 83 UNITS IV (19:00)
[2025-07-16] VITALS (12 sets, daily range): BP systolic 98–151; BP diastolic 54–84; PULSE 63–97; RESP 16–17; TEMP 36.4–36.9; O2SAT 94–96
--- NOTE | 2025-07-16 07:26 | PN.OBGYN_ITS ---
Subjective Subjective Patient doing well without complaints. Tolerating PO. Ambulating and voiding without difficulty. Feeding well. Denies chest pain, shortness of breath, calf pain/swelling, fevers, chills, lightheadedness. Objective Data Objective Data Vital Signs: Vital Signs Temp Pulse Resp BP Pulse Ox O2 Del Method 97.6 F L 72 17 108/55 L 95 Room Air 07/16/25 03:57 07/16/25 03:57 07/16/25 03:57 07/16/25 03:57 07/16/25 03:57 07/16/25 03:57 Oxygen Delivery Method Room Air Weight: 228 lb 6.382 oz Body Mass Index (BMI) 39.2 Intake & Output: Intake and Output for Last 24 Hours 07/14/25 07/15/25 07/16/25 23:59 23:59 23:59 Intake Total 815 / 815 Output Total 875 / 875 Balance -60 / -60 Lab / Micro Data 07/15/25 12:20 Labs: Laboratory Results - last 24 hr 07/15/25 11:15: WBC Cancelled, Corrected WBC Cancelled, RBC Cancelled, Hgb Cancelled, Hct Cancelled, MCV Cancelled, MCH Cancelled, MCHC Cancelled, RDW Std Deviation Cancelled, RDW Coeff of Angelse Cancelled, Plt Count Cancelled, MPV Cancelled, Immature Gran % (Auto) Cancelled, Neut % (Auto) Cancelled, Lymph % (Auto) Cancelled, [place] % (Auto) Cancelled, Eos % (Auto) Cancelled, Baso % (Auto) Cancelled, Absolute Neuts (auto) Cancelled, Absolute Lymphs (auto) Cancelled, Total Counted Cancelled, Neutrophils % (Manual) Cancelled, Band Neutrophils % Cancelled, Lymphocytes % (Manual) Cancelled, Monocytes % (Manual) Cancelled, Eosinophils % (Manual) Cancelled, Basophils % (Manual) Cancelled, Metamyelocytes % Cancelled, Myelocytes % Cancelled, Promyelocytes % Cancelled, Blast Cells % Cancelled, Plasma Cell % (Manual) Cancelled, Other Cells % Cancelled, Nucleated RBC % Cancelled, Nucleated RBCs/100 WBC Cancelled, Differential Comment Cancelled, Diff Path Review Cancelled, Hypersegmented Neuts Cancelled, Atypical Lymphocytes Cancelled, Reactive Lymphocytes Cancelled, Smudge Cells Cancelled, Toxic Granulation Cancelled, Toxic Vacuolation Cancelled, Dohle Bodies Cancelled, Inna Rods Cancelled, Platelet Estimate Cancelled, Plt Morphology Comment Cancelled, RBC Morphology Cancelled 07/15/25 11:15: RBC Morphology Cancelled, Polychromasia Cancelled, Hypochromasia Cancelled, Basophilic Stippling Cancelled, Anisocytosis Cancelled, Microcytosis Cancelled, Macrocytosis Cancelled, Spherocytes Cancelled, Sickle Cells Cancelled, Target Cells Cancelled, Tear Drop Cells Cancelled, Ovalocytes Cancelled, Stomatocytes Cancelled, Jc-Kurten Bodies Cancelled, Graciela Cells Cancelled, Bite Cells Cancelled, Crenated Cell Cancelled, Acanthocytes (Spur) Cancelled, Rouleaux Cancelled, Schistocytes Cancelled, Blood Type A NEGATIVE, Antibody Screen NEGATIVE 07/15/25 12:20: WBC 9.1, RBC 4.24, Hgb 12.0, Hct 35.5 L, MCV 83.7, MCH 28.3, MCHC 33.8, RDW Std Deviation 39.4, RDW Coeff of [place] 13.2, Plt Count 257, MPV 10.8, Immature Gran % (Auto) 0.400, Neut % (Auto) 74.7 H, Lymph % (Auto) 19.4, [place] % (Auto) 5.2, Eos % (Auto) 0.1, Baso % (Auto) 0.2, Absolute Neuts (auto) 6.8, Absolute Lymphs (auto) 1.77, Nucleated RBC % 0, Syphilis Total Ab Nonreactive 07/15/25 19:45: Screen NEGATIVE, Baby's Blood Type O NEGATIVE, Baby's ARIE NEGATIVE ROS Constitutional Constitutional: Reports systems reviewed and no addt'l complaints, except as documented; Denies anorexia or headache(s) Cardiovascular Cardiovascular: Reports systems reviewed and no addt'l complaints, except as documented; Denies dizziness, dyspnea, nausea or tachypnea Respiratory/Chest Respiratory/Chest: Reports systems reviewed and no addt'l complaints, except as documented; Denies cough, dyspnea, shortness of breath at rest or tachypnea Gastrointestinal Gastrointestinal: Reports systems reviewed and no addt'l complaints, except as documented; Denies abdominal pain, constipation or nausea Genitourinary Genitourinary: Reports systems reviewed and no addt'l complaints, except as documented; Denies burning urination, difficulty urinating, dysuria, urinary frequency or urinary incontinence Musculoskeletal Musculoskeletal: Reports systems reviewed and no addt'l complaints, except as documented Integumentary Integumentary: Reports systems reviewed and no addt'l complaints, except as documented Neurologic Neurologic: Reports systems reviewed and no addt'l complaints, except as documented; Denies abnormal speech, dizziness or headache(s) Psychiatric Psychiatric: Reports systems reviewed and no addt'l complaints, except as documented Endocrine Endocrinology: Reports systems reviewed and no addt'l complaints, except as documented Hematologic/Lymphatic Hematologic/Lymphatic: Reports systems reviewed and no addt'l complaints, except as documented Physical Exam Const alert, oriented x3 and no apparent distress Neck full ROM Resp normal respiratory effort, normal air movement and no retractions Effort and Inspection: able to speak in complete sentences and symmetric chest movement GI soft to palpation Bladder / Kidney Exam: bladder normal to palpation Uterus Palpation: uterus fundus firm Extremity normal to inspection and full ROM Psych mental status grossly normal, thought process normal and cooperative Assessment & Plan (1) Vaginal delivery: COMMENT: KW IOL 39.0 AROM Girl Gris Bernabe PLAN: s/p PPD # 1 1. routine post delivery care 2. breast feeding- support given 3. rh positive 4. rubella immune 5. Discharge home (2) Encounter for induction of labor: (3) Uterine contractions during : COMMENT: celestone x 2, IV hydration, reactive NST, no cervical change (4) AMA (advanced maternal age) multigravida 35+: QUALIFIERS: Trimester: third trimester Qualified Code(s): O09.523 - Supervision of elderly multigravida, third trimester COMMENT: normal growth at 32 weeks IOL set up for 3 weeks on 07/15 at 7am (5) FH: Down syndrome: COMMENT: Pt Nephew (6) Obesity affecting : QUALIFIERS: Trimester: second trimester Obesity type affecting : unspecified obesity Qualified Code(s): O99.212 - Obesity complicating , second trimester COMMENT: [id number]. Weekly NSTs with growth US every 4w (7) Mild anxiety: (8) HTN (hypertension): QUALIFIERS: Hypertension type: unspecified Qualified Code(s): I10 - Essential (primary) hypertension COMMENT: Pt reports a little on the high side- baseline pih labs at [facility] ob (9) Supervision of high-risk : QUALIFIERS: Trimester: third trimester Qualified Code(s): O09.93 - Supervision of high risk , unspecified, third trimester COMMENT: PRR , DC 07/22/25, [facility](adopted), P[facility]rez Medina Matthew, ([facility]-19 wk demise), Jomar (10) : QUALIFIERS: Weeks of gestation: 37 weeks Qualified Code(s): Z 3A.37 - 37 weeks gestation of COMMENT: GBS neg, discussed NIPT & Carrier testing-undecided (11) Rh negative state in antepartum period: COMMENT: Rhogam given 05/10/25 (12) History of miscarriage, currently : COMMENT: x2, 2014 9 wk miscarriage, demise @ 19wks 08/2024 Charges/Coding Multi Select Codes Urinary/Genital Urinary/Genital CPT Codes: No Charge
== END 2025-07-16 18:30 | disposition home or self-care (01) | DRG 807 ==
PROVIDERS: Admitting Provider Advanced Practice Midwife; PCP Physician Assistant; Referring Provider Advanced Practice Midwife; Visit Provider Advanced Practice Midwife
DX: O99.214 Obesity complicating childbirth (principal); Z37.0 Single live birth; O99.344 Other mental disorders complicating childbirth; F41.9 Anxiety disorder, unspecified; O10.02 Pre-existing essential hypertension complicating childbirth; O26.893 Other specified pregnancy related conditions, third trimester; Z67.91 Unspecified blood type, Rh negative; Z3A.39 39 weeks gestation of pregnancy; Z79.899 Other long term (current) drug therapy; Z87.59 Personal history of other complications of pregnancy, childbirth and the puerperium; Z82.79 Family history of other congenital malformations, deformations and chromosomal abnormalities
CPT/HCPCS: 59025; 59050; 85025; 85461; 86780; 86850; 86900; 86901; 99221; G0378